=== PATIENT | female | born 1975 | race Caucasian/White ===

== ENCOUNTER 2017-07-24 21:33 | Emergency (ER) | payer MEDICAID, SELFPAY ==
[2017-07-24 21:35] VITALS: BP 161/97; PULSE 100; RESP 16; TEMP 36.7; O2SAT 100; BMI 25.1
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
[2017-07-24 21:53] VITALS: BP 154/103; PULSE 89; RESP 16; O2SAT 98
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
[2017-07-24] MEDS: HYDROcodone Bitartrate/Apap 5/325 Tablet PO (22:06)
[2017-07-24] MEDS: Ondansetron ODT 4 MG Tablet PO (22:06)
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
[2017-07-24 23:07] VITALS: BP 150/83; PULSE 78; RESP 16; O2SAT 98
== END 2017-07-24 23:09 | disposition home or self-care (01) ==
LOC: ED 22:07
PROVIDERS: Emergency Provider Emergency Medicine; Family Provider Nurse Practitioner Family; PCP Nurse Practitioner Family
DX: S00.33XA Contusion of nose, initial encounter (principal); S05.12XA Contusion of eyeball and orbital tissues, left eye, initial encounter; S05.11XA Contusion of eyeball and orbital tissues, right eye, initial encounter; H43.392 Other vitreous opacities, left eye; I10 Essential (primary) hypertension; F17.210 Nicotine dependence, cigarettes, uncomplicated; Z79.899 Other long term (current) drug therapy; Y04.2XXA Assault by strike against or bumped into by another person, initial encounter; Y93.89 Activity, other specified; Y92.89 Other specified places as the place of occurrence of the external cause; Y99.8 Other external cause status
CPT/HCPCS: 70450; 70486; 99283

== ENCOUNTER → 2017-09-28 13:45 | Outpatient (CLI) | payer MEDICAID, SELFPAY ==
--- NOTE | 2017-09-28 | CER_PTH ---
PATIENT: SIMON PALACIO LOC: [facility] U#:[id number] AGE/SX: 49/F ROOM: RE09/28/[address]: Dr. John Campos MD : 1975 BED: DIS: SPEC #: [id number] RECD: 09/28/17 13:37 STATUS: ONUR ELBERT #: [id number] GUS: 09/28/17 00:[address]: John Campos DEPT: SURGICAL PATHOLOGY RECD BY: David Moreno Tissues: A - Uterine cervix, NOS B - Endocervical Procedures: Surgery Specimen Level IV HEADER OPERATION: Colposcopy PRE-OP DIAGNOSIS: HGSIL pap 02/2017 TISSUE SUBMITTED: A ? Cervical biopsy 10 o?clock, B - ECC MICROSCOPIC DIAGNOSIS A. Cervix at 10 o?clock, biopsy: Mild squamous dysplasia, WILTON I (LGSIL). Changes consistent with HPV cytopathic effect. B. Endocervix, curettings: Strips of benign endocervix with squamous metaplasia. Strips of squamous epithelium with mild to moderate squamous dysplasia, WILTON I-II (HGSIL). AM:selin 10/02/17 COMMENT A. Results from immunohistochemistry ([id number]) for surrogate HPV marker (p16) will be reported separately. Case has been reviewed in consultation with Dr. Wang who concurs with the above diagnosis. IDC:IVANIA MICROSCOPIC DESCRIPTION Slides are reviewed. GROSS DESCRIPTION A - Received in fixative is one container labeled with the patient's name and designated cervical biopsy 10 o'clock. The specimen consists of multiple fragments of mucoid tissue that in aggregate measure 2 x 0.2 x 0.1 cm. The specimen is totally submitted in one cassette. B - Received in fixative is one container labeled with the patient's name and designated ECC. The specimen consists of multiple fragments of hemorrhagic mucoid tissue that in aggregate measure 3 x 2.5 x 0.2 cm. The specimen is totally submitted in one cassette. / IVANIA:selin 09/29/17 TC:0 CPT: 09949 x2
--- NOTE | 2017-09-28 | IMM_PTH ---
PATIENT: SIMON PALACIO LOC: [facility] U#:[id number] AGE/SX: 49/F ROOM: RE09/28/[address]: Dr. John Campos MD : 1975 BED: DIS: SPEC #: [id number] RECD: 10/02/17 14:23 STATUS: ONUR RENidia #: [id number] GUS: 09/28/17 00:[address]: John Campos DEPT: IMMUNOHISTOCHEMISTRY RECD BY: Bhumi Ramirez Tissues: A - Uterine cervix, NOS B - Endocervical Procedures: p16 (initial) KI-67 (add) PHYSICIAN & [place] [id number] SPECIMEN INFORMATION: Tissue Source: A ? Cervical biopsy 10 o?clock, B - [facility] Clinical Info: HGSIL Specimen Number: [id number] A & B CPT code: 19958 x2, 26296 x2 METHODOLOGY: Deparaffinized sections of prefer/formalin-fixed tissue or PAP/DQ stained slides are incubated with monoclonal/polyclonal antibodies/oligonucleotide probes. Localization is made via biotin free immunoperoxidase method. Appropriate controls are performed and reacted as expected. Results on target cell population are indicated in the following table: RESULTS: ANTIBODY / CLONE RESULT Block A P16 (E6H4) positive, rare cells Ki-67 (30-9) positive, focal Block B P16 (E6H4) positive, block-like Ki-67 (30-9) positive, moderate These tests were developed and their performance characteristics determined by [facility]. They may not have been cleared or approved by the U.S. Food and Drug Administration. The FDA has determined that such clearance or approval is not necessary. INTERPRETATION: A. Cervix at 10 o?clock, biopsy: Consistent with mild squamous dysplasia. B. Endocervix, curettings: Mild to moderate squamous dysplasia, WILTON I-II (HGSIL). AM:selin 10/06/17
== END ==
PROVIDERS: Visit Provider Obstetrics & Gynecology
DX: R87.612 Low grade squamous intraepithelial lesion on cytologic smear of cervix (LGSIL) (principal)
CPT/HCPCS: 88305; 88341; 88342

== ENCOUNTER 2017-11-08 08:03 | Day surgery (SDC) | payer MEDICAID, SELFPAY ==
[2017-11-07 15:31] LABS: Hematocrit 45.1 % (37-47); Hemoglobin 14.8 g/dl (12.0-15.0); Mean Corp Hgb Conc 32.8 g/gl (32-36); Mean Corpuscular Hgb 31.5 pg (27.0-32.0); Mean Platelet Vol. 9.5 fl (6.2-12.0); Platelet Count 231 K/mm3 (150-450); RBC Distribution Width CV 14.6 % (11.6-14.6); RBC Distribution Width SD 51.4 fl (35.1-43.9); White Blood Count 4.5 K/mm3 (4.4-11.0)
[2017-11-07 15:37] LABS: Scan Indicated on CBC? Y/N NO
[2017-11-07 15:40] LABS: Prothrombin Time (Protime)PT. 13.1 SECONDS (11.7-14.9)
[2017-11-07 15:41] LABS: Partial Thromboplast Time 30.3 Seconds (24.1-36.2)
[2017-11-07 15:54] LABS: Pregnancy, Serum, hCG Quali. NEGATIVE Negative (0-9 Nonpreg)
--- NOTE | 2017-11-08 | IMM_PTH ---
PATIENT: SIMON PALACIO [place]: [facility] [place] U#:[id number] AGE/SX: 42/F ROOM: RE11/08/[address]: Dr. John Campos MD : 1975 BED: DIS: 11/08/2017 SPEC #: [id number] RECD: 11/09/17 12:40 STATUS: ONUR REQ #: [id number] GUS: 11/08/17 00:[address]: John Campos DEPT: IMMUNOHISTOCHEMISTRY RECD BY: Bhumi Ramirez ENTERED: 11/09/17 12:41 SP TYPE: IMMUNO OTHR DR: Berta Narayanan, SVITLANA-C Tissues: Uterine cervix, NOS Procedures: p16 (initial) KI-67 (add) P16 (add) PHYSICIAN & INSTITUTION [place] [address] SPECIMEN INFORMATION: Tissue Source: LEEFroylan hernandez Clinical Info: Cervical dysplasia Specimen Number: [id number] #2 & 4 CPT code: 06292, 72342 x3 METHODOLOGY: Deparaffinized sections of prefer/formalin-fixed tissue or PAP/DQ stained slides are incubated with monoclonal/polyclonal antibodies/oligonucleotide probes. Localization is made via biotin free immunoperoxidase method. Appropriate controls are performed and reacted as expected. Results on target cell population are indicated in the following table: RESULTS: ANTIBODY / CLONE RESULT Block 2 P16 (E6H4) positive, focal and patchy Ki-67 (30-9) positive, low to moderate Block 4 P16 (E6H4) positive, focal and patchy Ki-67 (30-9) positive, low These tests were developed and their performance characteristics determined by [facility]. They may not have been cleared or approved by the U.S. Food and Drug Administration. The FDA has determined that such clearance or approval is not necessary. INTERPRETATION: LEEP cone: Focal mild squamous dysplasia. IVANIA:selin 11/10/17
[2017-11-08 08:34] LABS: Internal QC Validated? YES +Cl - CLEAR BKGD
[2017-11-08 08:36] LABS: Pregnancy, Urine Negative Negative
[2017-11-08 08:42] VITALS: BP 122/83; PULSE 78; RESP 18; TEMP 36.6; O2SAT 98; BMI 25.7
--- NOTE | 2017-11-08 09:30 | CONE_PTH ---
PATIENT: SIMON PALACIO LOC: [facility] [place] U#:[id number] AGE/SX: 42/F ROOM: RE11/08/[address]: Dr. John Campos MD : 1975 BED: DIS: 11/08/2017 SPEC #: [id number] RECD: 11/08/17 12:14 STATUS: ONUR ELBERT #: [id number] GUS: 11/08/17 09:[address]: John Campos DEPT: SURGICAL PATHOLOGY RECD BY: Yusuf Muhammad ENTERED: 11/08/17 12:28 SP TYPE: Leep Cone MECHELLE DR: Berta Narayanan, SVITLANA-C Tissues: UTERINE CERVIX LEEP Procedures: Surgery Specimen Level V HEADER OPERATION: LEEP cone PRE-OP DIAGNOSIS: Cervical dysplasia TISSUE SUBMITTED: LEEP cone MICROSCOPIC DIAGNOSIS Cervix, LEEP conization: Mild squamous dysplasia (LGSIL, WILTON I). The resection margins are free of dysplastic changes. Focal mild acute and chronic inflammation and squamous metaplasia. :selin 11/09/17 COMMENT Please make reference to previous specimen ([id number]) cervix at 10 o?clock, biopsy with diagnosis of mild squamous dysplasia and endocervix, curettings with diagnosis of strips of squamous epithelium with mild to moderate squamous dysplasia. Results from immunohistochemistry ([id number]) for surrogate HPV marker (p16) will be reported separately. MICROSCOPIC DESCRIPTION Slides are reviewed. GROSS DESCRIPTION Received in fixative is one container labeled with the patient's name and designated LEE cone. The specimen consists of an irregular fragment of smooth, glistening barba mucosa with attached submucosal tissue measuring 2.1 x 1.2 cm and a depth of excision measuring 1 cm. No mucosal mass lesions are identified. The specimen is inked, radially sectioned and totally submitted in four cassettes: 1 ? presumed 12-3 o?clock, 2 ? presumed 3-6 o?clock, 3 ? presumed 6-9 o?clock, 4 ? presumed 9-12 o?clock. / AM:selin 11/08/17 TC:5 CPT: 05690
--- NOTE | 2017-11-08 10:04 | PCM.DC ---
- Discharge Diagnoses Reason(s) for Visit for Discharge Instructions: LEEP You will use the following diet at home:: No restrictions Discharge Activity: Return to Normal Activity, May Drive, May not drive while taking narcotic pain medications., May Shower Return to work on:: 11/13/17 May resume sexual activity in: 4 weeks Call your doctor if your incision/area has: Sudden Increased Bleeding, Increased Pain/ Swelling, Foul Smelling Discharge Call your doctor if you observe: Fever of 101 or Higher, Inability to urinate, Inability to have a bowel movement, Using more than one pad per hour, Shortness of breath, Chest pain, Calf discomfort, Uncontrolled pain Cleanse incision/area with: Soap & Water Allergies/Adverse Reactions: Allergies Penicillins Allergy (Verified 10/31/17 13:23) Hives Medications to take at Discharge Lisinopril 20 mg PO DAILY 07/24/17 Ergocalciferol [Vitamin D] 50,000 unit PO Q7D 11/08/17 Ibuprofen [Ibu] 600 mg PO Q6H PRN PRN #30 tab 11/08/17 [place]-3 Fatty Acids/Fish Oil [Fish Oil 1,000 mg Capsule] 2 each PO DAILY 11/08/17 Oxycodone [Oxyir] 5 mg PO Q4H PRN PRN 7 Days #14 tab 11/08/17 The following prescriptions were given: Oxycodone [Oxyir] 5 mg PO Q4H PRN PRN 7 Days #14 tab PRN Reason: Severe Pain (6-10/10) Ibuprofen [Ibu] 600 mg PO Q6H PRN PRN #30 tab PRN Reason: pain or cramping Primary Care Physician: Berta Narayanan NP-C [Primary Care Provider] - Please Follow Up With: John Campos MD When: one week Proposed Discharge Date: 11/08/17
--- NOTE | 2017-11-08 10:06 | PCM.OPRPT ---
Problem List (1) Moderate cervical dysplasia, histologically confirmed Status: Chronic Report of Operation Date of Procedure: 11/08/17 Pre-Operative Diagnosis: Moderate Cervical Dysplasia Post-Operative Diagnosis: same Surgery/Procedure Performed:: Loop Electrosurgical Excisional Procedure Description of Surgical Findings:: Normal appearing cervix. Transition zone well defined with nonstaining area extending to 2 to 3 o'clock laboratory coordinator: None Type of Anesthesia:: MAC Anesthesiologist: Antoni Pinto Special Medications: none Specimen's removed: portion of cervix Drains: none Estimated Blood Loss (mL): minimal Fluids Replaced: 400cc Description of Procedure: Oxana was taken to the OR with IV running. She was given clindamycin and gentamicin intravenously prior to the procedure. MAC anesthesia was then introduced without complication. She was then prepped and draped in the dorsal lithotomy position. The bladder was drained with a red rubber catheter. A shielded speculum was then placed. The cervix was identified and painted with lugol's solution to define the transition zone. Using a hand held loop the exocervix was removed. Ball cautery was then used to cauterize the base of the cervical defect and margins including the endocervix. Hemostasis was assured. All instruments were then removed. Sponge and instrument counts were correct. She was reversed from anesthesia and taken to the recovery room in stable condition. Grafts/Implants Used: none - Complications none - Admit VTE Documentation VTE Present on Admission: No VTE Mechan Device Prophylaxis: SCD's VTE Pharm Prophylaxis ordered?: No
[2017-11-08] MEDS: Clindamycin 900 MG/50 ML BAG 75 MG IV (10:25)
[2017-11-08 11:00] VITALS: BP 122/83; BP 133/78; PULSE 85; RESP 16; TEMP 37; O2SAT 97
[2017-11-08 11:15] VITALS: BP 122/83; BP 123/76; PULSE 80; RESP 16; O2SAT 96
[2017-11-08 11:30] VITALS: BP 111/72; BP 122/83; PULSE 72; RESP 16; O2SAT 96
[2017-11-08 11:35] VITALS: BP 111/72; BP 122/83; PULSE 67; RESP 16; TEMP 37.1; O2SAT 94
[2017-11-08 12:25] VITALS: BP 122/83
== END 2017-11-08 12:29 | disposition home or self-care (01) ==
LOC: SDC 08:04 → AC 08:05
PROVIDERS: Family Provider Nurse Practitioner Family; PCP Nurse Practitioner Family; Visit Provider Obstetrics & Gynecology
PROC: 0UBC7ZZ Excision of Cervix, Via Natural or Artificial Opening (ICD-10-PCS; CPT 57522; principal; 2017-11-08 09:15)
DX: R87.612 Low grade squamous intraepithelial lesion on cytologic smear of cervix (LGSIL) (principal); N72 Inflammatory disease of cervix uteri; I10 Essential (primary) hypertension; F17.200 Nicotine dependence, unspecified, uncomplicated; Z86.2 Personal history of diseases of the blood and blood-forming organs and certain disorders involving the immune mechanism; Z79.899 Other long term (current) drug therapy
CPT/HCPCS: 00940; 57460; 36415; 81025; 84703; 85027; 85610; 85730; 86850; 86900; 88307; 88341; 88342; J7120

== ENCOUNTER 2017-11-28 16:53 | Emergency (ER) | payer MEDICAID, SELFPAY ==
[2017-11-28 16:54] VITALS: BP 124/74; PULSE 98; RESP 16; TEMP 37; O2SAT 100; BMI 25.7
--- NOTE | 2017-11-28 17:10 | CT_ITS ---
STUDY: CT ABDOMEN AND PELVIS WITHOUT CONTRAST REASON FOR EXAM: Female, 42 years old. Right flank pain. Nausea. RADIATION DOSAGE (If Supplied By Facility): CTDIvol = ( 9.62 ) mGy, DLP = ( 464.55 ) mGycm TECHNIQUE: Transaxial images were obtained from the dome of the diaphragm to the symphysis pubis without oral contrast, and without intravenous contrast. Sagittal and coronal images were reconstructed. Individualized dose optimization techniques were used for this CT. COMPARISON: August 26, 2013. FINDINGS: The visualized lung bases are unremarkable. The visualized portions of the heart are within normal limits. Normal liver. The gallbladder is contracted. Normal spleen. Normal pancreas. Normal bilateral adrenal glands. Normal right kidney. Normal left kidney. No stones or hydronephrosis. Normal visualized stomach. Normal small intestine. Normal colon. The appendix is visualized and appears normal. There is mild atherosclerotic calcification of the abdominal aorta, without a demonstrated aneurysm. Normal inferior vena cava. Normal retroperitoneum. Normal urinary bladder. Normal visualized uterus. There is no free fluid in the abdomen or pelvis. Normal abdominal wall. Normal osseous structures. CT/Abdomen/Pelvis without Cont IMPRESSION: No urinary stones or hydronephrosis. Contracted gallbladder No obstruction. Electronically Signed: Willi Raya MD at 18:40 EDT , Service support ,
[2017-11-28 17:25] LABS: Bacteria 0 SEEN /hpf (None Seen); Mucous, Urine 0 SEEN /hpf (<or=2+); Red Blood Cells-Urine 0 SEEN /hpf (0-5)
[2017-11-28 17:29] LABS: Color, Urine Yellow (Yellow); Glucose, Dipstick Normal (Normal); Ketone-Dipstick Negative (Negative); Leukocyte Esterase-Dipstick 500 /ul (Negative); Nitrite-Dipstick Negative (Negative); Occult Blood-Urine Negative /ul (Negative); Protein-Dipstick Negative (Negative); Urine Bilirubin Dipstick Negative (Negative); Urine Clarity Clear (Clear); Urine Urobilinogen Normal (Normal); Urine pH 6.5 (5.0 - 8.0)
[2017-11-28] MEDS: Ondansetron 4 MG/2 ML Vial IV (17:37)
[2017-11-28] MEDS: Ketorolac 30 MG/ML Syringe IV (17:39)
[2017-11-28 17:42] LABS: Squamous Epithelial Cells - UA 0-5 SEEN /hpf (5-10); White Blood Cells 0-5 SEEN /hpf (0-5)
--- NOTE | 2017-11-28 17:48 | ED.VISSUMM ---
- ER Visit Summary Date of Service: 11/28/17 Chief Complaint: Right flank pain History of Present Illness: The patient is a 42 F presenting with right flank pain. She states this started on Monday. She states it has progressively worsened. She has nausea with no vomiting. She has mild constipation. She complains of dysuria. Denies other complaints. Physical Examination: Vitals are stable. Patient is afebrile. Alert no acute distress. HEENT exam is unremarkable. Neck is supple. Lungs are clear and equal bilaterally. Heart is regular rate and rhythm. Abdomen is soft right lower quadrant tenderness with no rebound or guarding Back: right CVA tenderness Extremities are unremarkable. Skin is warm and dry. No focal neurologic deficit. Remainder of exam is unremarkable. Emergency Department Course and Treatment: Patient is given Toradol, Zofran. CBC, chemistries unremarkable. Urinalysis is unremarkable. HCG negative. CT abdomen pelvis shows no urinary stones or hydronephrosis. Contracted gallbladder. No obstruction. She continues to have pain and was given morphine, Phenergan. Pelvic ultrasound shows left adnexal cyst. On reevaluation, she is resting comfortably. She is advised to follow-up with her COMPRESSOR OPERATOR and primary care physician. She is advised return to ED if she has any worsening complaints. Disposition: Discharge home Impression: Abdominal pain, left adnexal cyst This note was generated with [employer] dictation software. It may contain incorrect words, spelling, and punctuation that were not noted in review of the chart prior to signing ED Disposition - Plan for ED Patient: Chief Complaint: Flank Pain Instructions: ED Abdominal Pain Unkn Cause, ED Cyst Ovarian Prescriptions: Hydrocodone Bitart/Apap 5-325 [[place] 5MG-325MG] 1 tablet PO Q4H PRN PRN 2 Days #8 tablet PRN Reason: Pain Ondansetron [Zofran Odt] 4 mg PO Q8H PRN PRN #10 tablet PRN Reason: Nausea Referrals: Berta Narayanan NP-C [Primary Care Provider] -
[2017-11-28 17:50] LABS: Absolute Lymphocyte Count 1.89 X10^3/ul (0.83-4.51); Absolute Neutrophil Count 5.3 X10^3/uL (2.0-7.7); Basophil# 0.02 X10^3/uL; Basophil% 0.3 % (0-1); Eosinophil# 0.05 X10^3/uL; Eosinophils% 0.6 % (0-5); Hematocrit 46.1 % (37-47); Hemoglobin 15.2 g/dl (12.0-15.0); Lymphocyte # 1.89 X10^3/ul (4.0); Lymphocyte % 24.2 % (19-41); Mean Corpuscular Hgb 31.1 pg (27.0-32.0); Mean Corpuscular Volume 94.5 fL (81-99); Mean Platelet Vol. 9.2 fl (6.2-12.0); Monocyte# 0.52 X10^3/uL; Monocyte% 6.6 % (0-10); Neutrophil # 5.33 X10^3/uL (2.7-7.7); Neutrophil % 68.2 % (47-70); Platelet Count 233 K/mm3 (150-450); RBC Distribution Width CV 14.5 % (11.6-14.6); RBC Distribution Width SD 49.9 fl (35.1-43.9); Red Blood Count 4.88 M/mm3 (4.2-5.4); White Blood Count 7.8 K/mm3 (4.4-11.0)
[2017-11-28 17:53] LABS: POSITIVE COUNT NO; POSITIVE DIFFERENTIAL NO; POSITIVE MORPHOLOGY NO
[2017-11-28 18:04] LABS: Anion Gap 10 (5-15); BUN 7 mg/dL (7-18); BUN/Creat Ratio 7.8 RATIO (10-20); Calcium,Total 8.8 mg/dL (8.5-10.1); Chloride 105 mmol/L (98-107); EST Glomerular Filtration Rate 74 mL/min (>60); Est Glom Filt Rate - Afr Amer 89 mL/min (>60); Glucose 90 mg/dL (74-106); Potassium 3.9 mmol/L (3.5-5.1); Sodium Level 139 mmol/L (136-145)
[2017-11-28 18:30] LABS: Pregnancy, Serum, hCG Quali. NEGATIVE Negative (0-9 Nonpreg)
--- NOTE | 2017-11-28 18:48 | US_ITS ---
STUDY: ULTRASOUND OF THE FEMALE PELVIS - COMPLETE REASON FOR EXAM: Female, 42 years old. Right lower quadrant pain. LMP: November 10, 2017. TECHNIQUE: Transabdominal. TECHNICAL QUALITY: Adequate. COMPARISON: None. FINDINGS: The uterus is anteverted and is in a midline position. The uterus measures 8.5 x 4.7 x 3.7 cm. Normal uterine cervix. The endometrium measures 11 mm in thickness, and is heterogeneous (striated). There is no demonstrated endometrial mass. There is no demonstrated myometrial mass. I.U.D. - The patient does not have an I.U.D. The right ovary is visualized. The right ovary measures 3.2 x 2.4 x 1.5 cm. There is no right ovarian cyst or ovarian mass. There is no visualized right adnexal mass or complex lesion. There is normal arterial and normal venous vascularity. The left ovary is visualized. The left ovary measures 4.2 x 2.7 x 1.6 cm. There is 2.7 cm cyst. There is no visualized left adnexal mass or complex lesion. There is normal arterial and normal venous vascularity. There is no fluid in the cul-de-sac. The pre void volume of the bladder was 179 ml. US/Pelvic (Non ) IMPRESSION: Left adnexal cyst. Electronically Signed: Willi Raya MD at 20:14 EDT , Service support ,
[2017-11-28] MEDS: proMETHazine 25 MG/ML Syringe 6.25 MG IV (19:00)
[2017-11-28] MEDS: Morphine 4 MG/ML Syringe IV (19:00)
[2017-11-28 19:02] VITALS: BP 134/77; PULSE 69; RESP 15; O2SAT 98
--- NOTE | 2017-11-28 20:17 | NURSING ---
REQUESTED PAIN MEDICATION AND LET THE DOCTOR KNOW THAT WE WILL GIVE HER MEDICATION BEFORE WE DO THE PELVIC EXAM TO ALLEVIATE SOME OF THE PAIN.
--- NOTE | 2017-11-28 21:44 | ED.DEP ---
ED Disposition - Plan for ED Patient: Chief Complaint: Flank Pain Instructions: ED Cyst Ovarian, ED Abdominal Pain Unkn Cause Prescriptions: Hydrocodone Bitart/Apap 5-325 [[place] 5MG-325MG] 1 tablet PO Q4H PRN PRN 2 Days #8 tablet PRN Reason: Pain Ondansetron [Zofran Odt] 4 mg PO Q8H PRN PRN #10 tablet PRN Reason: Nausea Referrals: Berta Narayanan, REELER OPERATOR-C [Primary Care Provider] -
--- NOTE | 2017-11-28 21:46 | DCINST.ED_ITS ---
ED Disposition - Plan for ED Patient: Chief Complaint: Flank Pain Instructions: ED Cyst Ovarian, ED Abdominal Pain Unkn Cause Prescriptions: Hydrocodone Bitart/Apap 5-325 [[place] 5MG-325MG] 1 tablet PO Q4H PRN PRN 2 Days # 8 tablet PRN Reason: Pain Ondansetron [Zofran Odt] 4 mg PO Q8H PRN PRN #10 tablet PRN Reason: Nausea Referrals: Berta Narayanan, INSTRUCTOR APPAREL MANUFACTURE-C [Primary Care Provider] -
[2017-11-28 21:58] VITALS: BP 111/69; PULSE 73; RESP 18; O2SAT 97
--- NOTE | 2017-11-28 22:00 | NURSING ---
DOCTOR DECIDED TO NOT DO THE PELVIC EXAM AND DID NOT WANT TO GIVE HER THE MEDICATION FOR PAIN. PT WAS D/C WITH RX FOR NORCO AND ZOFRAN.
== END 2017-11-28 22:01 | disposition home or self-care (01) ==
LOC: ED 17:30
PROVIDERS: Emergency Provider Emergency Medicine; Family Provider Nurse Practitioner Family; PCP Nurse Practitioner Family
DX: N83.202 Unspecified ovarian cyst, left side (principal); R10.9 Unspecified abdominal pain; I10 Essential (primary) hypertension; E78.00 Pure hypercholesterolemia, unspecified; Z72.0 Tobacco use; Z79.899 Other long term (current) drug therapy
CPT/HCPCS: 74176; 76856; 80048; 81001; 84703; 85025; 93976; 96374; 96375; 99283; A4216; J2405

== ENCOUNTER 2018-03-04 16:01 | Emergency (ER) | payer MEDICAID, SELFPAY ==
[2018-03-04 16:02] VITALS: BP 174/85; PULSE 139; RESP 16; TEMP 36.6; O2SAT 100; BMI 26.4
[2018-03-04 16:15] LABS: Bedside Glucose 92 mg/dL (70-110)
--- NOTE | 2018-03-04 16:29 | EKG12_ITS ---
Test Reason : Blood Pressure : / mmHG Vent. Rate : 135 BPM Atrial Rate : 135 BPM P-R Int : 134 ms QRS Dur : 080 ms QT Int : 366 ms P-R-T Axes : 075 064 087 degrees QTc Int : 549 ms Sinus tachycardia Poor R wave progression Nonspecific ST and T wave abnormality Abnormal ECG Confirmed by FABRICIO WALTON, MEMO ([id number]), editor & co founder IGOR CORTES ([id number] on 03/07/2018 2:33:58 PM Referred By: JADE Confirmed By:MEMO REGALADO MD
--- NOTE | 2018-03-04 16:29 | CT_ITS ---
STUDY: CT BRAIN WITHOUT CONTRAST REASON FOR EXAM: Female, 42 years old. Dizziness, headache. Numbness and tingling in feet. RADIATION DOSAGE (If Supplied By Facility): CTDIvol = ( 44.99 ) mGy, DLP = ( 745.49 ) mGycm TECHNIQUE: Transaxial CT imaging of the brain was performed without administration of intravenous contrast material. Individualized dose optimization techniques were used for this CT. COMPARISON: Noncontrast CT brain July 24, 2017. FINDINGS: Normal soft tissue structures. Normal calvarium. Normal size ventricles and extra-axial spaces for the patient's age. Normal white matter tracts of the cerebral hemispheres. Normal basal ganglia and thalami. Normal brainstem. Normal cerebellum. There is no intracranial hemorrhage. There are no findings of an acute ischemic infarction. Normal visualized paranasal sinuses. CT/Brain/Head without Contrast IMPRESSION: Normal unenhanced CT scan of the brain. Electronically Signed: Nate Gilman MD at 17:15 EDT , Service support ,
[2018-03-04] MEDS: 0.9% Normal Saline 1,000 ML 1000 ML IV (16:41)
[2018-03-04] MEDS: LORazepam 2 MG/ML Syringe 1 MG IV ×2 (16:42→18:45)
[2018-03-04] MEDS: proMETHazine 25 MG/ML Syringe 6.25 MG IV (16:42)
[2018-03-04 16:57] LABS: Absolute Lymphocyte Count 1.26 X10^3/ul (0.83-4.51); Absolute Neutrophil Count 9.3 X10^3/uL (2.0-7.7); Basophil# 0.03 X10^3/uL; Basophil% 0.3 % (0-1); Hematocrit 44.9 % (37-47); Hemoglobin 14.7 g/dl (12.0-15.0); Lymphocyte # 1.26 X10^3/ul (4.0); Lymphocyte % 11.4 % (19-41); Mean Corp Hgb Conc 32.7 g/gl (32-36); Mean Corpuscular Hgb 29.5 pg (27.0-32.0); Mean Corpuscular Volume 90.2 fL (81-99); Mean Platelet Vol. 9.5 fl (6.2-12.0); Monocyte# 0.47 X10^3/uL; Monocyte% 4.3 % (0-10); Neutrophil # 9.26 X10^3/uL (2.7-7.7); Neutrophil % 83.9 % (47-70); Platelet Count 215 K/mm3 (150-450); RBC Distribution Width CV 16.6 % (11.6-14.6); RBC Distribution Width SD 54.4 fl (35.1-43.9); Red Blood Count 4.98 M/mm3 (4.2-5.4)
[2018-03-04 17:03] LABS: POSITIVE COUNT NO; POSITIVE DIFFERENTIAL NO; POSITIVE MORPHOLOGY NO
[2018-03-04 17:11] LABS: D-Dimer Quantitative (DVT/PE) 1.17 FEU/ug/m (0.27-0.49)
--- NOTE | 2018-03-04 17:11 | ED.RN ---
DDIMER 1.[address] CALL[address] LAB. DR HINES AWARE
[2018-03-04 17:12] LABS: ALB/GLOB Ratio 0.9 RATIO (0.9-2.4); AST(SGOT) 26 U/L (15-37); Alanine Aminotransfer ALT/SGPT 25 U/L (13-56); Albumin, Serum 3.7 g/dL (3.2-5.0); Alkaline Phosphatase 86 U/L (45-117); Anion Gap 19 (5-15); BUN 8 mg/dL (7-18); BUN/Creat Ratio 9.9 RATIO (10-20); Calcium,Total 8.5 mg/dL (8.5-10.1); Chloride 99 mmol/L (98-107); Creatinine, Serum 0.81 mg/dL (0.55-1.02); EST Glomerular Filtration Rate 83 mL/min (>60); Est Glom Filt Rate - Afr Amer 100 mL/min (>60); Estimated Creatinine Clearance 79.72 ml/min; Globulin 3.9 g/dL (2.2-4.2); Glucose 115 mg/dL (74-106); Lipase 108 U/L (73-393); Potassium 3.7 mmol/L (3.5-5.1); Protein, Total 7.6 g/dL (6.4-8.2); Sodium Level 134 mmol/L (136-145)
[2018-03-04 17:17] LABS: Pregnancy, Serum, hCG Quali. NEGATIVE Negative (0-9 Nonpreg)
--- NOTE | 2018-03-04 17:28 | CT_ITS ---
STUDY: CTA CHEST REASON FOR EXAM: Female, 42 years old. Tachycardia RADIATION DOSAGE (If Supplied By Facility): CTDIvol = ( 5.66 ) mGy, DLP = ( 244.47 ) mGycm TECHNIQUE: The examination was performed with the intravenous administration of 100 ml of Isovue 370 contrast material. Post-processing of the angiographic images was performed, with multiplanar reformation and 3D reconstruction. Individualized dose optimization techniques were used for this CT. COMPARISON: None. FINDINGS: Normal enhancement of the main pulmonary artery and right and left pulmonary arteries. Normal enhancement of the bilateral peripheral pulmonary arteries. There is no demonstrated pulmonary embolism. Normal thoracic aorta and visualized great vessels. There is no demonstrated aortic dissection. Normal heart and pericardium. Normal mediastinum. Normal hilar regions. Normal visualized trachea and bronchi. The lungs are well expanded. There is a 3.6 mm left lower lobe nodule image 114 of series 2. There is a 3 mm pleural-based nodule of the left lower lobe, image 107 of series 2. There is a pleural-based 3 mm nodule of the right upper lobe image 167 of series 2. Normal pleura. Normal chest wall structures. Normal osseous structures. Normal visualized upper abdomen. CT/CTA Chest W/WO Contrast IMPRESSION: Normal CTA chest examination, without a demonstrated pulmonary embolism or arterial dissection. Bilateral pulmonary nodules. Appropriate follow-up using Fleischner Society criteria is recommended. Electronically Signed: Alexander Maurice MD at 19:24 EDT , Service support ,
[2018-03-04 18:28] VITALS: BP 138/72; PULSE 121; RESP 17; O2SAT 97
[2018-03-04 19:05] LABS: Amphetamine Urine VISTA POSITIVE (<1000 ng/mL); Barbiturate Urine VISTA NEGATIVE (< 200 ng/mL); Benzodiazepine Urine VISTA NEGATIVE (< 200 ng/mL); Cocaine Urine VISTA NEGATIVE (< 300 ng/mL); Ecstacy Urine VISTA NEGATIVE (< 500 ng/mL); Methadone Urine VISTA NEGATIVE (< 300 ng/mL); PCP Urine VISTA NEGATIVE (< 25 ng/mL); THC Urine VISTA NEGATIVE (< 50 ng/mL); Vista UDS pH Range 7
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
--- NOTE | 2018-03-04 19:46 | DCINST.ED_ITS ---
ED Disposition - Plan for ED Patient: Chief Complaint: Dizziness Instructions: ED Hyperventilation Syndrome, Hypoglycemia (Low Blood Sugar), ED Drug Abuse General, Understanding Methamphetamine Abuse and Addiction Prescriptions: Lorazepam [Ativan] 1 mg PO TID PRN #10 tab PRN Reason: Anxiety Referrals: Berta Narayanan, CODING FILE CLERK-C [Primary Care Provider] - 3-5 Days
[2018-03-04 20:03] VITALS: BP 126/72; PULSE 112; RESP 18; O2SAT 96
== END 2018-03-04 20:04 | disposition home or self-care (01) ==
PROVIDERS: Emergency Provider Emergency Medicine; Family Provider Nurse Practitioner Family; PCP Nurse Practitioner Family
DX: R51 Headache (principal); T43.625A Adverse effect of amphetamines, initial encounter; F45.8 Other somatoform disorders; F10.239 Alcohol dependence with withdrawal, unspecified; E16.2 Hypoglycemia, unspecified; I10 Essential (primary) hypertension; E78.00 Pure hypercholesterolemia, unspecified; Z72.0 Tobacco use; Z79.899 Other long term (current) drug therapy; Y92.009 Unspecified place in unspecified non-institutional (private) residence as the place of occurrence of the external cause
CPT/HCPCS: 36415; 70450; 71275; 80053; 80307; 82962; 83690; 84484; 84703; 85025; 85379; 93005; 96361; 96374; 96375; 96376; 99285; J7030; Q9967; A4216

== ENCOUNTER 2018-04-23 14:45 | Emergency (ER) | payer MEDICAID, SELFPAY ==
[2018-04-23 14:46] VITALS: BP 143/100; PULSE 82; RESP 18; TEMP 36.6; O2SAT 99; BMI 24.3
== END 2018-04-23 15:26 | disposition left against medical advice (07) ==
LOC: ED 15:15
PROVIDERS: Emergency Provider Emergency Medicine; Family Provider Nurse Practitioner Family; PCP Nurse Practitioner Family
DX: R10.9 Unspecified abdominal pain (principal)

== ENCOUNTER → 2018-06-06 05:46 | Outpatient (CLI) | payer MEDICAID, SELFPAY ==
[2018-05-07 11:44] LABS: Hematocrit 39.5 % (37-47); Hemoglobin 13.4 g/dl (12.0-15.0); Mean Corp Hgb Conc 33.9 g/gl (32-36); Mean Corpuscular Hgb 30.9 pg (27.0-32.0); Mean Platelet Vol. 10.1 fl (6.2-12.0); Platelet Count 224 K/mm3 (150-450); RBC Distribution Width CV 13.8 % (11.6-14.6); RBC Distribution Width SD 45.5 fl (35.1-43.9); Red Blood Count 4.34 M/mm3 (4.2-5.4); Scan Indicated on CBC? Y/N NO; White Blood Count 4.3 K/mm3 (4.4-11.0)
[2018-05-07 11:53] LABS: Prothrombin Time (Protime)PT. 13.4 SECONDS (11.7-14.9)
[2018-05-07 12:18] LABS: hCG Titer Quant., Serum < 1 mIU/mL (<9 non-preg)
--- OUTSIDE RECORDS SUMMARY | 2018-09-07 07:25 | XMS RPT_ITS ---
:1975 Author Organization OHIP Support Name Relationship Address Phone AUSTIN, WILL Unavailable Unavailable + AUSTIN, WILL Unavailable Unavailable + COUCH, PIO Unavailable [address] + [place] [address] [facility] Unavailable [address] + [place] [address] COUCH, JEMIMA Unavailable Unavailable + NOT GIVEN Unavailable Unavailable Unavailable UVALDO, [place] COUCH, JEMIMA Unavailable Unavailable + NOT GIVEN Unavailable Unavailable Unavailable [place], [place] STANFORD AUSTIN Unavailable Unavailable + AUSTIN, WILL Unavailable Unavailable + AUSTIN, WILL Unavailable Unavailable + COUCH, PIO Unavailable [address] + [place] [address] [facility] Unavailable [address] + [place] [address] COUCH, JEMIMA Unavailable Unavailable + NOT GIVEN Unavailable Unavailable Unavailable UVAL[place], [place] AUSTIN, WILL Unavailable Unavailable + AUSTIN, WILL Unavailable Unavailable + COUCH, PIO Unavailable [address] + [place] [address] [facility] Unavailable [address] + [place] [address] NORMAN STANFORD Unavailable Unavailable + COUCH, PIO Unavailable [address] + [place] [address] [facility] Unavailable [address] + [place] [address] COUCH, PIO Unavailable [address] + [place] [address] [facility] Unavailable [address] + [place] [address] AUSTIN, WILL Unavailable Unavailable + AUSTIN, WILL Unavailable Unavailable + COUCH, PIO Unavailable [address] + [place] [address] UE Unavailable Unavailable Unavailable COUCH, PIO Unavailable [address] + [place] [address] UE Unavailable Unavailable Unavailable Care Team Providers Name Role Phone Oracio, Pio DIGITAL PERFORMANCE ANALYST-C Primary Care Unavailable Tez Zavala Attending Unavailable John Capmos Attending Unavailable John Campos Referring Unavailable John Campos Attending Unavailable Oracio, Pio DIGITAL PERFORMANCE ANALYST-C Primary Care Unavailable John Campos Referring Unavailable Oracio, Pio DIGITAL PERFORMANCE ANALYST-C Primary Care Unavailable Anusha Loco Attending Unavailable Oracio, Pio DIGITAL PERFORMANCE ANALYST-C Primary Care Unavailable Lyubov Elizalde Attending Unavailable Oracio, Pio DIGITAL PERFORMANCE ANALYST-C Primary Care Unavailable Anselmo Doherty Attending Unavailable John Campos Attending Unavailable Oracio, Pio DIGITAL PERFORMANCE ANALYST-C Primary Care Unavailable John Campos Referring Unavailable NITA VAZQUEZ Admitting Unavailable NITA VAZQUEZ Attending Unavailable ORACIO, PIO K Primary Care Unavailable ORACIO, PIO K Consulting Unavailable Oracio, Pio K Admitting Unavailable Oracio, Pio K Attending Unavailable Oracio, Pio K Primary Care Unavailable Oracio, Pio K Primary Care Unavailable Caleb Lane Admitting Unavailable Caleb Lane Attending Unavailable Oracio, Pio K Primary Care Unavailable DO Catherine Mcneill DO Admitting Unavailable DO Catherine Mcneill DO Attending Unavailable MALIHA GOMEZ MD Attending Unavailable ORACIO FRAMING MANAGER, PIO K Primary Care Unavailable MARILEE NAVARRO Attending Unavailable ORACIO FRAMING MANAGER, PIO K Primary Care Unavailable IMELDA OLIVIA MD Attending Unavailable ORACIO FRAMING MANAGER, PIO K Primary Care Unavailable FE CORTES DO Attending Unavailable ORACIO FRAMING MANAGER, PIO K Primary Care Unavailable PRIYANK QUARLES (FRAMING MANAGER) Attending Unavailable PRIYANK QUARLES (FRAMING MANAGER) Referring Unavailable ORACIO, PIO Admitting Unavailable ORACIO, PIO Attending Unavailable ORACIO, PIO Primary Care Unavailable EMILIE, DR DAVID Diez Admitting Unavailable EMILIE, DR DAVID Diez Attending Unavailable ORACIO, PIO Referring Unavailable EMILIE, DR DAVID Diez Primary Care Unavailable ORACIO, PIO Consulting Unavailable PROVIDER, UNKNOWN Consulting Unavailable MARGUERITE COPELANDMY M Admitting Unavailable MIN REANNA M Attending Unavailable ORACIO, PIO Referring Unavailable HABERANTON REANNA M Primary Care Unavailable ORACIO, PIO Consulting Unavailable PROVIDER, UNKNOWN Consulting Unavailable PROBLEMS PROBLEMS DATE TYPE CONDITION / CODE ATTENDING STATUS SOURCE 03/26/2018 Principle Hyperlipidemia, PIO NARAYANAN Active [facility] Diagnosis unspecified / [facility] E785(ICD-10) Hospital Repository 03/26/2018 Secondary Essential (primary) PIO NARAYANAN Active [facility] Diagnosis hypertension / [facility] I10(ICD-10) Hospital Repository 03/26/2018 Secondary Encounter for PIO NARAYANAN Active [facility] Diagnosis screening for other [facility] suspected endocrine Hospital disorder / Repository Z1329(ICD-10) 03/26/2018 Secondary Vitamin D PIO NARAYANAN Active [facility] Diagnosis deficiency, [facility] unspecified / Hospital E559(ICD-10) Repository 03/20/2018 Active Hypoglycemia, NA Active [facility] unspecified / [facility] E16.2(ICD-10) [place] Repository 03/20/2018 Active Hypotension, NA Active [facility] unspecified / [facility] I95.9(ICD-10) [facility] Repository 03/20/2018 Active Tachycardia, NA Active [facility] unspecified / [facility] R00.0(ICD-10) [facility] Repository 03/20/2018 Active Mixed hyperlipidemia NA Active [facility] / E78.2(ICD-10) [facility] [place] Repository 11/28/2017 Unknown N83.209 - [facility], Active [facility] Unspecified ovarian [facility] cyst, unspecified Hospital side / Repository N83.209(ICD-10) 11/09/2017 Unknown G89.18 - Other acute Seals, John Active [facility] postprocedural pain Community / G89.18(ICD-10) Hospital Repository 11/08/2017 Admitting PAIN IN RIGHT FOOT / NITA VAZQUEZ Active [facility] diagnosis M79.671(ICD-10) [facility] Hospital Repository 11/08/2017 Unknown GOUT UNSPECIFIED / NITA VAZQUEZ Active [facility] M10.9(ICD-10) B Hospital Repository PROCEDURES PROCEDURES No Procedure Records FoundRESULTS RESULTS UA Collected: 07/08/2018 Status: F Source: [facility] 11:53 AM [facility] EMERGENCY DEPARTMENT REPOSITORY TYPE CODE TESTS RESULT OUT OF RANGE REFERENCE UNITS LAB SPCUA([place] NC) UA Specimen Type Clean Catch LAB CLRUA([place] NC) UA Color Yellow LAB APPUA([place] Clear NC) UA Appear Unknown Slightly Cloudy LAB SGUA(LOIN 1.015-1.025 C) UA Spec Unknown Grav >=1.030 LAB GLUA(LOIN Negative mg/dL C) UA Glucose Negative LAB BILUA([place] Negative NC) UA Bili Negative LAB KETUA([place] Negative mg/dL NC) UA Ketones Negative LAB BLDUA(MAR[place] Negative NC) UA Blood Unknown Moderate LAB PHUA(LOIN 5.0 - 8.0 C) UA pH 6.0 LAB PROUA(MAR[place] Negative mg/dL NC) UA Protein Negative LAB UROUA(MAR[place] 0.2-1.0 E.U./dL NC) UA Urobilinogen 0.2 LAB NITUA(MAR[place] Negative NC) UA Nitrite Negative LAB LEUUA(MAR[place] Negative NC) UA Leuk Est Unknown Moderate Performed By: #### UA, UAMICAO #### [place] [address] .URINALYSIS MICROSCOPIC Collected: 07/08/2018 Status: F Source: [place] ([place]) 11:53 AM [facility] REPOSITORY TYPE CODE TESTS RESULT OUT OF RANGE REFERENCE UNITS LAB WBCUA(LOIN None Seen /hpf C) Unknown UA WBC 10-15 LAB RBCUA(LOIN None Seen /hpf C) Unknown UA RBC 10-15 LAB EPIUA(LOIN None Seen /hpf C) Unknown UA Squam Epithelial 10-15 LAB MUCUA(LOIN /hpf C) UA Mucous 1+ LAB AMOUA(LOIN /hpf C) UA Amorphus Trace LAB BACUA(LOIN /hpf C) Unknown UA Bacteria Trace Performed By: #### UA, UAMICAO #### [place] [address] US PELVIC Observed: 05/26/2018 Status: F Source: [facility] 4:14 PM [facility] [place]IT[place] [address] Patient: OXANA TANG Phone#: : [phone] Age: 42 Gender: F Pt. Type: ER Account: [id number] Location: [facility] Ordering: DR. REANNA SHIPMAN Exam Date: 05/26/2018/15:04 Family Phys: PIO NARAYANAN Charge Code: 428278 Physician: Esmeralda Order #: [id number] DLP Dose#: PROCEDURE: PELVIC ULTRASOUND, TRANSABDOMINAL COMPARISON: None. INDICATIONS: Left pelvic pain TECHNIQUE: Pelvic ultrasound was performed in the usual manner. FINDINGS: UTERUS: Size is 8.8 x 3.9 x 5.2 cm with unremarkable appearance. Endometrial thickness is 8.2 mm. ADNEXAE: Normal bilateral appearance with no significant masses. Each ovary is normal in size for a patient of this age. Bilateral follicular cysts are present. CUL-DE-SAC: Trace free fluid is present in the cul-de-sac. OTHER: Negative. CONCLUSION: 1. Bilateral follicular cysts are present. There is trace free fluid in the cul-de-sac. Dictated by: Fabiola Walls MD on 05/26/2018 at 16:50 Approved by: Fabiola Walls MD on 05/26/2018 at 16:50 URINE Collected: 05/26/2018 Status: F Source: [facility] 1:29 PM [facility] REPOSITORY TYPE CODE TESTS RESULT OUT OF REFERENCE UNITS RANGE LAB NEGATIVE UR(LOINC) UR NEGATIVE LAB INTERNAL QC(LOINC) INTERNAL QC PASS LAB EXTERNAL QC DONE?(LOINC) EXTERNAL QC YES DONE? Performed By: #### [id number] #### [facility],[address] [place], [place] [id number] URINALYSIS Collected: 05/26/2018 Status: F Source: [facility] 1:28 PM [facility] REPOSITORY TYPE CODE TESTS RESULT OUT OF REFERENCE UNITS RANGE LAB URINALYSIS (LOINC) URINALYSIS Result Comment: URINALYSIS LAB Specimen Type(LOINC) Specimen Void Type LAB Color(LOINC) NORMAL: YELLOW Color p.yel LAB Clarity(LOINC) NORMAL: CLEAR Clarity clear LAB ph(LOINC) NORMAL: 5.0-8.0 ph 7 LAB Protein(LOINC) NORMAL: NEGATIVE Protein NEG LAB Glucose(LOINC) NORMAL: NORMAL Glucose NORM LAB Ketone(LOINC) NORMAL: NEGATIVE Ketone NEG LAB Bilirubin(LOINC) NORMAL: NEGATIVE Bilirubin NEG LAB Blood(LOINC) NORMAL: NEGATIVE Blood NEG LAB Urobilinog(LOINC) NORMAL: NORMAL Urobilinog NORM LAB Sp [place](LOINC) NORMAL: 1.010-1.030 Sp [place] 1.005 Low LAB Nitrite(LOINC) NORMAL: NEGATIVE Nitrite NEG LAB Leukocytes(LOINC) NORMAL: NEGATIVE Leukocytes NEG LAB Microscopic(LOINC ) Microscopic NOT INDICATED Performed By: #### [id number] #### [place] [address] CT KUB (KIDNEY STONE Observed: 05/20/2018 Status: F Source: [facility] PROTOCOL) 5:39 PM [place] [address] Patient: OXANA TANG Phone#: : [phone] Age: 42 Gender: F Pt. Type: ER Account: [id number] Location: [facility] Ordering: DAVID PHAN Exam Date: 05/20/2018/17:31 Family Phys: PIO NARAYANAN Charge Code: 800363 Physician: Esmeralda Order #: [id number] DLP Dose#: PROCEDURE: CT ABDOMEN AND PELVIS WITHOUT CONTRAST COMPARISON: None. INDICATIONS: Left Sided Pain TECHNIQUE: After obtaining the patient's consent, CT images of the abdomen and pelvis were created without non-ionic intravenous contrast material. All CT scans at this facility use dose modulation, iterative reconstruction, and/or weight based dosing when appropriate to reduce radiation dose to as low as reasonably achievable. IV CONTRAST: No IV contrast used,0ml TOTAL DOSE: 6.7 CTDIvol(mGy) FINDINGS: Evaluation of solid organs and soft tissues is limited without intravenous contrast. KIDNEYS: No nephrolithiasis or hydronephrosis. Kidneys are unremarkable in contour. ADRENALS: Normal. No mass or enlargement. URINARY BLADDER: Mild bladder wall thickening, greater than expected for degree of distention. LIVER: Unremarkable in contour. BILIARY: The gallbladder is decompressed. PANCREAS: Unremarkable in contour. SPLEEN: Unremarkable in contour. AORTA/VASCULAR: No aortic aneurysm. There are atherosclerotic calcifications of the aorta. RETROPERITONEUM: Normal. No mass or adenopathy. BOWEL/MESENTERY: No bowel obstruction or dilatation. Moderate diffuse stool throughout the colon. Fatty infiltration in the ascending colonic wall. The appendix is unremarkable. ABDOMINAL WALL: Normal. No mass or hernia. PELVIC NODES: Normal. No adenopathy. PELVIC ORGANS: Uterus is present. The ovaries are lobulated in contour, incompletely characterized on this exam. BONES: Normal. No bony lesion or fracture. Continued Report - Page 2 of 2 Patient: OXANA TANG Phone#: : [phone] Age: 42 Gender: F Pt. Type: ER Account: [id number] Location: [facility] Ordering: DAVID PHAN Exam Date: 05/20/2018/17:31 Family Phys: PIO NARAYANAN Charge Code: [id number] Physician: Esmeralda Order #: [id number] DLP Dose#: LUNG BASES: Normal. No visible pulmonary or pleural disease. OTHER: Genital piercing with streak artifact noted. CONCLUSION: 1. Urinary bladder wall thickening, suspect cystitis. Recommend clinical correlation. 2. No nephrolithiasis or hydronephrosis. 3. Fatty infiltration of the ascending colonic wall. This may represent sequela of inflammatory bowel disease versus incidental finding. 4. Lobulated contour of the ovaries, incompletely characterized on this exam. Consider elective pelvic ultrasound when the patient's acute symptoms have resolved. Dictated by: Xiomara Herzog MD on 05/20/2018 at 18:03 Approved by: Xiomara Herzog MD on 05/20/2018 at 18:03 URINALYSIS Collected: 05/20/2018 Status: F Source: [facility] 5:30 PM [facility] REPOSITORY TYPE CODE TESTS RESULT OUT OF REFERENCE UNITS RANGE LAB URINALYSIS (LOINC) URINALYSIS Result Comment: URINALYSIS LAB Specimen Type(LOINC) Specimen Type UNSPECIFIED LAB Color(LOINC) NORMAL: YELLOW Color p.yel LAB Clarity(LOINC) NORMAL: CLEAR Clarity sl.cloudy LAB ph(LOINC) NORMAL: 5.0-8.0 ph 7 LAB Protein(LOINC) NORMAL: NEGATIVE Protein NEG LAB Glucose(LOINC) NORMAL: NORMAL Glucose NORM LAB Ketone(LOINC) NORMAL: NEGATIVE Ketone NEG LAB Bilirubin(LOINC) NORMAL: NEGATIVE NEG Bilirubin LAB Blood(LOINC) NORMAL: NEGATIVE Blood 10 Abnormal LAB Urobilinog(LOINC NORMAL: ) NORMAL NORM Urobilinog LAB Sp NORMAL: [place](LOINC) 1.010-1.030 Sp 1.010 [place] LAB Nitrite(LOINC) NORMAL: NEGATIVE Nitrite POS LAB Leukocytes(LOINC NORMAL: ) NEGATIVE 500 Abnormal Leukocytes LAB Microscopic(LOIN C) SEE Microscopic BELOW Result Comment: MICROSCOPIC LAB Wbc(LOINC) 0-5/hpf Wbc >50 LAB Rbc(LOINC) 0-3/hpf Rbc NONE LAB Casts(LOINC) Casts NONE LAB Crystals(LOINC) Crystals NONE LAB Amorphous(LOINC) Amorphous NONE LAB Bacteria(LOINC) Bacteria 3+ LAB Epi Cells(LOINC) Epi Cells OCC LAB Mucous(LOINC) Mucous NONE LAB Yeast(LOINC) Yeast NONE Performed By: #### [id number] #### [facility],[address] [place] [address] Observed: 05/20/2018 Status: F Source: [facility] CULTURE URINE 5:30 PM [facility] REPOSITORY CULTURE URINE _URINE CULTURE_ M I C R O B I O L O G Y R E P O R T FINAL Antimicrobial Susceptibility and Organism Identification Report Specimen Number : [id number] Requested : 05/20/18 Specimen Source : URINE Collected : 05/20/18 17:30 [place] [facility] Isolation : Emergency Room Received : 05/20/18 17:30 Requesting Physician : KRUPA VANCE Patient/Specimen Tests and Comments Specimen Comments FINAL REPORT: URINE COLONY COUNT: > THAN 100,000 CFU/CC GRAM NEGATIVE RODS Organisms Identified -------- * 01 Escherichia coli 05/22/18 Comments >100,000 cfu Tech : Source : URINE ID # : [id number] FINAL Report Date : / / : Collected : 05/20/18 17:30 Continued on Next Page M I C R O B I O L O G Y R E P O R T FINAL Antimicrobial Susceptibility and Organism Identification Report Isolate 01 Escherichia coli Escherichia coli DRUG JONATHAN Sys. Urine UNITS --- ----- ----- Amp/Sulbactam 16/8 I I Ampicillin >16 R R Aztreonam <=8 S S Ceftriaxone <=8 S S Ceftazidime <=1 S S Cephalothin 16 I Ciprofloxacin <=1 S S Cefuroxime <=4 S S Ertapenem <=1 S S Nitrofurantoin <=32 S Gentamicin <=4 S S Imipenem <=1 S S Levofloxacin <=2 S S Meropenem <=1 S S Pip/Tazo <=16 S S Piperacillin >64 R R Trimeth/Sulfa <=2/38 S S Tetracycline <=4 S S Tobramycin <=4 S S +, ++, +++, or S = Susceptible N/R = Not Reported Yusuf = Beta Lactamase Positive I = Intermediate CC = Cost Code TFG = Thymidine-dependent Strain R = Resistant JONATHAN = mcg/ml (mg/L) Blank = Data not available, or drug not advisable or tested For Blood and CSF Isolates, a Beta-Lactamase test is recommended for Enterococus species. IB appears in place of S, I (S), +, ++, or +++ with species known to possess inducible B-lactamases; potentially they may become resistant to all B-lactam drugs. Monitoring of patients during/after therapy is recommended. Avoid other/combined B-lactam drugs. (a) Use maximum doses of drug with an aminoglycoside for P. aeruginosa in patients with granulocytopenia or serious infections. (b) Breakpoints based on parenteral dose. For cefuroxime Axetil (PO) use <8=S, 8-16=I, >16=R. (c) For non-enterococcal streptococci, Micrococcus species, and Listeria species, refer to the Ampicillin interpretation. * Interpretations based on approx. adult attainable systemic/urine levels, except drugs with <3 dilutions, which print NCCLS. Doses are guidelines; consider weight and renal/hepatic function. Urine interpretation for lower UTI only. Interpretations based on NCCLS M7-A2. Ticar/K Clav'ate for gram positives based on claims clerk's breakpoints. Tech : Source : URINE ID # : [id number] FINAL Report Date : / / : Collected : 05/20/18 17:30 05/22/18.0707.YASSINEO. 05/21/18.1114.BKO. 05/22/18.0707.BKO.COMPLETE Performed By: #### [id number] #### [place] [address] LACTATE Collected: 05/20/2018 Status: F Source: [facility] 5:14 PM [facility] REPOSITORY TYPE CODE TESTS RESULT OUT OF REFERENCE UNITS RANGE LAB LACTATE(MARÍA ELENA 4.5 - 18.0 mg/dL AK) LACTATE 12.4 Performed By: #### [id number] #### [place] [address] CMP WITH EGFR Collected: 05/20/2018 Status: F Source: [facility] 5:14 PM [facility] REPOSITORY TYPE CODE TESTS RESULT OUT OF RANGE REFERENCE UNITS LAB CMP with eGFR(LOINC) CMP with eGFR Result Comment: COMPREHENSIVE METABOLIC PANEL LAB SODIUM(LOINC) 136 - 145 mmol/l SODIUM 137 LAB POTASSIUM(LOINC) 3.5 - 5.1 mmol/L POTASSIUM 3.7 LAB CHLORIDE(LOINC) 98 - 107 mmol/L CHLORIDE 106 LAB CO2(LOINC) 21.0 - mmol/L 31.0 CO2 24.5 LAB GLUCOSE(LOINC) 74 - 106 mg/dl GLUCOSE High 122 LAB BUN(LOINC) 6 - 20 mg/dl BUN 8 LAB CREATININE(LOINC) 0.6 - 1.2 mg/dl CREATININE 0.8 LAB AST/SGOT(LOINC) 13 - 39 U/L AST/SGOT 18 LAB ALK PHOS(LOINC) 38 - 126 U/L ALK PHOS 50 LAB CALCIUM(LOINC) 8.6 - mg/dl 10.2 CALCIUM 9.4 LAB TOTAL 6.4 - 8.3 g/dl PROTEIN(LOINC) TOTAL PROTEIN 6.9 LAB ALBUMIN(LOINC) 3.4 - 4.8 g/dL ALBUMIN 3.9 LAB GLOBULIN(LOINC) 1.5 - 3.8 G/DL GLOBULIN 3.0 LAB A/G RATIO(LOINC) 0.9 - 1.6 A/G RATIO 1.3 LAB TOTAL BILI(LOINC) 0.0 - 1.5 mg/dl TOTAL BILI 0.2 LAB B/C RATIO(LOINC) 0 - 30 ratio B/C RATIO 10 LAB ALT/SGPT(LOINC) 8 - 35 U/L ALT/SGPT 13 LAB ANION GAP(LOINC) 10 - 20 mmol/L ANION GAP 10 LAB AGE(LOINC) years AGE 42 LAB eGFR(LOINC) 60 - 999 ML/MINUTE eGFR >60 LAB eGFR(AA)(LOINC) 60 - 999 ML/MINUTE eGFR(AA) >60 Result Comment: ACCORDING TO THE NATIONAL KIDNEY DISEASE EDUCATION PROGRAM(NKDE), A NORMAL eGFR IS A VALUE GREATER THAN OR EQUAL TO 60 ML/MIN/1.73 SQ METERS. CHRONIC KIDNEY DISEASE: <60mL/MIN/1.73 SQ METERS KIDNEY FAILURE: <15mL/MIN/1.73 SQ METERS THIS TEST SHOULD ONLY BE USED FOR PATIENTS 18 YEARS OF AGE AND OLDER. Performed By: #### [id number] #### [facility],[address] [place], [place] [address] CBC Collected: 05/20/2018 Status: F [facility] REPOSITORY TYPE CODE TESTS RESULT OUT OF RANGE REFERENCE UNITS LAB CBC(LOINC) CBC Result Comment: CBC-COMPLETE BLOOD COUNT LAB WBC(LOINC) 4.5 - 10.8 x 10EE3/UL WBC 6.7 LAB RBC(LOINC) 4.10 - x 10EE6/UL 5.30 RBC 4.47 LAB HEMOGLOBIN(LOINC) 12.0 - g/dl 16.0 HEMOGLOBIN 13.7 LAB HEMATOCRIT(LOINC) 34.0 - % 46.0 HEMATOCRIT 40.5 LAB MCV(LOINC) 80 - 99 fl MCV 91 LAB MCH(LOINC) 27 - 33 pg MCH 31 LAB MCHC(LOINC) 32 - 36 X10 3 MCHC 34 LAB RDW/CV(LOINC) 12.0 - % 15.6 RDW/CV 14.1 LAB PLATELET(LOINC) 150 - 450 x10EE3/UL PLATELET 215 LAB MPV(LOINC) 6.6 - 10.5 fl MPV 8.1 Result Comment: AUTOMATED DIFFERENTIAL LAB NEUT %(LOINC) 46.0 - 76.0 % NEUT % 65.8 LAB LYMPH %(LOINC) 20.0 - 45.0 % LYMPH % 27.9 LAB MONOS %(LOINC) 0.0 - 10.0 % MONOS % 5.0 LAB EO %(LOINC) 0.0 - 7.0 % EO % 0.6 LAB BASO %(LOINC) 0.0 - 2.0 % BASO % 0.7 LAB Lymph #(LOINC) 0.80 - 2.80 x10EE3/U L Lymph # 1.90 LAB Neut #(LOINC) 1.50 - 7.10 x10EE3/U L Neut # 4.40 LAB [place] #(LOINC) 0.20 - 1.00 x10EE3/U L [place] # 0.30 LAB EO #(LOINC) 0.00 - 0.50 x10EE3/U L EO # 0.00 LAB Baso #(LOINC) 0.00 - 0.10 x10EE3/U L Baso # 0.00 LAB MANUAL DIFF(LOINC) MANUAL DIFF SEE BELOW LAB SEGS(LOINC) 50 - 70 % SEGS 64 LAB LYMPH(LOINC) 20 - 40 % LYMPH 32 LAB MONOS(LOINC) 0 - 8 % MONOS 3 LAB BASO(LOINC) 0.0 - 2.0 % BASO 1.0 LAB CELL COUNT(LOINC) CELL COUNT 100 LAB MORPHOLOGY(LOINC ) MORPHOLOGY NORMAL Result Comment: {CD] Performed By: #### [id number] #### [facility],[address] [place] [address] Observed: 05/20/2018 Status: F Source: [facility] CULTURE BLOOD 5:14 PM [facility] REPOSITORY CULTURE BLOOD CULTURE BLOOD SET: 1 of 24HOUR REPORT NEGATIVE 48HOUR REPORT NEGATIVE 72HOUR REPORT NEGATIVE M I C R O B I O L O G Y R E P O R T FINAL Antimicrobial Susceptibility and Organism Identification Report Specimen Number : [id number] Requested : 05/20/18 Specimen Source : BLOOD Collected : 05/20/18 17:14 [place] of Isolation : Emergency Room Received : 05/20/18 17:14 Requesting Physician : KRUPA VANCE Patient/Specimen Tests and Comments Specimen Comments FINAL REPORT: No Growth at 5 Days Tech : Source : BLOOD ID # : [id number] FINAL Report Date : / / : Collected : 05/20/18 17:14 05/26/18.26.JLN. 05/26/18.625.FRANCOIS.COMPLETE Performed By: #### [id number] #### [facility],[address] [place] [address] EMERGENCY REPORT Observed: 05/20/2018 Status: F Source: [facility] 4:46 PM [facility] EMERGENCY ROOM REPORT NAME ACCOUNT SEX AGE ADMIT DISCHARGE PT MED. RECORD# NUMBER DATE DATE TYPE PIA [id number] F 42 05/20/18 05/20/18 3 OXANA Phillips [id number] ROOM: ER DATE OF : 1975 DICTATING PHYSICIAN: David Phan CHIEF COMPLAINT: Abdominal pain. HISTORY OF PRESENT ILLNESS: The patient states since last night she has had left-sided abdominal pain that seems to be focused to the low abdomen, but radiates a bit to the left flank. Additionally, she has had urinary pressure, somewhat urgency sensation. She feels like she has to go, and when she does go has pain, but is not having significant frequency. She has not had fever or chills, minimal nausea. She has not had fever. She has had some slight chills, mild nausea, but no vomiting. She states that she has noticed that her urine has had a strong odor today. PAST MEDICAL HISTORY: Significant for previous kidney stones, previous kidney infections; otherwise, no significant medical problems. PAST SURGICAL HISTORY: She has had previous tonsillectomy. MEDICATIONS: Per med rec list. ALLERGIES: She is allergic to penicillin and Benadryl. SOCIAL HISTORY: She lives at home. She does smoke. She drinks alcohol occasionally. REVIEW OF SYSTEMS: No recent injury or trauma. No diarrhea. No cough, congestion, or shortness of breath. PHYSICAL EXAMINATION: This is a 42-year-old female alert, appropriate, does not appear toxic or in acute distress. Her skin is pink, warm, and dry. No rashes. HEENT: All normal. Neck is supple without JVD. Lungs are clear without crackles or wheezes. Cardiac exam is regular rhythm without any ectopy, murmurs, gallops, or rubs. Abdomen is soft. She does have some diffuse left-sided abdominal tenderness that seems to be most tender at the left low quadrant. No masses. No guarding or rebound. Bowel sounds are present. She does have some slight left flank pain and tenderness. She moves all extremities appropriately without any focal weaknesses. Good peripheral pulses. Good capillary refill. Vital signs: Temperature 98.4, pulse 86, respirations 16, blood pressure 132/83. Page 1 of 2 OXANA TANG Emergency Room Report DIAGNOSTIC DATA: A number of laboratory studies were obtained, as well as a CT KUB. CT KUB did not show any evidence of any renal system calculi. Laboratory studies showed a CBC that was completely normal with a normal white count and differential. Her lactate was normal. CMP was normal. Urinalysis was positive for nitrites. It showed greater than 50 WBCs and 3+ bacteria. Urine culture was obtained. EMERGENCY DEPARTMENT COURSE AND TREATMENT: Her O2 saturation is 98%. She had an IV of normal saline placed. She was given a liter of IV fluids. She was given some Dilaudid, Toradol, and Zofran, which did help with her pain and nausea. She was given some Rocephin IV. DIAGNOSIS: Urinary tract infection with abdominal pain. PLAN/DISPOSITION: She will be discharged with a prescription for Bactrim. I did give her some Percocet for pain for a day or 2, a slip for work for tomorrow. She is to return if her symptoms worsen, follow up with her family doctor in 2 to 3 days if not better. Dictated By: David Phan MD 05/20/18 18:57 JOB #: [id number] Transcribed By: am 05/20/18 19:25 Electronically signed by: VANESSA Phan M.D. 05/29/18 07:13 Page 2 of 2 [facility] Emergency Room Report CBC-COMPLETE BLOOD CNT Collected: 05/07/2018 Status: F Source: [place] NO DIFF 11:07 AM [facility] REPOSITORY TYPE CODE TESTS RESULT OUT OF RANGE REFERENCE UNITS LAB L100.1000 4.4-11.0 K/mm3 Low WBC 4.3 LAB L100.1200 4.2-5.4 M/mm3 Normal RBC 4.34 LAB L100.1300 12.0-15.0 g/dl Normal HGB 13.4 LAB L100.1400 37-47 % Normal HCT 39.5 LAB L100.1500 81-99 fL Normal MCV 91.0 LAB L100.1600 27.0-32.0 pg Normal MCH 30.9 LAB L100.1700 32-36 g/gl Normal MCHC 33.9 LAB L100.1810 11.6-14.6 % Normal RDW CV 13.8 LAB L100.1820 35.1-43.9 fl High RDW SD 45.5 LAB L100.1900 150-450 K/mm3 Normal PLT 224 LAB L100.2000 6.2-12.0 fl Normal MPV 10.1 Performed By: #### L100.0500 #### [facility] [address] [place], [place], [id number] PROTHROMBIN TIME W/INR Collected: 05/07/2018 Status: F Source: [place] 11:07 AM [facility] REPOSITORY TYPE CODE TESTS RESULT OUT OF RANGE REFERENCE UNITS LAB L300.4150 11.7-14.9 SECONDS Normal PROTIME 13.4 LAB L300.4200 Normal INR 1.0 Performed By: #### L300.3900, L300.4310 #### [facility] [address] [place], [place], [address] PARTIAL THROMBOPLAST Collected: 05/07/2018 Status: F Source: [place] TIME 11:07 AM [facility] REPOSITORY TYPE CODE TESTS RESULT OUT OF RANGE REFERENCE UNITS LAB L300.4310 24.1-36.2 Seconds Normal PTT 32.0 Performed By: #### L300.3900, L300.4310 #### [facility] [address] [place], [address] HCG TITER QUANT., Collected: 05/07/2018 Status: F Source: [place] SERUM 11:07 AM [facility] REPOSITORY TYPE CODE TESTS RESULT OUT OF RANGE REFERENCE UNITS LAB L700.8000 <9 non-preg mIU/mL Normal HCG < 1 QUANT. Performed By: #### L700.8000 #### [facility] [address] [place], [address] TYPE AND SCREEN Collected: 05/07/2018 Status: F Source: [place] 11:07 AM [facility] REPOSITORY Order Comment: Surgery Date: 05/08/18 Hx of Preganancy in last 3 Months No Ever experience any problems with transfusion(s)? N Hx of Transfusion in last 3 Months N Reason for Type AND Screen/Red Cells: SURGERY SURGICAL PROCEDURE: 97500 TYPE CODE TESTS RESULT OUT OF RANGE REFERENCE UNITS LAB B10.0800 A Normal BLOOD TYPE GEL POSITIVE LAB B100.4000 Normal Antibody NEGATIVE Screen Performed By: #### B101.7475 #### [facility] [address] [place], [address] US TRANSVAGINAL NON-OB Observed: 05/05/2018 Status: F Source: [facility] 2:19 PM [facility] REPOSITORY Exam Date/Time: 05/05/2018 14:47 EST Reason for Exam: Pelvic pain Report STUDY: US Transvaginal Non-OB; 05/05/2018 2:47 pm INDICATION: Pelvic pain. Left-sided abdominal pain. COMPARISON: CT abdomen/pelvis 05/05/2018 ACCESSION NUMBER(S): [id number] ORDERING CLINICIAN: Jing Camarena TECHNIQUE: Transvaginal sonographic images of the pelvis. Spectral Doppler imaging. FINDINGS: UTERUS: The uterus has a homogeneous echotexture, is anteverted, and measures 8.4 x 4.7 x 4.9 cm. ENDOMETRIUM: The endometrium measures 1.1 cm in thickness. CERVIX: Closed. OVARIES: The right ovary was not seen due to gas obscuration, although appeared normal on CT of same day, containing several follicles, some which could represent a corpus luteum. The left ovary measures 3.7 x 2.6 x 3.3 cm and contains a dominant follicle, appearing within normal sonographic limits. The left ovary demonstrated normal arterial and venous color and spectral Doppler flow. No adnexal mass is seen. CUL-DE-SAC: No free fluid. IMPRESSION: Endometrial thickness of 1.1 cm, which is within normal limits for premenopausal status and abnormal for postmenopausal status. Clinical correlation and appropriate follow-up recommended. Exam Date/Time: 05/05/2018 14:47 EST Report Nonvisualized right ovary due to bowel gas, though had a normal appearance on same day CT. Normal left ovary. FINAL REPORT Dictated: 05/05/2018 4:22 pm Salbador Granados MD Signed (Electronic Signature): 05/05/2018 4:22 pm Signed by: Salbador Granados MD Technologist: BLANQUITA CT ABDOMEN/PELVIS W/ Observed: 05/05/2018 Status: F Source: [facility] CONTRAST 12:10 PM [facility] REPOSITORY Exam Date/Time: 05/05/2018 12:36 EST Reason for Exam: Abdominal Pain;Other (please specify) Report STUDY: CT Abdomen/Pelvis w/ Contrast; 05/05/2018 12:36 pm INDICATION: Left abdominal pain, nausea, and vomiting. COMPARISON: None. ACCESSION NUMBER(S): [id number] ORDERING CLINICIAN: Jing Camarena TECHNIQUE: CT of the abdomen was performed. 100 ml of contrast material Omnipaque 350 were administered intravenously without immediate complication. FINDINGS: LOWER CHEST: The visualized lung bases are unremarkable. ABDOMEN: LIVER: Normal morphology. Subcentimeter low attenuated lesion in the right hepatic lobe, too small to characterize. BILE DUCTS: No intra or extrahepatic biliary ductal dilation. GALLBLADDER: No cholelithiasis, gallbladder wall thickening, or pericholecystic inflammatory changes. PANCREAS: No mass or ductal dilation. SPLEEN: No splenomegaly or mass. ADRENAL GLANDS: No mass or nodule. KIDNEYS AND URETERS: No calculus or hydronephrosis. Exam Date/Time: 05/05/2018 12:36 EST Report BOWEL: No bowel wall thickening or dilation. The appendix is normal. VESSELS: Arterial calcifications with no aneurysmal dilation of the abdominal aorta or iliac arteries. The hepatic veins, portal veins, splenic vein, and SMV are patent. The celiac trunk and proximal SMA are patent. PERITONEUM/RETROPERITONEUM/LYMPH NODES: No ascites or organized fluid collection. No lymphadenopathy by CT size criteria. The uterus appears heterogeneous in appearance with hypodense material within the endometrium, likely fluid/blood. Hypodense lesions within the bilateral ovaries, the largest measures 2.0 cm in the left ovary. ABDOMINAL WALL: Unremarkable. BONES: Indeterminate age fracture to the left L3 and right L4 transverse processes. Otherwise, no suspicious osseous lesion. IMPRESSION: 1. Heterogeneous uterus with hypodense material within the endometrium which could be fluid/ blood. Correlate with menstrual cycle. If clinically indicated further evaluation with pelvic ultrasound may be beneficial. 2. Hypodense lesions within the bilateral ovaries, likely cysts/follicles. This can be evaluated on recommended pelvic ultrasound. 3. Indeterminate age fracture to the left L3 and right L4 transverse processes. Correlate clinically. 4. No CT evidence of acute cholecystitis, pancreatitis, or appendicitis. 5. No bowel obstruction. FINAL REPORT Dictated: 05/05/2018 1:24 pm Andrea Christian MD Signed (Electronic Signature): 05/05/2018 1:24 pm Signed by: Andrea Christian MD Technologist: PARMINDER CBC W/ AUTO DIFF Collected: 05/05/2018 Status: F Source: [facility] 11:40 AM [facility] REPOSITORY TYPE CODE TESTS RESULT OUT OF RANGE REFERENCE UNITS LAB 23160222(L 3.6-11.0 E3/mcL OINC) Normal WBC 4.7 LAB 15186097(L 3.90-5.40 E6/mcL OINC) Normal RBC 4.78 LAB 73753042(L 12.0-16.0 G/DL OINC) Normal Hgb 14.7 LAB 11318648(L 36.0-48.0 % OINC) Normal Hct 44.1 LAB 87429034(L 11.5-14.5 % OINC) Normal RDW 14.0 LAB 87798382(L 27.0-31.0 pg OINC) Normal MCH 30.7 LAB 46204296(L 33.0-37.0 G/DL OINC) Normal MCHC 33.2 LAB 79178215(L 78.0-100.0 fL OINC) Normal MCV 92.3 LAB 37238314(L 7.4-11.0 fL OINC) Normal MPV 8.2 LAB 49216439(L 130-400 E3/mcL OINC) Normal Platelet 219 Performed By: #### [id number] #### [facility] [address] [id number] AUTO DIFF Collected: 05/05/2018 Status: F Source: [facility] 11:40 AM [facility] REPOSITORY Order Comment: Order Added by Discern Expert. TYPE CODE TESTS RESULT OUT OF RANGE REFERENCE UNITS LAB 82798458(L 37.0-75.0 % OINC) Normal Neutro Auto 65.2 LAB 37205730(L 20.0-55.0 % OINC) Normal Lymph Auto 28.1 LAB 07756602(L 0.0-10.0 % OINC) Normal [place] Auto 5.2 LAB 67944309(L 0.0-11.0 % OINC) Normal Eos Auto 0.8 LAB 90826697(L 0.0-2.0 % OINC) Normal Basophil Auto 0.7 LAB 03105537(L 1.4-6.5 E3/mcL OINC) Normal Neutro 3.1 Absolute LAB 43490340(L 1.2-3.4 E3/mcL OINC) Normal Lymph Absolute 1.3 LAB 90222981(L 0.0-0.7 E3/mcL OINC) Normal [place] Absolute 0.2 LAB 35420464(L 0.0-0.7 E3/mcL OINC) Normal Eos Absolute 0.0 LAB 72033815(L 0.0-0.2 E3/mcL OINC) Normal Basophil 0.0 Absolute Performed By: #### [id number] #### [facility] [address] [place] [address] BMP Collected: 05/05/2018 Status: F Source: [facility] 11:40 AM [facility] REPOSITORY TYPE CODE TESTS RESULT OUT OF RANGE REFERENCE UNITS LAB 02139618(L 10-20 mEq/L OINC) Low AGAP 7 LAB 48493767(L 70-99 mg/dL OINC) Glucose Normal Lvl 89 LAB 13734595(L 6-23 mg/dL OINC) BUN Normal 6 LAB 1143587(LO 0.5-1.1 mg/dL INC) Normal Creatinine 0.7 LAB 22105704(L 5.4-30.0 ratio OINC) Normal BUN/Creat Ratio 8.6 LAB 41314841(L 8.6-10.3 mg/dL OINC) Calcium Normal Lvl 9.4 LAB 46302807(L 136-145 mEq/L OINC) Sodium Normal Lvl 136 LAB 45905343(L 3.5-5.3 mEq/L OINC) Normal Potassium Lvl 3.9 LAB 13908758(L 98-107 mEq/L OINC) Chloride Normal 106 LAB 89609240(L 21.0-32.0 mEq/L OINC) CO2 Normal 27.0 Performed By: #### [id number] #### [facility] [employer] [facility] [place] [address] EGFR Collected: 05/05/2018 Status: F Source: [facility] 11:40 AM [facility] REPOSITORY Order Comment: Order added by Discern Expert. TYPE CODE TESTS RESULT OUT OF RANGE REFERENCE UNITS LAB 78280909(LO mL/min/1.73 INC) m2 Normal eGFR >60 LAB 76460418(LO mL/min/1.73 INC) m2 Normal eGFR AA >60 Performed By: #### [id number] #### [facility] [employer] [address] [place] [address] HEP FUNC PANEL Collected: 05/05/2018 Status: F Source: [facility] 11:40 AM [facility] REPOSITORY TYPE CODE TESTS RESULT OUT OF RANGE REFERENCE UNITS LAB 77478782(L 7-45 Int._Unit/L OINC) Normal ALT 11 LAB 28667625(L 9-39 Int._Unit/L OINC) Normal AST 16 LAB 75694548(L 3.4-5.0 gm/dL OINC) Normal Albumin Lvl 4.2 LAB 87882888(L 2.0-4.0 G/DL OINC) Normal Globulin 3.0 LAB 69168029(L 1.1-1.9 ratio OINC) Normal A/G Ratio 1.4 LAB 51409058(L 33-110 Int._Unit/L OINC) Normal Alk Phos 57 LAB 27508551(L 0.00-0.30 mg/dL OINC) Normal Bili Direct 0.09 LAB 28094072(L OINC) Normal Bili Indirect 0.4 Result Comment: No established ranges available for the Indirect Biliruben. LAB 58429635(LOINC) 0.0-1.2 mg/dL Normal Bili Total 0.5 LAB 39936073(LOINC) 6.4-8.2 gm/dL Normal Total Protein 7.2 Performed By: #### [id number] #### [facility] [employer] [address] [place] [address] LIPASE LEVEL Collected: 05/05/2018 Status: F Source: [facility] 11:40 AM [facility] REPOSITORY TYPE CODE TESTS RESULT OUT OF RANGE REFERENCE UNITS LAB 60187102(LO 9-82 Int._Unit/L INC) Normal Lipase Lvl 12 Performed By: #### [id number] #### [facility] [employer] [address] [place] [address] U BHCG QLT Collected: 05/05/2018 Status: F Source: [facility] 11:09 AM [facility] REPOSITORY TYPE CODE TESTS RESULT OUT OF RANGE REFERENCE UNITS LAB 6608926(MARÍA ELENA Neg NC) Normal U beta Neg hCG Ql Performed By: #### [id number] #### [facility] Urinalysis Manual Subsection [address] [place] [address] UA COMPLETE Collected: 05/05/2018 Status: F Source: [facility] 11:09 AM [facility] REPOSITORY TYPE CODE TESTS RESULT OUT OF RANGE REFERENCE UNITS LAB 21592963( Yellow LOINC) Normal UA Color Yellow LAB 81627136( Clear LOINC) UA Clarity Abnormal Cloudy LAB 65980224( Negative LOINC) Normal UA Glucose Negative LAB 89303284( Negative LOINC) Normal UA Bili Negative LAB 20126197( Negative LOINC) Normal UA Ketones Negative LAB 05578146( 1.003-1.030 LOINC) Normal UA Spec Grav 1.005 LAB 33273221( 4.6-8.0 LOINC) Normal UA pH 7.0 LAB 12916816( Negative LOINC) Normal UA Protein Negative LAB 01137592( mg/dL LOINC) Normal UA Urobilinogen Negative Result Comment: Due to a manufacturing issue, low positive urobilinogen results may be fasely positive. Correlate with urine bilirubin and additional clinical/laboratory findings to assess the risk of hemolytic anemia or liver disease. If clinically indicated, repeat testing with an alternate method is available by contacting the laboratory within 24 hours. LAB 87375314(LOINC) Negative Normal UA Nitrite Negative LAB 15390898(LOINC) Negative Normal UA Blood Negative LAB 31357055(LOINC) Negative Normal UA Leuk Est Negative LAB 74379550(LOINC) 0-3 /HPF UA Abnormal RBC 3-5 LAB 28984739(LOINC) 0-5 /HPF Normal UA WBC 0-5 LAB 45169172(LOINC) 0-5 /HPF UA Abnormal Squam 10-20 Epithelial LAB 19160526(LOINC) None /HPF UA Abnormal Bacteria 1+ LAB 67784858(LOINC) Trace /LPF UA Abnormal Mucous Trace Performed By: #### [id number] #### EVE Urinalysis Automated Subsection [facility] [place] [address] Observed: 05/05/2018 Status: F Source: [facility] C URINE 11:09 AM [facility] REPOSITORY Final Report: Light growth of Normal skin kierra isolated Performed By: #### [id number] #### [facility] Microbiology Subsection [address] [place] [address] CT ABDOMEN/PELVIS W/O Observed: 04/23/2018 Status: F Source: [place] CONTRAST 4:05 PM [facility] REPOSITORY ORIGINAL CT ABDOMEN/PELVIS W/O CONTRAST CLINICAL STATEMENT: BILATERAL flank pain, LEFT flank pain COMPARISON: None TECHNIQUE: Axial images were obtained from the lung bases through the pubic symphysis. Coronal reformatted images were generated from the axial dataset. This exam was performed according to our [facility] dose optimization program, and includes the following measures where applicable: automated exposure control, adjustment of the mAs and/or kVp according to patient size and/or exam, and an iterative reconstruction algorithm. FINDINGS: The kidneys are symmetric in size and are without calculi, hydronephrosis, or perinephric stranding. The ureters are normal. No bladder calculi are visible. The visualized liver and spleen are unremarkable for noncontrast examination. The noncontrasted gallbladder, pancreas and adrenal glands are normal. The small and large bowel are normal in course and caliber. The appendix is normal. There is no free fluid or free air. No adenopathy is identified. There are no suspicious osseous lesions. The uterus is present. There is a 3 cm cyst within the LEFT ovary. IMPRESSION: No urinary tract calculi. No hydronephrosis. 3 cm benign cyst within the LEFT ovary. No follow-up is necessary. I have personally reviewed the images of this examination and agree with the resident's findings and interpretation. Interpreted By: Marcie Church MD Preliminary Report By: Naya Taylor MD Electronically Signed By: Marcie Church MD Dictated Date: 04/23/2018 4:17:28 PM Prelim Date: 04/23/2018 4:25:42 PM Sign Date: 04/23/2018 4:33:51 PM UA Collected: 04/23/2018 Status: F Source: [facility] 3:42 PM [facility] REPOSITORY TYPE CODE TESTS RESULT OUT OF RANGE REFERENCE UNITS LAB SPCUA(MARÍA ELENA NC) UA Specimen Type Clean Catch LAB CLRUA(MARÍA ELENA NC) UA Color Yellow LAB APPUA(MARÍA ELENA Clear NC) UA Appear Unknown Slightly Cloudy LAB SGUA(LOIN C) UA Spec Unknown Grav 1.005 LAB GLUA(LOIN Negative mg/dL C) UA Glucose Negative LAB BILUA(MARÍA ELENA Negative NC) UA Bili Negative LAB KETUA(MARÍA ELENA Negative mg/dL NC) UA Ketones Negative LAB BLDUA(MARÍA ELENA Negative NC) UA Blood Negative LAB PHUA(LOIN C) UA pH 8.0 LAB PROUA(MARÍA ELENA Negative mg/dL NC) UA Protein Negative LAB UROUA(MARÍA ELENA E.U./dL NC) UA Urobilinogen 0.2 LAB NITUA(MARÍA ELENA Negative NC) UA Nitrite Negative LAB LEUUA(MARÍA ELENA Negative NC) UA Leuk Est Negative Performed By: #### UA, PREGU, UAMICAO #### [address] [place], [place] [address] PREGU Collected: 04/23/2018 Status: F Source: [facility] 3:42 PM [facility] REPOSITORY TYPE CODE TESTS RESULT OUT OF RANGE REFERENCE UNITS LAB PREGU(LOIN C) Test Negative Urine LAB PRUG1(LOIN C) Unknown test HCG not (u) int detected. Performed By: #### UA, PREGU, UAMICAO #### [address] [place], [place] [address] .URINALYSIS MICROSCOPIC Collected: 04/23/2018 Status: F Source: [place] (AO) 3:42 PM [facility] REPOSITORY TYPE CODE TESTS RESULT OUT OF RANGE REFERENCE UNITS LAB WBCUA(LOIN None Seen /hpf C) UA WBC None Seen LAB RBCUA(LOIN None Seen /hpf C) UA RBC None Seen LAB EPIUA(LOIN None Seen /hpf C) Unknown UA Squam Epithelial 5-10 LAB BACUA(LOIN /hpf C) Unknown UA Bacteria Trace Performed By: #### UA, PREGU, UAMICAO #### [place] [address] [place], [place] [address] Observed: 04/23/2018 Status: F Source: [facility] 3:42 PM [facility] REPOSITORY . MICRO - Microbiology PROCEDURE: Urine Culture [*1] SOURCE: Urine, Clean Catch BODY SITE: COLLECTED DATE/TIME: 04/23/2018 15:42 EST RECEIVED DATE/TIME: 04/23/2018 21:42 EST START DATE/TIME: 04/23/2018 21:43 EST FREE TEXT SOURCE: FINAL REPORTS Final Report [] Verified Date/Time/Personnel: 04/25/2018 06:51 EST >100,000 organisms per mL Mixed without predominant isolate(s). Sensitivity Testing not indicated. Probably contamination. Repeat culture suggested. PRELIMINARY REPORTS Preliminary Report [] Verified Date/Time/Personnel: 04/24/2018 14:30 EST Culture results pending. Performing Locations *1: This test was performed at: [facility], [address] [place] [address], [address] [place] [address] Performed By: #### CUR #### [place] [address] CNCO Observed: 04/17/2018 Status: COMPLETED Source: [place] 12:00 AM [facility] [place] REPOSITORY Letter Text Department of Family Medicine [facility] [address] 04/17/2018 Oxana Tang [address] [address] Dear Oxana, We missed you at your last appointment with Lemuel Pereira MD on 04/17/18 at 04:00 pm. Please call our office at between the hours of 8:00 a.m. and 5:00 p.m. to reschedule or to inform us if this information is in error. It is important to know if you cannot keep an appointment so that the time is available for another person. We request that you cancel 24 hours in advance. If cancellation is necessary after that, please call as soon as possible. We appreciate your confidence in choosing the [facility] Medicine Department for your medical care and we look forward to seeing you at your next appointment. CCF #: [id number] Sincerely, Department of Family Medicine [facility] CBC Collected: 03/26/2018 Status: F Source: [place] [facility] 11:29 AM [facility] REPOSITORY TYPE CODE TESTS RESULT OUT OF RANGE REFERENCE UNITS LAB CBC(LOINC) CBC Result Comment: CBC-COMPLETE BLOOD COUNT LAB WBC(LOINC) 4.5 - 10.8 x 10EE3/UL WBC 7.6 LAB RBC(LOINC) 4.10 - x 10EE6/UL 5.30 RBC 4.98 LAB HEMOGLOBIN(LOINC 12.0 - g/dl ) 16.0 HEMOGLOBIN 15.2 LAB HEMATOCRIT(LOINC 34.0 - % ) 46.0 HEMATOCRIT 44.9 LAB MCV(LOINC) 80 - 99 fl MCV 90 LAB MCH(LOINC) 27 - 33 pg MCH 31 LAB MCHC(LOINC) 32 - 36 X10 3 MCHC 34 LAB RDW/CV(LOINC) 12.0 - % 15.6 RDW/CV High 15.7 LAB PLATELET(LOINC) 150 - 450 x10EE3/UL PLATELET 268 LAB MPV(LOINC) 6.6 - 10.5 fl MPV 9.4 Result Comment: AUTOMATED DIFFERENTIAL LAB NEUT %(LOINC) 46.0 - 76.0 % NEUT % 73.3 LAB LYMPH %(LOINC) 20.0 - 45.0 % LYMPH % 20.3 LAB MONOS %(LOINC) 0.0 - 10.0 % MONOS % 3.7 LAB EO %(LOINC) 0.0 - 7.0 % EO % 1.2 LAB BASO %(LOINC) 0.0 - 2.0 % BASO % 1.5 LAB Lymph #(LOINC) 0.80 - 2.80 x10EE3/U L Lymph # 1.60 LAB Neut #(LOINC) 1.50 - 7.10 x10EE3/U L Neut # 5.60 LAB [place] #(LOINC) 0.20 - 1.00 x10EE3/U L [place] # 0.30 LAB EO #(LOINC) 0.00 - 0.50 x10EE3/U L EO # 0.10 LAB Baso #(LOINC) 0.00 - 0.10 x10EE3/U L Baso # 0.10 LAB MANUAL DIFF(LOINC) MANUAL DIFF N/A LAB MORPHOLOGY(LOINC ) MORPHOLOGY N/A Result Comment: {CD] Performed By: #### [id number] #### [address] [address] VITAMIN D, 25 Collected: 03/26/2018 Status: F Source: [facility] 11:29 AM [facility] REPOSITORY TYPE CODE TESTS RESULT OUT OF RANGE REFERENCE UNITS LAB VitD(LOINC) 30.00 - 100 ng/mL VitD 69.03 Result Comment: 25-OHD3 indicates both endogenous production and supplementation. 25-OHD2 is an indicator of exogenous sources, such as diet or supplementation. Therapy is based on measurement of Total 25-OHD, with levels <20 ng/mL indicative of Vitamin D deficiency, while levels between 20 ng/mL and 30 ng/mL suggest insufficiency. Optimal levels are >=30ng/mL. Vitamin D, 25-OH D3 Not Established Vitamin D, 25-OH D2 Not Established Performed By: #### [id number] #### [address] [address] LIPID PROFILE Collected: 03/26/2018 Status: F Source: [facility] 11:29 [facility] REPOSITORY TYPE CODE TESTS RESULT OUT OF REFERENCE UNITS RANGE LAB LIPID PROFILE(LOIN C) LIPID PROFILE Result Comment: LIPID PROFILE LAB TRIGLYCERIDE(LOINC) 0 - 150 mg/dl TRIGLYCERIDE 119 LAB CHOLESTEROL(LOINC) 0 - 200 mg/dl CHOLESTEROL High 278 LAB HDL(LOINC) 40 - 60 mg/dl HDL 41 LAB CHOL/HDL(LOINC) 0.0 - 5.0 CHOL/HDL High 6.8 LAB LDL(LOINC) 0 - 129 mg/dl LDL High 213 Performed By: #### [id number] #### [facility],[address] [place] [address] CMP WITH EGFR Collected: 03/26/2018 Status: F Source: [facility] 11:29 AM [facility] REPOSITORY TYPE CODE TESTS RESULT OUT OF RANGE REFERENCE UNITS LAB CMP with eGFR(LOINC) CMP with eGFR Result Comment: COMPREHENSIVE METABOLIC PANEL LAB SODIUM(LOINC) 136 - 145 mmol/l SODIUM Low 134 LAB POTASSIUM(LOINC) 3.5 - 5.1 mmol/L POTASSIUM 4.2 LAB CHLORIDE(LOINC) 98 - 107 mmol/L CHLORIDE 100 LAB CO2(LOINC) 21.0 - mmol/L 31.0 CO2 26.5 LAB GLUCOSE(LOINC) 74 - 106 mg/dl GLUCOSE 86 LAB BUN(LOINC) 6 - 20 mg/dl BUN Low 5 LAB CREATININE(LOINC) 0.6 - 1.2 mg/dl CREATININE 0.8 LAB AST/SGOT(LOINC) 13 - 39 U/L AST/SGOT 28 LAB ALK PHOS(LOINC) 38 - 126 U/L ALK PHOS 60 LAB CALCIUM(LOINC) 8.6 - mg/dl 10.2 CALCIUM 10.1 LAB TOTAL PROTEIN(LOINC) 6.4 - 8.3 g/dl TOTAL PROTEIN 7.9 LAB ALBUMIN(LOINC) 3.4 - 4.8 g/dL ALBUMIN 4.7 LAB GLOBULIN(LOINC) 1.5 - 3.8 G/DL GLOBULIN 3.2 LAB A/G RATIO(LOINC) 0.9 - 1.6 A/G RATIO 1.5 LAB TOTAL BILI(LOINC) 0.0 - 1.5 mg/dl TOTAL BILI 0.5 LAB B/C RATIO(LOINC) 0 - 30 ratio B/C RATIO 6 LAB ALT/SGPT(LOINC) 8 - 35 U/L ALT/SGPT 28 LAB ANION GAP(LOINC) 10 - 20 mmol/L ANION GAP 12 LAB AGE(LOINC) years AGE 42 LAB eGFR(LOINC) 60 - 999 ML/MINUTE eGFR >60 LAB eGFR(AA)(LOINC) 60 - 999 ML/MINUTE eGFR(AA) >60 Result Comment: ACCORDING TO THE NATIONAL KIDNEY DISEASE EDUCATION PROGRAM(NKDE), A NORMAL eGFR IS A VALUE GREATER THAN OR EQUAL TO 60 ML/MIN/1.73 SQ METERS. CHRONIC KIDNEY DISEASE: <60mL/MIN/1.73 SQ METERS KIDNEY FAILURE: <15mL/MIN/1.73 SQ METERS THIS TEST SHOULD ONLY BE USED FOR PATIENTS 18 YEARS OF AGE AND OLDER. Performed By: #### [id number] #### [place] [address] TSH Collected: 03/26/2018 Status: F Source: [facility] 11:29 AM [facility] REPOSITORY TYPE CODE TESTS RESULT OUT OF RANGE REFERENCE UNITS LAB TSH(LOINC) 0.34 - 5.60 uIU/ml TSH 0.83 Performed By: #### [id number] #### [place] [address] T4-FREE (FREE Collected: 03/26/2018 Status: F Source: [facility] THYROXINE) 11:29 AM [facility] REPOSITORY TYPE CODE TESTS RESULT OUT OF RANGE REFERENCE UNITS LAB T4 0.61 - 1.12 ng/dl FREE(LOINC) T4 FREE 0.77 Result Comment: *SPECIMENS FROM PATIENTS WHO ARE UNDERGOING BIOTIN THERAPY AND/OR INGESTING BIOTIN SUPPLEMENTS MAY HAVE FALSE HIGH RESULTS. Performed By: #### [id number] #### [id number] COMP METABOLIC PANEL Collected: 03/20/2018 Status: F Source: [place] 11:51 AM [facility] [place] REPOSITORY TYPE CODE TESTS RESULT OUT OF REFERENCE UNITS RANGE LAB TP 6.3-8.0 g/dL Protein, Total 7.4 LAB ALB 3.9-4.9 g/dL Albumin 4.3 LAB CA 8.5-10.2 mg/dL Calcium, Total 9.5 LAB TBIL 0.2-1.3 mg/dL Low Bilirubin, Total <0.2 LAB ALKP 34-123 U/L Alkaline Phosphatase 63 LAB AST 13-35 U/L AST 25 LAB GLU 74-99 mg/dL Low Glucose 56 Result Comment: The [place] Diabetes Association (ADA) provides guidance for cutoff values for fasting glucose and random glucose. The ADA defines fasting as no caloric intake for at least 8 hours. Fas ting plasma glucose results between 100 to 125 mg/dL indicate increased risk for diabetes (prediabetes). Fasting plasma glucose results greater than or equal to 126 mg/dL meet the criteria for diagnosis of diabetes. In the absence of unequivocal hyperglycemia, results should be confirmed by repeat testing. In a patient with classic symptoms of hyperglycemia or hyperglycemic crisis, random plasma glucose results greater than or equal to 200 mg/dL meet the criteria for diagnosis of diabetes. Reference: Standards of Medical Care in Diabetes 2016, [place] Diabetes Association. Diabetes Care. 2016.39(Suppl 1). LAB BUN 7-21 mg/dL BUN Low 5 LAB CRET 0.58-0.96 mg/dL Creatinine 0.76 LAB NA 136-144 mmol/L Sodium 137 LAB K 3.7-5.1 mmol/L Potassium 3.7 LAB CL 97-105 mmol/L Chloride 100 LAB CO2 22-30 mmol/L CO2 24 LAB AGAP 9-18 mmol/L Anion Gap 13 LAB ALT 7-38 U/L ALT 18 LAB GFRAA eGFR- Amer. >60 LAB GFRNAA . eGFR-All Other Races >60 Result Comment: eGFR (Estimated GFR) Units of measure: mL/min/1.73 meters squared eGFR is derived from the reexpressed MDRD Study equation using the following parameters: serum creatinine, age, gender and race. The creatinine assay has been calibrated to be traceable to IDMS. An eGFR <60 mL/min/1.73m2 for >3 months is consistent with chronic kidney disease. Refer to KDOQI guidelines for clinical interpretation. In patients with unstable renal function, e.g. those with acute kidney injury, the eGFR may not accurately reflect actual GFR. Performed By: #### CMP, LIPNF, TSH, T4FTI, HBA1C #### [facility] [address] [place], [place] [address] LIPID PANEL, NONFAST Collected: 03/20/2018 Status: F Source: [place] 11:51 AM [facility] REPOSITORY TYPE CODE TESTS RESULT OUT OF REFERENCE UNITS RANGE LAB CHOLNF <200 mg/dL Total High Cholesterol NF 214 Result Comment: <200 mg/dL, Desirable 200-239 mg/dL, Borderline high >239 mg/dL, High LAB TRIGNF <150 mg/dL Triglycerides, NF 120 Result Comment: <150 mg/dL, Normal 150-199 mg/dL, Borderline high 200-499 mg/dL, High >499 mg/dL, Very high LAB HDLNF >39 mg/dL HDL Cholesterol, NF Low 37 Result Comment: 40-59 mg/dL, Acceptable >59 mg/dL, High: Negative risk factor for coronary heart disease <40 mg/dL, Low: Positive risk factor for coronary heart disease LAB LDLNF <100 mg/dL LDL Cholesterol, High NF 153 Result Comment: <100 mg/dL, Optimal 100-129 mg/dL, Near optimal/above optimal 130-159 mg/dL, Borderline high 160-189 mg/dL, High >189 mg/dL, Very high Secondary prevention optimal LDL Cholesterol levels are recommended to be < 70 mg/dL LAB NOHDLN <130 mg/dL High Non HDL Chol, 177 NF Result Comment: <130 mg/dL, Optimal 130-159 mg/dL, Near optimal/above optimal 160-189 mg/dL, Borderline high 190-219 mg/dL, High >219 mg/dL, Very high Secondary prevention optimal non HDL Cholesterol levels are recommended to be < 100 mg/dL LAB VLDLNF <30 mg/dL VLDL Cholesterol, NF 24 LAB TCHDLN <5.10 mg/dL T Chol/HDL Ratio High NF 5.78 LAB LDLHDN <2.54 mg/dL LDL/HDL Ratio, NF High 4.14 Result Comment: Reference: 1. National Cholesterol Education Program ATP III Guideline At-A-Glance Quick Desk Reference: National Heart, Lung, and Blood [place]. National Institutes of Health. 2001: NIH Publication No. 01-3305. 2. An International Atherosclerosis Society position paper: global recommendations for the management of dyslipidemia: executive summary, Atherosclerosis. 2014: 232(2):410-413. Performed By: #### CMP, LIPNF, TSH, T4FTI, HBA1C #### [facility] [address] [place], [place] [address] TSH Collected: 03/20/2018 Status: F Source: [place] 11:51 AM [facility] REPOSITORY TYPE CODE TESTS RESULT OUT OF RANGE REFERENCE UNITS LAB TSH 0.400-5.500 uU/mL TSH 1.270 Result Comment: If the patient is , TSH reference range varies by gestational period: First Trimester 0.100-2.500 uU/mL Second Trimester 0.200-3.000 uU/mL Third Trimester 0.300-3.000 uU/mL References: 1. Rios, Martha M, Kwadwo EK, et al. Management of Thyroid Dysfunction during and : An Endocrine Society Clinical Practice Guideline. J Clin Endocrinol Metab, 2012:97:6897-7959. 2. Imelda GLEZ. Overview of thyroid disease in . UpToDate. 2016. Accessed on December 04, 2015. Performed By: #### CMP, LIPNF, TSH, T4FTI, HBA1C #### [facility] [address] [address] T4/FTI Collected: 03/20/2018 Status: F Source: [place] 11:51 AM [facility] REPOSITORY TYPE CODE TESTS RESULT OUT OF REFERENCE UNITS RANGE LAB T4 5.5-10.2 ug/dL T4 9.7 LAB T4U 0.91-1.19 T4 Uptake 1.07 LAB FTI 5.3-10.8 ug/dL FTI 9.1 Performed By: #### CMP, LIPNF, TSH, T4FTI, HBA1C #### [facility] [address] [address] HEMOGLOBIN A1C Collected: 03/20/2018 Status: F Source: [place] 11:51 AM [facility] REPOSITORY TYPE CODE TESTS RESULT OUT OF REFERENCE UNITS RANGE LAB HGBA1C 4.3-5.6 % Hemoglobin A1c 5.4 LAB HBA0 mg/dL Est. Average Glucose 108 Result Comment: eAG: (Estimated average glucose) is a calculated value from HgbA1c and is artist representative of the average blood glucose level in the last 2-3 month period. Performed By: #### CMP, LIPNF, TSH, T4FTI, HBA1C #### [facility] [address] [id number] PROGRESS Observed: 03/20/2018 Status: COMPLETED Source: [place] 11:13 AM [facility] REPOSITORY HNO ID: [id number] Author: Priyank (ClarissaRonda Quarles Service: (none) Author Type: Nurse Practitioner Type: Progress Notes Filed: 03/20/2018 11:49 AM Note Text: Chief Complaint Patient presents with: Low Blood Sugar: doing better is check at home ( [place] [facility]) JOVANY Tang is a 42 year old female who presents here today for Above Complaints.. Previously followed by a nurse practitioner in [facility]. Went to [facility] ER after she had an episode of shakiness, tachycardia on 03/04/2018. Woke up on Monday after going to a democrat on Monday night, had some alcoholic drinks that night. Her urine drug screen showed amphematines, she states that she believes someone put something in her drink. States that her glucose was 57 in the ambulance, then 44 after two units of glucagon. She had a normal CBC, CMP. D-dimer was elevated, CTA of the chest did not show a PE, but did show bilateral small pulmonary nodules. She is a current smoker. She does admit that she is a drinker, she admits to drinking 6-8 drinks per night. Since this occurrence, she has not had anything to drink. Has not had any episodes of shakiness since stopping drinking. She has been checking her glucose at home with glucose joaquina. BG is 138 after meals, fasting glucose have ranged from 90-110. She states that she has been having problems with blood pressure increases, decreases. Gives the example of 70/30 BP reading last Monday. states that she also has random increase in decreases in heart rate. We'll still palpitations times. Does have a history of anxiety, panic attacks. This occurs at other times. She currently takes lisinopril 20 mg daily. She has tried to decrease lisinopril to 10 mg in the past but is found that she has hypertensive episodes. She had a 48 hour Holter monitor in 2016 thatwas normal. She did have normal ECG at [facility] most recently. she states that she also has a history of hyper lipidemia. Has been trying to work on reducing her cholesterol intake. Will be establishing with Dr. Pereira in late March. Past medical history, appointments, medications, allergies reviewed. Previous Medical History PAST MEDICAL HISTORY Diagnosis Date - Goiter, unspecified Goiter - Unspecified essential hypertension Previous Surgical History PAST SURGICAL HISTORY Procedure Laterality Date - REMOVAL OF TONSILS,<14 Y/O 1987 Tonsillectomy Family History FAMILY HISTORY Problem Relation Age of Onset - Breast Cancer Paternal Grandmother - Cancer Paternal Grandfather STOMACH CANCER - Colon Cancer Maternal Grandmother - Hypertension Maternal Grandfather Patient Allergies ALLERGIES Allergen Reactions - Penicillins Unknown Current Medications Current Outpatient Prescriptions on File Prior to Visit: lisinopril (ZESTRIL, PRINIVIL) 20 mg tablet Take 1 tablet by mouth once daily. No current facility-administered medications on file prior to visit. Social History Social History Marital status: Single Spouse name: Years of education: 13 Number of children: 1 Occupational History Occupation Employer Comment homemaker Social History Main Topics Smoking status: Current Every Day Smoker Packs/day: 0.25 Years: 10.00 Smokeless tobacco: Never Used Alcohol use: No Drug use: No Sexual activity: Yes Partners with: Male control/protection: Spermicide Other Topics Concern No BLOOD TRANSFUSIONS No CAFFEINE No OCCUPATIONAL EXPOSURE No HOBBY HAZARD No SLEEP CONCERN No STRESS CONCERN No WEIGHT CONCERN No DIET No BACK CARE No EXERCISE Yes Comment:DOESNT EXERCISE ROUTINELY BIKE HELMET No SEAT BELT No SELF EXAMS No REVIEW OF SYSTEMS: as above ? Reviewed relevant PMHx, PSHx, Social Hx, current medications and allergies. EXAM: BP 120/74 Pulse 88 Resp 20 Wt 68 kg (150 lb) General Appearance: Well appearing, alert, in no acute distress, well-hydrated, well nourished.. Head: Normocephalic, no masses, lesions, tenderness or abnormalities. Eyes: Anicteric sclera. Pupils are equally round and reactive to light. Extraocular movements are intact. . Ears: External ears normal, canals clear. Nose/Sinuses: Nares normal, septum midline, mucosa normal, no drainage or sinus tenderness. Oropharynx: Lips, mucosa, and tongue normal, teeth and gums normal, oropharynx normal. Neck: Supple, no adenopathy; thyroid symmetric, normal size. Lungs: Lungs clear to auscultation. No wheezing, rhonchi, rales. Heart: RRR without murmur, gallop, or rubs. No ectopy. Abdomen: Normal abdominal exam, Abdomen soft, non-tender. Bowel sounds normal. No masses, organomegaly. Extremities: No deformities, edema. Health Maintenance List DTAP,TDAP,TD(1 - Tdap) due on 1996 ONE PNEUMOVAX PRIOR TO AGE 65 due on 1996 PAP EVERY 5 YEARS due on 06/27/2010 HPV EVERY 5 YEARS due on 06/27/2010 MAMMOGRAM due on 2017 INFLUENZA(1) due on 02/17/2018 Data reviewed [facility] report reviewed. CTA of the chest showed bilateral pulmonary nodules, approximately 3 mm in size bilaterally. CT of the brain was normal and CBC was unremarkable. Glucose was 115, she had normal lipase, liver studies, BUN/creatinine sodium was 134, troponins were normal, drug urine testing was positive for amphetamines d-dimer was elevated, hCG was negative ASSESSMENT/PLAN: 1. Hypotension, unspecified hypotension type - ICD9: 458.9, ICD10: I95.9 (primary diagnosis) - has fluctuating hypertension and hypotension. We discussed decreasing her lisinopril from 20-10 mg she refused at this time as she states that she has in the past and has had hypertensive episodes. - CONSULT TO CARDIOLOGY - COMP METABOLIC PANEL 2. Hypoglycemia - ICD9: 251.2, ICD10: E16.2 - discussed continuing with alcohol cessation, eating 3 meals daily with small snacks in between that contain protein. - HGB A1C - COMP METABOLIC PANEL - TSH BLD - T4/FTI/T4U 3. Tachycardia - ICD9: 785.0, ICD10: R00.0 - coupled with low blood pressure readings, question POTS? - CONSULT TO CARDIOLOGY - COMP METABOLIC PANEL 4. Lung nodules - ICD9: 793.19, ICD10: R91.8 - follow-up in [address] of the chest for finding of bilateral lung nodules 3 mm. - CT CHEST WO IVCON 5. Hyperlipidemia, mixed - ICD9: 272.2, ICD10: E78.2 - to be determined upon return of lab results - Encouraged following a low fat, low cholesterol diet. - Discussed the benefits of regular aerobic exercise and weight loss. - LIPID PANEL, NONFASTING 6. ETOH abuse - ICD9: 305.00, ICD10: F10.10 - discussed alcohol intake and its influence on glucose. She has since stopped drinking and I encouraged her to continue cessation at this time. Get labs today, keep establishing appointment with Dr. Pereira. Priyank Quarles APRN.FRAMING MANAGER CNOV Observed: 03/20/2018 Status: COMPLETED Source: [place] 11:00 AM [facility] REPOSITORY Office Visit (FAMPWS) OXANA TANG ([id number]) 1975 F Date Time Provider Department 03/20/18 11:00 AM PRIYANK QUARLES ([facility]) [facility] During your visit today, we recorded the following information about you: Pulse Respiration Blood pressure Weight 88/minute 20/minute 120/74 68 kg Priyank Quarles APRN.CNP 03/20/2018 11:49 AM Signed Chief Complaint Patient presents with: Low Blood Sugar: doing better is check at home ( [facility]) HPI Oxana Tang is a 42 year old female who presents here today for Above Complaints.. Previously followed by a nurse practitioner in [facility]. Went to [facility] ER after she had an episode of shakiness, tachycardia on 03/04/2018. Woke up on Monday after going to a democrat on Monday night, had some alcoholic drinks that night. Her urine drug screen showed amphematines, she states that she believes someone put something in her drink. States that her glucose was 57 in the ambulance, then 44 after two units of glucagon. She had a normal CBC, CMP. D-dimer was elevated, CTA of the chest did not show a PE, but did show bilateral small pulmonary nodules. She is a current smoker. She does admit that she is a drinker, she admits to drinking 6-8 drinks per night. Since this occurrence, she has not had anything to drink. Has not had any episodes of shakiness since stopping drinking. She has been checking her glucose at home with glucose joaquina. BG is 138 after meals, fasting glucose have ranged from 90-110. She states that she has been having problems with blood pressure increases, decreases. Gives the example of 70/30 BP reading last Monday. states that she also has random increase in decreases in heart rate. We'll still palpitations times. Does have a history of anxiety, panic attacks. This occurs at other times. She currently takes lisinopril 20 mg daily. She has tried to decrease lisinopril to 10 mg in the past but is found that she has hypertensive episodes. She had a 48 hour Holter monitor in 2016 thatwas normal. She did have normal ECG at [facility] most recently. she states that she also has a history of hyper lipidemia. Has been trying to work on reducing her cholesterol intake. Will be establishing with Dr. Pereira in late March. Past medical history, appointments, medications, allergies reviewed. Previous Medical History PAST MEDICAL HISTORY Diagnosis Date - Goiter, unspecified Goiter - Unspecified essential hypertension Previous Surgical History PAST SURGICAL HISTORY Procedure Laterality Date - REMOVAL OF TONSILS,<14 Y/O 1987 Tonsillectomy Family History FAMILY HISTORY Problem Relation Age of Onset - Breast Cancer Paternal Grandmother - Cancer Paternal Grandfather STOMACH CANCER - Colon Cancer Maternal Grandmother - Hypertension Maternal Grandfather Patient Allergies ALLERGIES Allergen Reactions - Penicillins Unknown Current Medications Current Outpatient Prescriptions on File Prior to Visit: lisinopril (ZESTRIL, PRINIVIL) 20 mg tablet Take 1 tablet by mouth once daily. No current facility-administered medications on file prior to visit. Social History Social History Marital status: Single Spouse name: Years of education: 13 Number of children: 1 Occupational History Occupation Employer Comment homemaker Social History Main Topics Smoking status: Current Every Day Smoker Packs/day: 0.25 Years: 10.00 Smokeless tobacco: Never Used Alcohol use: No Drug use: No Sexual activity: Yes Partners with: Male control/protection: Spermicide Other Topics Concern No BLOOD TRANSFUSIONS No CAFFEINE No OCCUPATIONAL EXPOSURE No HOBBY HAZARD No SLEEP CONCERN No STRESS CONCERN No WEIGHT CONCERN No DIET No BACK CARE No EXERCISE Yes Comment:DOESNT EXERCISE ROUTINELY BIKE HELMET No SEAT BELT No SELF EXAMS No REVIEW OF SYSTEMS: as above ? Reviewed relevant PMHx, PSHx, Social Hx, current medications and allergies. EXAM: BP 120/74 Pulse 88 Resp 20 Wt 68 kg (150 lb) General Appearance: Well appearing, alert, in no acute distress, well-hydrated, well nourished.. Head: Normocephalic, no masses, lesions, tenderness or abnormalities. Eyes: Anicteric sclera. Pupils are equally round and reactive to light. Extraocular movements are intact. . Ears: External ears normal, canals clear. Nose/Sinuses: Nares normal, septum midline, mucosa normal, no drainage or sinus tenderness. Oropharynx: Lips, mucosa, and tongue normal, teeth and gums normal, oropharynx normal. Neck: Supple, no adenopathy; thyroid symmetric, normal size. Lungs: Lungs clear to auscultation. No wheezing, rhonchi, rales. Heart: RRR without murmur, gallop, or rubs. No ectopy. Abdomen: Normal abdominal exam, Abdomen soft, non-tender. Bowel sounds normal. No masses, organomegaly. Extremities: No deformities, edema. Health Maintenance List DTAP,TDAP,TD(1 - Tdap) due on 1996 ONE PNEUMOVAX PRIOR TO AGE 65 due on 1996 PAP EVERY 5 YEARS due on 06/27/2010 HPV EVERY 5 YEARS due on 06/27/2010 MAMMOGRAM due on 2017 INFLUENZA(1) due on 02/17/2018 Data reviewed [facility] report reviewed. CTA of the chest showed bilateral pulmonary nodules, approximately 3 mm in size bilaterally. CT of the brain was normal and CBC was unremarkable. Glucose was 115, she had normal lipase, liver studies, BUN/creatinine sodium was 134, troponins were normal, drug urine testing was positive for amphetamines d-dimer was elevated, hCG was negative ASSESSMENT/PLAN: 1. Hypotension, unspecified hypotension type - ICD9: 458.9, ICD10: I95.9 (primary diagnosis) - has fluctuating hypertension and hypotension. We discussed decreasing her lisinopril from 20-10 mg she refused at this time as she states that she has in the past and has had hypertensive episodes. - CONSULT TO CARDIOLOGY - COMP METABOLIC PANEL 2. Hypoglycemia - ICD9: 251.2, ICD10: E16.2 - discussed continuing with alcohol cessation, eating 3 meals daily with small snacks in between that contain protein. - HGB A1C - COMP METABOLIC PANEL - TSH BLD - T4/FTI/T4U 3. Tachycardia - ICD9: 785.0, ICD10: R00.0 - coupled with low blood pressure readings, question POTS? - CONSULT TO CARDIOLOGY - COMP METABOLIC PANEL 4. Lung nodules - ICD9: 793.19, ICD10: R91.8 - follow-up in [address] of the chest for finding of bilateral lung nodules 3 mm. - CT CHEST WO IVCON 5. Hyperlipidemia, mixed - ICD9: 272.2, ICD10: E78.2 - to be determined upon return of lab results - Encouraged following a low fat, low cholesterol diet. - Discussed the benefits of regular aerobic exercise and weight loss. - LIPID PANEL, NONFASTING 6. ETOH abuse - ICD9: 305.00, ICD10: F10.10 - discussed alcohol intake and its influence on glucose. She has since stopped drinking and I encouraged her to continue cessation at this time. Get labs today, keep establishing appointment with Dr. Pereira. CANDY Monroe APRN.CNP 03/20/2018 11:39 AM Signed Get labs today, keep establishing appt with Dr. Pereira. Priyank Quarles APRN.CNP Referring Provider: SELF [[id number]] Allergies As of Date: 03/20/2018 Noted Allergy Reaction PENICILLINS 04/22/2016 16 - Unknown Date Reviewed: 03/20/2018 Reviewed by: Maryann Nava) AMANUEL Hernandez - Fully Assessed Reason for Visit: Low Blood Sugar [211] Cmt: doing better is check at home ( [facility]) Reason For Visit History Recorded Primary Visit Diagnosis:Hypotension, unspecified hypotension type [I95.9] Other Visit Diagnoses:Hypoglycemia [E16.2] Tachycardia [R00.0] Lung nodules [R91.8] Hyperlipidemia, mixed [E78.2] ETOH abuse [F10.10] Order(s):CT CHEST WO IVCON [1415070] Order #: [id number] FUTURE CONSULT TO CARDIOLOGY [9001] Order #: [id number]: 1 HGB A1C [[id number]] Order #: [id number] FUTURE COMP METABOLIC PANEL [SQCMP] Order #: [id number] FUTURE TSH BLD [SQTSH] Order #: [id number] FUTURE T4/FTI/T4U [[id number]] Order #: [id number] FUTURE LIPID PANEL, NONFASTING [SQLIPNF] Order #: [id number] FUTURE Prescriptions as of 03/20/2018 Sig: FISH OIL ORAL Take 1,000 Units by mouth twi* VITAMIN D3 ORAL Take by mouth. LISINOPRIL 20 MG TABLET Take 1 tablet by mouth once d* Medication notes this encounter HYDROCHLOROTHIAZIDE 25 MG TABLET >> Maryann Hernandez MA, MA 03/20/2018 10:55 AM >> MARYANN HERNANDEZ Mar 20, 2018 10:55 AM No longer taking IRON (FERROUS SULFATE) ORAL >> Maryann Hernandez MA, MA 03/20/2018 10:55 AM >> MARYANN HERNANDEZ Mar 20, 2018 10:55 AM No longer taking Problem List As Of Date 03/20/2018 Noted Resolved SUPERVIS OTHER NORMAL PREG [Z34.80] INVALID FOR* Other instructions from your clinician: Get labs today, keep establishing appt with Dr. Pereira. Priyank Quarles APRN.CLARISSA Medications Discontinued During This Encounter hydroCHLOROthiazide (HYDRODIURIL, ES* 30 t* 2 04/22/2016 03/20/2018 Route: ORAL Sig: Take 1 tablet by mouth once daily. Disc: Discontinued by Patient IRON, FERROUS SULFATE, ORAL 03/20/2018 Class: Historical Med Route: ORAL Sig: Take by mouth. Disc: Course of therapy completed Encounter Status:Closed by PRIYANK QUARLES CNP on 03/20/18 12 LEAD ELECTROCARDIOGRAM Observed: 03/07/2018 Status: F Source: [place] 2:34 PM [facility] REPOSITORY [facility] Cardiovascular Services [address] [place] [id number] 12 Lead EKG 03/04/18 1611 MR#: [id number] Acct: [id number] Name: OXANA TANG Rep #: [id number] : 1975 42 From: Doug Simeon MD Attending Dr: Status: DEP ER Ordering Dr: Lyubov Elizalde DO Date: 03/04/18 Location: ED Sex: F C Admitted: Test Reason : Blood Pressure : / mmHG Vent. Rate : 135 BPM Atrial Rate : 135 BPM P-R Int : 134 ms QRS Dur : 080 ms QT Int : 366 ms P-R-T Axes : 075 064 087 degrees QTc Int : 549 ms Sinus tachycardia Poor R wave progression Nonspecific ST and T wave abnormality Abnormal ECG Confirmed by FABRICIO WALTON, DOUG ([id number]), associate entertainment editor IGOR CORTES ([id number]) on 03/07/2018 2:33:58 PM Referred By: JADE Confirmed By:DOUG SIMEON MD 03/07/18 1434 Date Doug Simeon MD CC: ESTEFANY Narayanan; Lyubov Elizalde Signed CBC Collected: 03/05/2018 Status: F Source: [facility] 4:03 PM [facility] EM[facility] REPOSITORY TYPE CODE TESTS RESULT OUT OF REFERENCE UNITS RANGE LAB WBC(LOINC) 4.60-10.80 10 3/mcL WBC 7.50 LAB RBCCT(LOINC 4.20-5.40 10 6/mcL ) RBC 5.15 LAB HGB(LOINC) 12.0-16.0 G/dL Hgb 16.0 LAB HCT(LOINC) 37.0-47.0 % Hct 45.9 LAB MCV(LOINC) 80.0-94.0 fL MCV 89.1 LAB MCH(LOINC) 27.0-31.2 pg MCH 31.1 LAB MCHC(LOINC) 33.0-37.0 G/dL MCHC 34.9 LAB RDW(LOINC) 11.5-14.5 % High RDW 16.9 LAB PLT(LOINC) 130-400 10 3/mcL Platelet 238 LAB MPV(LOINC) 7.4-10.4 fL MPV 7.6 Performed By: #### CBC, ADIFF, ANEU #### [address] [address] #### BMP, GFR #### [address] [address] .AUTO DIFF Collected: 03/05/2018 Status: F Source: [facility] 4:03 [facility] [place] REPOSITORY TYPE CODE TESTS RESULT OUT OF REFERENCE UNITS RANGE LAB DEBBIE(LOINC) 37.0-80.0 % Neutrophil % 71.0 LAB LYM(LOINC) 10.0-50.0 % Lymphocyte % 22.8 LAB MON(LOINC) 1.7-13.0 % Monocyte % 4.6 LAB EO(LOINC) 0.0-7.0 % Eosinophil % 0.7 LAB BAS(LOINC) 0.0-2.5 % Basophil % 0.9 LAB ABLYM(LOIN 0.77-3.85 10 3/mcL C) Lymphocyte, 1.70 Absolute LAB MASTER(LOINC 0.15-1.00 10 3/mcL ) Monocyte, 0.30 Absolute LAB AEOS(LOINC 0.00-0.40 10 3/mcL ) Eosinophil, 0.00 Absolute LAB ABAS(LOINC 0.00-0.19 10 3/mcL ) Basophil, 0.10 Absolute Performed By: #### CBC, ADIFF, ANEU #### [address] [place], [place] [address] #### BMP, GFR #### [address] [address] .NEUABS Collected: 03/05/2018 Status: F Source: [facility] 4:03 [facility] [place] REPOSITORY TYPE CODE TESTS RESULT OUT OF REFERENCE UNITS RANGE LAB ANEU(LOINC) 2.85-6.16 10 3/mcL Neutrophil, 5.30 Absolute Performed By: #### CBC, ADIFF, ANEU #### [address] [address] #### BMP, GFR #### [address] [address] BMP Collected: 03/05/2018 Status: F Source: [facility] 4:03 [facility] [place] REPOSITORY TYPE CODE TESTS RESULT OUT OF REFERENCE UNITS RANGE LAB GLU(LOINC) 70-105 mg/dL Glucose High Level 107 LAB NA(LOINC) 136-145 mmol/L Sodium Level 137 LAB K(LOINC) 3.5-5.1 mmol/L Potassium Level 4.3 LAB CL(LOINC) 98-107 mmol/L Chloride 100 LAB CO2(LOINC) 22-29 mmol/L CO2 26 LAB EBAL(LOINC mEq/L ) Electrolyte Balance 11.0 LAB BUN(LOINC) 7-18 mg/dL Low BUN 5 LAB CRE(LOINC) 0.55-1.02 mg/dL Creatinine Lvl (s) 0.69 LAB BC(LOINC) 7-27 ratio BUN/Creatinine 7 Ratio LAB CA(LOINC) 8.4-10.2 mg/dL Calcium Lvl 9.8 Performed By: #### CBC, ADIFF, ANEU #### [address] [address] #### BMP, GFR #### [address] [address] .GFR Collected: 03/05/2018 Status: F Source: [facility] 4[facility]03 [facility] REPOSITORY TYPE CODE TESTS RESULT OUT OF REFERENCE UNITS RANGE LAB GFRAA(LOINC ml/min/1.73 ) sqm GFR 114 Russian Result Comment: GFR Population mean for , Non- Americans Ages 20-29 = 116 mL/min/1.73 sq.m. Ages 30-39 = 107 mL/min/1.73 sq.m. Ages 40-49 = 99 mL/min/1.73 sq.m. Ages 50-59 = 93 mL/min/1.73 sq.m. Ages 60-69 = 85 mL/min/1.73 sq.m. Ages 70+ = 75 mL/min/1.73 sq.m. Chronic Kidney Disease: Less than 60 mL/min/1.73 square meters End Stage Renal Disease: Less than 15 mL/min/1.73 square meters LAB GFRNO(LOINC) ml/min/1.73sqm GFR Non- 94 Result Comment: GFR Population mean for , Non- Americans Ages 20-29 = 116 mL/min/1.73 sq.m. Ages 30-39 = 107 mL/min/1.73 sq.m. Ages 40-49 = 99 mL/min/1.73 sq.m. Ages 50-59 = 93 mL/min/1.73 sq.m. Ages 60-69 = 85 mL/min/1.73 sq.m. Ages 70+ = 75 mL/min/1.73 sq.m. Chronic Kidney Disease: Less than 60 mL/min/1.73 square meters End Stage Renal Disease: Less than 15 mL/min/1.73 square meters Performed By: #### CBC, ADIFF, ANEU #### [address] [address] #### BMP, GFR #### [address] [address] DISCHARGE INSTRUCTION Observed: 03/04/2018 Status: F Source: [place] 7:46 PM [facility] REPOSITORY [facility] Medical Records Department [address] [place] [address] Discharge Instruction 03/04/181943 MR#: [id number] Acct: [id number] Name: OXANA TANG Rep #: [id number] : 1975 42 From: Lyubov Elizalde DO PCP: ESTEFANY Morales Status: REG ER ED Disposition - Plan for ED Patient: Chief Complaint: Dizziness Instructions: ED Hyperventilation Syndrome, Hypoglycemia (Low Blood Sugar), ED Drug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 bladder was 179 ml. US/Pelvic (Non ) IMPRESSION: Left adnexal cyst. Electronically Signed: Willi Raya MD at 20:14 EDT , Service support , CC: ESTEFANY Narayanan; Anusha Loco MD Marine Resource Economist: Signed CBC W/DIFF, AUTOMATED Collected: 11/28/2017 Status: F Source: [place] 5:30 PM [facility] REPOSITORY TYPE CODE TESTS RESULT OUT OF RANGE REFERENCE UNITS LAB L100.1000 4.4-11.0 K/mm3 Normal WBC 7.8 LAB L100.1200 4.2-5.4 M/mm3 Normal RBC 4.88 LAB L100.1300 12.0-15.0 g/dl High HGB 15.2 LAB L100.1400 37-47 % Normal HCT 46.1 LAB L100.1500 81-99 fL Normal MCV 94.5 LAB L100.1600 27.0-32.0 pg Normal MCH 31.1 LAB L100.1700 32-36 g/gl Normal MCHC 33.0 LAB L100.1810 11.6-14.6 % Normal RDW CV 14.5 LAB L100.1820 35.1-43.9 fl High RDW SD 49.9 LAB L100.1900 150-450 K/mm3 Normal PLT 233 LAB L100.2000 6.2-12.0 fl Normal MPV 9.2 LAB L100.2100 47-70 % Normal NEUT% 68.2 LAB L100.2200 19-41 % Normal LY% 24.2 LAB L100.2300 0-10 % Normal MONO% 6.6 LAB L100.2400 0-5 % Normal EO% 0.6 LAB L100.2500 0-1 % Normal BASO% 0.3 LAB L100.2550 0.0-0.9 % Normal IM GRAN % 0.100 Result Comment: IG% - Immature Granulocytes (promyelocytes, myelocytes and metamyelocytes) > 1% indicates that a LEFT SHIFT is Present. LAB L100.2620 2.0-7.7 X10 3/uL Normal Absolute Neut 5.3 LAB L100.2720 0.83-4.51 X10 3/ul Normal Absolute Lymph 1.89 Performed By: #### L100.0100 #### [facility] [address] [facility]. [place], [place], [address] BASIC METABOLIC Collected: 11/28/2017 Status: F Source: [place] PROFILE (BMP) 5:30 PM [facility] REPOSITORY TYPE CODE TESTS RESULT OUT OF RANGE REFERENCE UNITS LAB L501.0100 74-106 mg/dL Normal GLU 90 Result Comment: Please note revised GLUCOSE reference range effective 2017. LAB L501.1000 7-18 mg/dL Normal BUN 7 LAB L501.1100 0.55-1.02 mg/dL Normal CREAT,SERUM 0.90 Result Comment: The validity of the calculated GFR AND GFRAA in patients over 70 years has not been determined. Clinical correlation is essential. LAB L501.1110 >60 mL/min Normal EST GFR 74 Result Comment: Non- GFR Calc LAB L501.1115 >60 mL/min Normal EST GFR - AA 89 Result Comment: GFR Calc LAB L501.1300 10-20 RATIO Low BUN/CRE 7.8 LAB L501.2200 8.5-10.1 mg/dL Normal CA 8.8 LAB L501.5300 136-145 mmol/L Normal NA 139 LAB L501.5600 3.5-5.1 mmol/L Normal K 3.9 LAB L501.5900 98-107 mmol/L Normal CL 105 LAB L501.6100 21.0-32.0 mmol/L Normal CO2 24.0 LAB L501.6200 5-15 Normal GAP 10 Performed By: #### L500.2500 #### [facility] [address] [place], [place], [address] ,SERUM,HCG QUALI. Collected: Status: F Source: [place] 11/28/2017 5:30 PM [facility] REPOSITORY TYPE CODE TESTS RESULT OUT OF REFERENCE UNITS RANGE LAB L700.7000 0-9 Nonpreg Negative Normal HCGSQUAL NEGATIVE LAB L700.6700 =>Qualitative mIU/mL Normal HCG Qual < 1 triggr Performed By: #### L700.6800 #### [facility] [address] [facility] [place], [address] URINALYSIS, COMPLETE Collected: 11/28/2017 Status: F Source: [place] 5:21 PM [facility] REPOSITORY Order Comment: Order Date: 11/28/17 Has pt arrived? Y How was Urine Obtained? CLEAN CATCH TYPE CODE TESTS RESULT OUT OF RANGE REFERENCE UNITS LAB L400.3000 Yellow COLOR Normal Yellow LAB L400.3050 Clear Normal CLARITY Clear LAB L400.3200 Normal mg/dl Normal GLUCOSE, UR Normal LAB L400.3300 Negative mg/dL Normal BILIRUBIN URINE Negative LAB L400.3400 Negative mg/dl Normal KETONE UR Negative LAB L400.3465 1.002-1.030 Normal SP.GR. DIPSTX 1.010 LAB L400.3550 5.0 - 8.0 pH UR Normal 6.5 LAB L400.3600 Negative mg/dl PROT Normal DIPSTX Negative LAB L400.3700 Normal mg/dl Normal UROBILI Normal LAB L400.3750 Negative Normal NITRITE UR Negative LAB L400.3780 Negative /ul Normal OCCULT BLOOD-UR Negative LAB L400.3800 Negative /ul High LEUK ESTERASE 500 LAB L400.4050 0-5 /hpf WBC Normal 0-5 SEEN LAB L400.4100 0-5 /hpf 0 Normal RBC-UA SEEN LAB L400.4150 5-10 /hpf SQUAM Normal EPI 0-5 SEEN LAB L400.4300 None Seen /hpf 0 Normal BACTERIA SEEN LAB L400.4350 <or=2+ /hpf 0 Normal MUCUS, URINE SEEN Performed By: #### L400.0001 #### [facility] [address] [facility] [place], [address] ABDOMEN/PELVIS WITHOUT Observed: 11/28/2017 Status: F Source: [place] CONT 5:11 PM [facility] REPOSITORY [facility] Imaging Services [address] [place] [address] Abdomen/Pelvis without Cont MR#: [id number] Acct: [id number] Name: OXANA TANG Rep #: [id number] : 1975 F 42 From: Willi Raya MD PCP: ESTEFANY Morales Status: REG ER Study: Abdomen/Pelvis without Cont Date of Exam: 11/28/17 Exam# [id number] Ordering Dr: Anusha Loco MD STUDY: CT ABDOMEN AND PELVIS WITHOUT CONTRAST REASON FOR EXAM: Female, 42 years old. Right flank pain. Nausea. RADIATION DOSAGE (If Supplied By Facility): CTDIvol = ( 9.62 ) mGy, DLP = ( 464.55 ) mGycm TECHNIQUE: Transaxial images were obtained from the dome of the diaphragm to the symphysis pubis without oral contrast, and without intravenous contrast. Sagittal and coronal images were reconstructed. Individualized dose optimization techniques were used for this CT. COMPARISON: August 26, 2013. FINDINGS: The visualized lung bases are unremarkable. The visualized portions of the heart are within normal limits. Normal liver. The gallbladder is contracted. Normal spleen. Normal pancreas. Normal bilateral adrenal glands. Normal right kidney. Normal left kidney. No stones or hydronephrosis. Normal visualized stomach. Normal small intestine. Normal colon. The appendix is visualized and appears normal. There is mild atherosclerotic calcification of the abdominal aorta, without a demonstrated aneurysm. Normal inferior vena cava. Normal retroperitoneum. Normal urinary bladder. Normal visualized uterus. There is no free fluid in the abdomen or pelvis. Normal abdominal wall. Normal osseous structures. CT/Abdomen/Pelvis without Cont IMPRESSION: No urinary stones or hydronephrosis. Contracted gallbladder No obstruction. Electronically Signed: Willi Raya MD at 18:40 EDT , Service support , CC: ESTEFANY Narayanan; Anusha Loco MD Marine Resource Economist: Signed OPERATIVE REPORT Observed: 11/08/2017 Status: F Source: [place] 10:45 AM [facility] REPOSITORY [facility] Medical Records Department [address] [place] [address] Operative Report 11/08/17 1006 MR#: [id number] Acct: [id number] Name: OXANA TANG Rep #: [id number] : 1975 42 From: John Campos MD PCP: ESTEFANY Morales Status: REG [facility] Y Location: [place] [address] Problem List (1) Moderate cervical dysplasia, histologically confirmed Status: Chronic Report of Operation Date of Procedure: 11/08/17 Pre-Operative Diagnosis: Moderate Cervical Dysplasia Post-Operative Diagnosis: same Surgery/Procedure Performed:: Loop Electrosurgical Excisional Procedure Description of Surgical Findings:: Normal appearing cervix. Transition zone well defined with nonstaining area extending to 2 to 3 o'clock pitting machine operator: None Type of Anesthesia:: MAC Anesthesiologist: Antoni Pinto Special Medications: none Specimen's removed: portion of cervix Drains: none Estimated Blood Loss (mL): minimal Fluids Replaced: 400cc Description of Procedure: Oxana was taken to the OR with IV running. She was given clindamycin and gentamicin intravenously prior to the procedure. MAC anesthesia was then introduced without complication. She was then prepped and draped in the dorsal lithotomy position. The bladder was drained with a red rubber catheter. A shielded speculum was then placed. The cervix was identified and painted with lugol's solution to define the transition zone. Using a hand held loop the exocervix was removed. Ball cautery was then used to cauterize the base of the cervical defect and margins including the endocervix. Hemostasis was assured. All instruments were then removed. Sponge and instrument counts were correct. She was reversed from anesthesia and taken to the recovery room in stable condition. Grafts/Implants Used: none - Complications none - Admit VTE Documentation VTE Present on Admission: No VTE Mechan Device Prophylaxis: SCD's VTE Pharm Prophylaxis ordered?: No 11/08/17 1045 <Electronically signed by John Campos MD> Date John Campos MD CC: SVITLANA-Chary Narayanan; John Campos MD Signed DISCHARGE INSTRUCTION Observed: 11/08/2017 Status: F Source: [place] 10:06 AM [facility] REPOSITORY [facility] Medical Records Department [address] [place] [address] Instructions for Home/Discharge Instructions 11/08/17 1004 MR#: [id number] Acct: [id number] Name: OXANA TANG Rep #: [id number] : 1975 42 From: John Campos MD PCP: ESTEFANY Morales Status: REG SDC - Discharge Diagnoses Reason(s) for Visit for Discharge Instructions: LEEP You will use the following diet at home:: No restrictions Discharge Activity: Return to Normal Activity, May Drive, May not drive while taking narcotic pain medications., May Shower Return to work on:: 11/13/17 May resume sexual activity in: 4 weeks Call your doctor if your incision/area has: Sudden Increased Bleeding, Increased Pain/ Swelling, Foul Smelling Discharge Call your doctor if you observe: Fever of 101 or Higher, Inability to urinate, Inability to have a bowel movement, Using more than one pad per hour, Shortness of breath, Chest pain, Calf discomfort, Uncontrolled pain Cleanse incision/area with: Soap AND Water Allergies/Adverse Reactions: Allergies Penicillins Allergy (Verified 10/31/17 13:23) Hives Medications to take at Discharge Lisinopril 20 mg PO DAILY 07/24/17 Ergocalciferol [Vitamin D] 50,000 unit PO Q7D 11/08/17 Ibuprofen [Ibu] 600 mg PO Q6H PRN PRN #30 tab 11/08/17 [place]-3 Fatty Acids/Fish Oil [Fish Oil 1,000 mg Capsule] 2 each PO DAILY 11/08/17 Oxycodone [Oxyir] 5 mg PO Q4H PRN PRN 7 Days #14 tab 11/08/17 The following prescriptions were given: Oxycodone [Oxyir] 5 mg PO Q4H PRN PRN 7 Days #14 tab PRN Reason: Severe Pain (6-10/10) Ibuprofen [Ibu] 600 mg PO Q6H PRN PRN #30 tab PRN Reason: pain or cramping Primary Care Physician: Pio Narayanan, ESTEFANY [Primary Care Provider] - Please Follow Up With: Jhon Campos MD When: one week Proposed Discharge Date: 11/08/17 11/08/17 1006 <Electronically signed by John Campos MD> Date oJhn Campos MD CC: ESTEFANY Narayanan LEEP CONIZATION Observed: 11/08/2017 Status: F Source: [place] 9:30 AM [facility] REPOSITORY Patient: OXANA TANG : 1975 (42/F) Acct Num: [id number] Phys: John Campos MD Unit Num: [id number] Loc: [facility] Specimen: [id number] Received: 11/08/17 - 1214 Spec Type: Leep Cone TISSUES TISSUES: UTERINE CERVIX LEEP COMMENT Please make reference to previous specimen ([id number]) cervix at 10 o clock, biopsy with diagnosis of mild squamous dysplasia and endocervix, curettings with diagnosis of strips of squamous epithelium with mild to moderate squamous dysplasia. Results from immunohistochemistry ([id number]) for surrogate HPV marker (p16) will be reported separately. GROSS DESCRIPTION Received in fixative is one container labeled with the patient's name and designated LEEP cone. The specimen consists of an irregular fragment of smooth, glistening barba mucosa with attached submucosal tissue measuring 2.1 x 1.2 cm and a depth of excision measuring 1 cm. No mucosal mass lesions are identified. The specimen is inked, radially sectioned and totally submitted in four cassettes: 1 presumed 12-3 o clock, 2 presumed 3- 6 o clock, 3 presumed 6-9 o clock, 4 presumed 9-12 o clock. / AM:selin 11/08/17 TC:5 CPT: 73782 HEADER OPERATION: LEEP cone PRE-OP DIAGNOSIS: Cervical dysplasia TISSUE SUBMITTED: LEEP cone MICROSCOPIC DESCRIPTION Slides are reviewed. MICROSCOPIC DIAGNOSIS Cervix, LEEP conization: Mild squamous dysplasia (LGSIL, WILTON I). The resection margins are free of dysplastic changes. Focal mild acute and chronic inflammation and squamous metaplasia. SJ:selin 11/09/17 Signed Jose Cruz Zhongin 11/10/17 <signature on file> Performed By: #### PCONE #### [facility] [address] [place], [address] ,URINE Collected: 11/08/2017 Status: F Source: [place] 8:15 AM [facility] REPOSITORY TYPE CODE TESTS RESULT OUT OF REFERENCE UNITS RANGE LAB L400.8000 Negative Normal HCGUQUAL Negative Result Comment: Very dilute urine specimens, as indicated by a low specific gravity, may not contain artist representative levels of hCG. If is still suspected, a first morning urine specimen should be collected 48 hours later and tested. Performed By: #### L400.7600 #### [facility] [address] [facility] [place], [address] IMMUNOHISTOCHEMISTRY Observed: 11/08/2017 Status: F Source: [place] 12:00 AM [facility] REPOSITORY Patient: OXANA TANG : 1975 (42/F) Acct Num: [id number] Phys: John Campos MD Unit Num: [id number] Loc: [facility] Specimen: [id number] Received: 11/09/17 - 1240 Spec Type: IMMUNO TISSUES TISSUES: Uterine cervix, NOS - #2 AND 4 SPECIMEN INFORMATION: Tissue Source: LEEP cone Clinical Info: Cervical dysplasia Specimen Number: [id number] #2 AND 4 CPT code: 41050, 22789 x3 METHODOLOGY: Deparaffinized sections of prefer/formalin-fixed tissue or PAP/DQ stained slides are incubated with monoclonal/polyclonal antibodies/oligonucleotide probes. Localization is made via biotin free immunoperoxidase method. Appropriate controls are performed and reacted as expected. Results on target cell population are indicated in the following table: RESULTS: ANTIBODY / CLONE RESULT Block 2 P16 (E6H4) positive, focal and patchy Ki-67 (30-9) positive, low to moderate Block 4 P16 (E6H4) positive, focal and patchy Ki-67 (30-9) positive, low These tests were developed and their performance characteristics determined by [facility]. They may not have been cleared or approved by the U.S. Food and Drug Administration. The FDA has determined that such clearance or approval is not necessary. INTERPRETATION: LEEP cone: Focal mild squamous dysplasia. SJ:selin 11/10/17 [facility]YS[facility] [address] [address] Signed Jose Cruzjennifer Wang 11/10/17 <signature on file> Performed By: #### PIMM #### [facility] [address] [place] [address]. [place], [place], [address] CBC-COMPLETE BLOOD CNT Collected: 11/07/2017 Status: F Source: [place] NO DIFF 2:31 PM [facility] REPOSITORY TYPE CODE TESTS RESULT OUT OF RANGE REFERENCE UNITS LAB L100.1000 4.4-11.0 K/mm3 Normal WBC 4.5 LAB L100.1200 4.2-5.4 M/mm3 Normal RBC 4.70 LAB L100.1300 12.0-15.0 g/dl Normal HGB 14.8 LAB L100.1400 37-47 % Normal HCT 45.1 LAB L100.1500 81-99 fL Normal MCV 96.0 LAB L100.1600 27.0-32.0 pg Normal MCH 31.5 LAB L100.1700 32-36 g/gl Normal MCHC 32.8 LAB L100.1810 11.6-14.6 % Normal RDW CV 14.6 LAB L100.1820 35.1-43.9 fl High RDW SD 51.4 LAB L100.1900 150-450 K/mm3 Normal PLT 231 LAB L100.2000 6.2-12.0 fl Normal MPV 9.5 Performed By: #### L100.0500 #### [facility] [address] [facility] [place], [address] PROTHROMBIN TIME W/INR Collected: 11/07/2017 Status: F Source: [place] 2:31 PM [facility] REPOSITORY TYPE CODE TESTS RESULT OUT OF RANGE REFERENCE UNITS LAB L300.4150 11.7-14.9 SECONDS Normal PROTIME 13.1 LAB L300.4200 Normal INR 1.0 Performed By: #### L300.3900, L300.4310 #### [facility] [address] [place], [address] PARTIAL THROMBOPLAST Collected: 11/07/2017 Status: F Source: [place] TIME 2:31 PM [facility] REPOSITORY TYPE CODE TESTS RESULT OUT OF RANGE REFERENCE UNITS LAB L300.4310 24.1-36.2 Seconds Normal PTT 30.3 Performed By: #### L300.3900, L300.4310 #### [facility] [address] [place], [address] ,SERUM,HCG QUALI. Collected: Status: F Source: [place] 11/07/2017 2:31 PM [facility] REPOSITORY TYPE CODE TESTS RESULT OUT OF REFERENCE UNITS RANGE LAB L700.7000 0-9 Nonpreg Negative Normal HCGSQUAL NEGATIVE LAB L700.6700 =>Qualitative mIU/mL Normal HCG Qual < 1 triggr Performed By: #### L700.6800 #### [facility] [address] [place], [address] TYPE AND SCREEN Collected: 11/07/2017 Status: F Source: [place] 2:31 PM [facility] REPOSITORY Order Comment: Surgery Date: 11/08/17 Hx of Preganancy in last 3 Months No Ever experience any problems with transfusion(s)? N Hx of Transfusion in last 3 Months N Reason for Type AND Screen/Red Cells: SURGERY SURGICAL PROCEDURE: 46848 TYPE CODE TESTS RESULT OUT OF RANGE REFERENCE UNITS LAB B10.0800 A Normal BLOOD TYPE GEL POSITIVE LAB B100.4000 Normal Antibody NEGATIVE Screen Performed By: #### B101.7475 #### [facility] [address] [facility] [place], [address] XR HAND MINIMUM 3 Observed: 09/30/2017 Status: F Source: [place] VIEWS LEFT 3:39 PM [facility] REPOSITORY ORIGINAL XR HAND MINIMUM 3 VIEWS LEFT CLINICAL STATEMENT: Fall 2 days ago, left hand pain and swelling at first and second metacarpophalangeal joints COMPARISON: Left hand radiograph 01/24/2017 FINDINGS: No acute fracture or dislocation is identified. The carpal arcs and joint spaces are maintained. There is no radiopaque foreign body. IMPRESSION: No acute fracture or dislocation. I have personally reviewed the images of this examination and agree with the resident's findings and interpretation. Interpreted By: Jonathan Gerber MD Preliminary Report By: Syd Virgen DO Electronically Signed By: Jonathan Gerber MD Dictated Date: 09/30/2017 3:47:08 PM Prelim Date: 09/30/2017 3:48:23 PM Sign Date: 09/30/2017 3:49:08 PM CERVICAL Observed: 09/28/2017 Status: F Source: [place] 12:00 AM [facility] REPOSITORY Patient: OXANA TANG : 1975 (42/F) Acct Num: [id number] Phys: John Campos MD Unit Num: [id number] Loc: [facility] Specimen: [id number] Received: 09/28/17 - 1336 Spec Type: CERV TISSUES TISSUES: A. Uterine cervix, NOS B. Endocervical COMMENT A. Results from immunohistochemistry ([id number]) for surrogate HPV marker (p16) will be reported separately. Case has been reviewed in consultation with Dr. Wang who concurs with the above diagnosis. IDC:IVANIA GROSS DESCRIPTION A - Received in fixative is one container labeled with the patient's name and designated cervical biopsy 10 o'clock. The specimen consists of multiple fragments of mucoid tissue that in aggregate measure 2 x 0.2 x 0.1 cm. The specimen is totally submitted in one cassette. B - Received in fixative is one container labeled with the patient's name and designated ECC. The specimen consists of multiple fragments of hemorrhagic mucoid tissue that in aggregate measure 3 x 2.5 x 0.2 cm. The specimen is totally submitted in one cassette. / IVANIA:selin 09/29/17 TC:0 CPT: 77800 x2 HEADER OPERATION: Colposcopy PRE-OP DIAGNOSIS: HGSIL pap 02/2017 TISSUE SUBMITTED: A Cervical biopsy 10 o clock, B - ECC MICROSCOPIC DESCRIPTION Slides are reviewed. MICROSCOPIC DIAGNOSIS A. Cervix at 10 o clock, biopsy: Mild squamous dysplasia, WILTON I (LGSIL). Changes consistent with HPV cytopathic effect. B. Endocervix, curettings: Strips of benign endocervix with squamous metaplasia. Strips of squamous epithelium with mild to moderate squamous dysplasia, WILTON I-II (HGSIL). AM:selin 10/02/17 Signed Austin Buckley 10/02/17 <signature on file> Performed By: #### PCER #### [facility] [address] [place], [address] IMMUNOHISTOCHEMISTRY Observed: 09/28/2017 Status: F Source: [place] 12:00 [facility] REPOSITORY Patient: OXANA TANG : 1975 (42/F) Acct Num: [id number] Phys: John Campos MD Unit Num: [id number] Loc: [facility] Specimen: [id number] Received: 10/02/171422 Spec Type: IMMUNO TISSUES TISSUES: A. Uterine cervix, NOS B. Endocervical SPECIMEN INFORMATION: Tissue Source: A Cervical biopsy 10 o clock, B - ECC Clinical Info: HGSIL Specimen Number: [id number] A AND B CPT code: 35043 x2, 32315 x2 METHODOLOGY: Deparaffinized sections of prefer/formalin-fixed tissue or PAP/DQ stained slides are incubated with monoclonal/polyclonal antibodies/oligonucleotide probes. Localization is made via biotin free immunoperoxidase method. Appropriate controls are performed and reacted as expected. Results on target cell population are indicated in the following table: RESULTS: ANTIBODY / CLONE RESULT Block A P16 (E6H4) positive, rare cells Ki-67 (30-9) positive, focal Block B P16 (E6H4) positive, block-like Ki-67 (30-9) positive, moderate These tests were developed and their performance characteristics determined by [facility]. They may not have been cleared or approved by the U.S. Food and Drug Administration. The FDA has determined that such clearance or approval is not necessary. INTERPRETATION: A. Cervix at 10 o clock, biopsy: Consistent with mild squamous dysplasia. B. Endocervix, curettings: Mild to moderate squamous dysplasia, WILTON I-II ( HGSIL). AM:selin 10/06/17 PHYSICIAN AND INSTITUTION [facility] [address] [place], [place] [address] Signed Austin Buckley 10/06/17 <signature on file> Performed By: #### KIRK #### [facility] [address] [place], [place] [address]. [place], [address] CBC W/ AUTO DIFF Collected: 09/01/2017 Status: F Source: [facility] 10:00 AM [facility] REPOSITORY TYPE CODE TESTS RESULT OUT OF RANGE REFERENCE UNITS LAB 15529913(L 3.6-11.0 E3/mcL OINC) Normal WBC 3.9 LAB 36987818(L 3.90-5.40 E6/mcL OINC) Normal RBC 4.47 LAB 66020626(L 12.0-16.0 G/DL OINC) Normal Hgb 14.4 LAB 66053943(L 36.0-48.0 % OINC) Normal Hct 42.1 LAB 41471488(L 11.5-14.5 % OINC) Normal RDW 13.5 LAB 08982549(L 27.0-31.0 pg OINC) High MCH 32.1 LAB 65071159(L 33.0-37.0 G/DL OINC) Normal MCHC 34.1 LAB 54572403(L 78.0-100.0 fL OINC) Normal MCV 94.1 LAB 59629086(L 7.4-11.0 fL OINC) Normal MPV 7.6 LAB 97272799(L 130-400 E3/mcL OINC) Normal Platelet 249 Performed By: #### [id number] #### EVE NunezHembertha [address] [place] [address] AUTO DIFF Collected: 09/01/2017 Status: F Source: [facility] 10:00 AM [facility] REPOSITORY Order Comment: Order Added by Discern Expert. TYPE CODE TESTS RESULT OUT OF RANGE REFERENCE UNITS LAB [id number](L 37.0-75.0 % OINC) Normal Neutro Auto 48.3 LAB 10115823(L 20.0-55.0 % OINC) Normal Lymph Auto 41.0 LAB 16106051(L 0.0-10.0 % OINC) Normal [place] Auto 7.4 LAB 42794019(L 0.0-11.0 % OINC) Normal Eos Auto 2.2 LAB 17762374(L 0.0-2.0 % OINC) Normal Basophil Auto 1.1 LAB 63598896(L 1.4-6.5 E3/mcL OINC) Normal Neutro 1.9 Absolute LAB 42643467(L 1.2-3.4 E3/mcL OINC) Normal Lymph Absolute 1.6 LAB 34685531(L 0.0-0.7 E3/mcL OINC) Normal [place] Absolute 0.3 LAB 78424014(L 0.0-0.7 E3/mcL OINC) Normal Eos Absolute 0.1 LAB 98908137(L 0.0-0.2 E3/mcL OINC) Normal Basophil 0.0 Absolute Performed By: #### [id number] #### EVE Castillo [address] [place] [address] Collected: 09/01/2017 Status: F Source: [facility] 10:00 AM [facility] REPOSITORY TYPE CODE TESTS RESULT OUT OF RANGE REFERENCE UNITS LAB 71566385(L 70-99 mg/dL OINC) Glucose Normal Lvl 92 LAB 68748625(L 7-18 mg/dL OINC) BUN Normal 9 LAB 2812358(LO 0.6-1.3 mg/dL INC) Normal Creatinine 0.7 LAB 59020799(L 8.4-10.2 mg/dL OINC) Calcium Normal Lvl 9.3 LAB 40952897(L 136-145 mEq/L OINC) Low Sodium Lvl 135 LAB 20217509(L 3.5-5.1 mEq/L OINC) Normal Potassium Lvl 4.2 LAB 97790112(L 98-107 mEq/L OINC) Chloride Normal 107 LAB 61858503(L 24.0-30.0 mEq/L OINC) Low CO2 23.9 LAB 04208744(L 42-121 Int._Unit/ OINC) L Alk Phos Normal 52 LAB 32459746(L 0.2-1.0 mg/dL OINC) Bili Normal Total 0.6 LAB 04822942(L 3.2-5.0 G/DL OINC) Albumin Normal Lvl 3.8 LAB 58090202(L 6.4-8.3 G/DL OINC) Total Normal Protein 7.5 LAB 42198188(L 10-40 Int._Unit/ OINC) L ALT Normal 14 LAB 38957057(L 10-42 Int._Unit/ OINC) L AST Normal 17 LAB 12988953(L 5.4-30.0 ratio OINC) Normal BUN/Creat Ratio 12.9 LAB 27354683(L 2.0-4.0 G/DL OINC) Globulin Normal 3.7 LAB 17075421(L 1.1-1.9 ratio OINC) Low A/G Ratio 1.0 Performed By: #### [id number] #### EVE [employer] [facility] [place] [address] EGFR Collected: 09/01/2017 Status: F Source: [facility] 10:00 [facility] REPOSITORY Order Comment: Order added by Discern Expert. TYPE CODE TESTS RESULT OUT OF RANGE REFERENCE UNITS LAB 70768020(LO mL/min/1.73 INC) m2 Normal eGFR >60 LAB 52015490(LO mL/min/1.73 INC) m2 Normal eGFR AA >60 Performed By: #### [id number] #### EVE [employer] [place] [address] CRP Collected: 09/01/2017 Status: F Source: [facility] 10:00 [facility] REPOSITORY TYPE CODE TESTS RESULT OUT OF RANGE REFERENCE UNITS LAB 60758258(LO 0.00-0.75 mg/dL INC) Normal CRP <0.50 Performed By: #### [id number] #### EVE [employer] [address] [place] [address] SED RATE AUTOMATED Collected: 09/01/2017 Status: F Source: [facility] 10:00 [facility] REPOSITORY TYPE CODE TESTS RESULT OUT OF RANGE REFERENCE UNITS LAB 37484165(L mm/hr OINC) Sed Normal Rate Automated 31 Result Comment: AGE-SPECIFIC REFERENCE RANGES FOR SEDIMENTATION RATE AUTOMATED REFERENCE RANGE - MM/HR AGE MEN WOMEN 0-2 0-2 - PUBERTY 3-13 3-13 PUBERTY - 50 YRS 0-15 0-20 > 50 YRS 0-20 0-30 Performed By: ####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
== END ==
PROVIDERS: Family Provider Nurse Practitioner Family; PCP Nurse Practitioner Family; Referring Provider Obstetrics & Gynecology; Visit Provider Obstetrics & Gynecology
DX: Z01.818 Encounter for other preprocedural examination (principal)
CPT/HCPCS: 36415; 84702; 85027; 85610; 85730; 86850; 86900

== ENCOUNTER 2018-08-07 17:04 | Emergency (ER) | payer MEDICAID, SELFPAY ==
[2018-08-07 17:04] VITALS: BMI 25.1
[2018-08-07 17:07] VITALS: BP 150/92; PULSE 122; RESP 16; TEMP 36.4; O2SAT 100; BMI 23.1
--- NOTE | 2018-08-07 17:22 | EKG12_ITS ---
Test Reason : PALPS Blood Pressure : / mmHG Vent. Rate : 117 BPM Atrial Rate : 117 BPM P-R Int : 124 ms QRS Dur : 078 ms QT Int : 330 ms P-R-T Axes : 047 024 049 degrees QTc Int : 460 ms Sinus tachycardia Poor R wave progression Confirmed by FABRICIO WALTON, MEMO ([id number]), photographic editor IGOR CORTES ([id number]) on 08/09/2018 1:30:26 PM Referred By: MARQUITA Confirmed By:MEMO REGALADO MD
--- NOTE | 2018-08-07 17:22 | CT_ITS ---
STUDY: CT ABDOMEN AND PELVIS WITHOUT CONTRAST REASON FOR EXAM: Female, 43 years old. Low pelvic pain RADIATION DOSAGE (If Supplied By Facility): CTDIvol = ( 6.31 ) mGy, DLP = ( 323.40 ) mGycm TECHNIQUE: Transaxial images were obtained from the dome of the diaphragm to the symphysis pubis without oral contrast, and without intravenous contrast. Sagittal and coronal images were reconstructed. Individualized dose optimization techniques were used for this CT. COMPARISON: November 28, 2017 CT scan abdomen and pelvis FINDINGS: The visualized lung bases are unremarkable. The visualized portions of the heart are within normal limits. Normal liver. Normal gallbladder and extrahepatic biliary system. Normal spleen. Normal pancreas. Normal bilateral adrenal glands. Normal right kidney. Normal left kidney. Normal visualized stomach. There mildly distended loops of small bowel. There are a few diverticula present without visualized diverticulitis. The appendix is visualized and appears normal. Aorta is partially calcified. Normal inferior vena cava. A few nonspecific stable subcentimeter mesenteric and retroperitoneal lymph nodes appear There is thickening of the bladder wall up to 8.4 mm. There is a left ovarian cyst measuring 2.1 x 1.6 cm. Areas right ovarian cyst measuring 1.5 cm. The Uterus is normal size. Normal abdominal wall. There is a broad left lateral disc bulge with moderate left neural from narrowing mild central stenosis. At L5-S1 there is a broad disc protrusion mild to moderate neural foraminal narrowing no significant central stenosis. CT/Abdomen/Pelvis without Cont IMPRESSION: Small bilateral ovarian cysts. Consider follow-up pelvic ultrasound. Thickening of the bladder wall could consider cystitis. Moderate constipation diverticulosis no evidence of diverticulitis. Nonspecific mildly distended loops of small bowel. Consider mild ileus. No evidence of renal ureteral bladder calculi. No evidence of appendicitis. Electronically Signed: Michelle Rodney MD at 19:24 EST Tel , Service support ,
--- NOTE | 2018-08-07 17:26 | ED.DCSUM_ITS ---
- ER Visit Summary Date of Service: 08/07/18 Chief Complaint: [Hypoglycemia] History of Present Illness: The patient is a 43 F [presents the emergency department with complaint of low blood sugar today. Patient states that she is not been feeling well for 2-3 days with some dysuria and some pressure in her lower abdomen. Patient today was at her daughter's home and started feeling some blurred vision and feeling achy as well as numbness and tingling in her fingers and felt like her heart was racing. Patient checked her blood sugar because she has history of low blood sugar from time to time and noted that it was 62. Patient denies any cough or fever. She has had no nausea or vomiting. Patient denies any diarrhea. Patient has not had any change in medications.] Physical Examination: [HEENT-PERRLA, EOMI. Cranial nerves II through XII grossly intact. TMs clear. Mucous membranes moist. No adenopathy. Cardiovascular-regular and tachycardic. No murmurs auscultated. Lungs-clear to auscultation, chest wall stable without crepitus or subcu emphysema Abdomen-normoactive bowel sounds, soft. Patient has tenderness diffusely over the lower abdomen and suprapubic area. There is some guarding. There is no rebound, rigidity, or perineal signs. Extremities-intact ?4, normal range of motion, normal pulses, atraumatic] Test Results: [EKG obtained arrival showed a sinus rhythm with a ventricular rate of 117 bpm. CBC with differential was normal. Chemistries were normal. Glucose was 97. Urinalysis was normal. HCG was negative. CT flank showed small bilateral ovarian cyst otherwise only a mild ileus and nothing else acute.] Emergency Department Course and Treatment: [On arrival patient was given Ativan 1 mg IV and she did feel improved after treatment.] Treatment Plan: [I suspect patient may have had a anxiety attack and I will write her for as needed Ativan. Patient did describe a hyperventilatory type syndrome. It is possible she may have had some mild hypoglycemia as well.] Disposition: [Discharged home in stable condition] Impression: [Hypoglycemia Anxiety] This note was generated with [employer] software. It may contain incorrect words, spelling, and punctuation that were not noted in review of the chart prior to signing ED Disposition - Plan for ED Patient: Referrals: Berta Narayanan PAPER ROLL MACHINE OPERATOR-C [Primary Care Provider] -
[2018-08-07] MEDS: LORazepam 2 MG/ML Syringe 1 MG IV (17:34)
[2018-08-07] MEDS: 0.9% Normal Saline 1,000 ML 150 ML IV (17:34)
[2018-08-07 17:52] LABS: Bedside Glucose 111 mg/dL (70-110)
[2018-08-07 17:54] LABS: Absolute Neutrophil Count 4.6 X10^3/uL (2.0-7.7); Basophil# 0.04 X10^3/uL; Basophil% 0.5 % (0-1); Eosinophil# 0.01 X10^3/uL; Eosinophils% 0.1 % (0-5); Hematocrit 43.9 % (37-47); Hemoglobin 14.4 g/dl (12.0-15.0); Lymphocyte % 31.3 % (19-41); Mean Corp Hgb Conc 32.8 g/gl (32-36); Mean Corpuscular Hgb 28.7 pg (27.0-32.0); Mean Corpuscular Volume 87.5 fL (81-99); Mean Platelet Vol. 9.6 fl (6.2-12.0); Monocyte# 0.39 X10^3/uL; Monocyte% 5.3 % (0-10); Neutrophil % 62.7 % (47-70); Platelet Count 305 K/mm3 (150-450); RBC Distribution Width SD 44.3 fl (35.1-43.9); Red Blood Count 5.02 M/mm3 (4.2-5.4); White Blood Count 7.4 K/mm3 (4.4-11.0)
[2018-08-07 17:55] LABS: POSITIVE COUNT NO; POSITIVE DIFFERENTIAL NO; POSITIVE MORPHOLOGY NO
[2018-08-07 18:01] LABS: Anion Gap 11 (5-15); BUN 4 mg/dL (7-18); BUN/Creat Ratio 5.6 RATIO (10-20); Calcium,Total 9.3 mg/dL (8.5-10.1); Chloride 107 mmol/L (98-107); Creatinine, Serum 0.72 mg/dL (0.55-1.02); EST Glomerular Filtration Rate 95 mL/min (>60); Est Glom Filt Rate - Afr Amer 115 mL/min (>60); Estimated Creatinine Clearance 88.79 ml/min; Glucose 97 mg/dL (74-106); Sodium Level 142 mmol/L (136-145)
[2018-08-07 18:19] LABS: Bacteria 0 SEEN /hpf (None Seen); Mucous, Urine 0 SEEN /hpf (<or=2+); Red Blood Cells-Urine 0 SEEN /hpf (0-5); White Blood Cells 0 SEEN /hpf (0-5)
[2018-08-07 18:26] LABS: Color, Urine Straw (Yellow); Glucose, Dipstick Normal (Normal); Ketone-Dipstick Negative (Negative); Leukocyte Esterase-Dipstick Negative /ul (Negative); Nitrite-Dipstick Negative (Negative); Occult Blood-Urine Negative /ul (Negative); Protein-Dipstick Negative (Negative); Specific Gravity, Urine 1.015 (1.002-1.030); Urine Bilirubin Dipstick Negative (Negative); Urine Clarity Clear (Clear); Urine Urobilinogen Normal (Normal)
[2018-08-07 18:31] LABS: Squamous Epithelial Cells - UA 0-5 SEEN /hpf (5-10)
[2018-08-07 18:48] LABS: Pregnancy, Serum, hCG Quali. NEGATIVE Negative (0-9 Nonpreg)
[2018-08-07 19:04] VITALS: PULSE 14
--- NOTE | 2018-08-07 19:43 | ED.DEP ---
ED Disposition - Plan for ED Patient: Instructions: ED Blood Sugar Low Non Diabetic, ED Stress React Prescriptions: Lorazepam [Ativan] 1 mg PO TID PRN #10 tab PRN Reason: Anxiety Referrals: Berta Narayanan NP-C [Primary Care Provider] - 5-7 Days
[2018-08-07 20:00] VITALS: BP 111/83; PULSE 83; RESP 16; O2SAT 100
== END 2018-08-07 20:00 | disposition home or self-care (01) ==
LOC: ED 17:26
PROVIDERS: Emergency Provider Emergency Medicine; Family Provider Nurse Practitioner Family; PCP Nurse Practitioner Family
DX: E16.2 Hypoglycemia, unspecified (principal); F41.9 Anxiety disorder, unspecified; Z72.0 Tobacco use
CPT/HCPCS: 74176; 80048; 81001; 82962; 84703; 85025; 93005; 96361; 96374; 99283; J7030

== ENCOUNTER 2018-09-18 15:30 | Emergency (ER) | payer MEDICAID, SELFPAY ==
[2018-09-18 15:31] VITALS: BP 159/88; PULSE 102; RESP 18; TEMP 36.7; O2SAT 99; BMI 24.5
--- NOTE | 2018-09-18 15:48 | CT_ITS ---
STUDY: CT BRAIN WITHOUT CONTRAST REASON FOR EXAM: Female, 43 years old. Headache, blurred vision RADIATION DOSAGE (If Supplied By Facility): CTDIvol = ( 44.99 ) mGy, DLP = ( 728.62 ) mGycm TECHNIQUE: Transaxial CT imaging of the brain was performed without administration of intravenous contrast material. Individualized dose optimization techniques were used for this CT. COMPARISON: March 04, 2018 CT scan had FINDINGS: Normal soft tissue structures. Normal calvarium. Normal size ventricles and extra-axial spaces for the patient's age. Normal white matter tracts of the cerebral hemispheres. Normal basal ganglia and thalami. Normal brainstem. Normal cerebellum. There is no intracranial hemorrhage. There are no findings of an acute ischemic infarction. Normal visualized paranasal sinuses. CT/Brain/Head without Contrast IMPRESSION: Normal unenhanced CT scan of the brain. Electronically Signed: Michelle Rodney MD at 17:21 EDT Tel , Service support ,
--- NOTE | 2018-09-18 15:51 | ED.VISSUMM ---
- ER Visit Summary Date of Service: 09/18/18 Chief Complaint: Headache History of Present Illness: The patient is a 43 F reports onset of headache about an hour after getting up this morning. She describes it as throbbing and pressure over the top of her head. She describes blurry vision from both eyes. She does report nausea. She denies any recent head injury or URI symptoms. She does report recently finishing an antibiotic for a kidney infection. She feels as if she has had chills today but no fever. She has not taken anything for her headache. Physical Examination: Pressure is 159/88, temperature 98.1, heart rate 102, respiratory rate 18 Patient sitting upright in bed in a well lit room. Lights are darkened for her comfort. Head neck examination was no obvious sign of trauma. She has no meningismus. Heart is regular rate and rhythm. Lung sounds are clear. Abdomen soft nontender. Neuro exam reveals good strength and sensation throughout with no focal deficits. Test Results: CBC and chemistry studies are unremarkable. Urinalysis normal. BG T on arrival was 82. Emergency Department Course and Treatment: Patient was given Toradol, Reglan, Benadryl, and IV fluids. She was sent for head CT which returned negative. Shortly after returning from CT patient asked for her IV to be removed and nurse did so. When test results were completed I went back to reevaluate the patient she had eloped from the emergency department. Treatment Plan: [] Disposition: Eloped from ED Impression: Cephalgia This note was generated with N[employer] dictation software. It may contain incorrect words, spelling, and punctuation that were not noted in review of the chart prior to signing ED Disposition - Plan for ED Patient: Referrals: Berta Narayanan, SVITLANA-C [Primary Care Provider] -
[2018-09-18 16:19] LABS: Bacteria 0 SEEN /hpf (None Seen); Mucous, Urine 0 SEEN /hpf (<or=2+); Red Blood Cells-Urine 0 SEEN /hpf (0-5); White Blood Cells 0 SEEN /hpf (0-5)
[2018-09-18 16:23] LABS: Color, Urine Yellow (Yellow); Glucose, Dipstick Normal (Normal); Ketone-Dipstick Negative (Negative); Leukocyte Esterase-Dipstick Negative /ul (Negative); Nitrite-Dipstick Negative (Negative); Occult Blood-Urine Negative /ul (Negative); Protein-Dipstick Negative (Negative); Urine Bilirubin Dipstick Negative (Negative); Urine Clarity Clear (Clear); Urine Urobilinogen Normal (Normal)
[2018-09-18 16:30] LABS: Bedside Glucose 82 mg/dL (70-110)
[2018-09-18 16:30] LABS: Squamous Epithelial Cells - UA 0-5 SEEN /hpf (5-10)
[2018-09-18 16:31] LABS: Absolute Lymphocyte Count 2.34 X10^3/ul (0.83-4.51); Absolute Neutrophil Count 5.9 X10^3/uL (2.0-7.7); Basophil# 0.03 X10^3/uL; Basophil% 0.3 % (0-1); Eosinophil# 0.03 X10^3/uL; Eosinophils% 0.3 % (0-5); Hemoglobin 13.3 g/dl (12.0-15.0); Lymphocyte # 2.34 X10^3/ul (4.0); Lymphocyte % 27.3 % (19-41); Mean Corp Hgb Conc 33.3 g/gl (32-36); Mean Corpuscular Volume 87.1 fL (81-99); Mean Platelet Vol. 8.9 fl (6.2-12.0); Monocyte# 0.31 X10^3/uL; Monocyte% 3.6 % (0-10); Neutrophil # 5.86 X10^3/uL (2.7-7.7); Neutrophil % 68.4 % (47-70); POSITIVE COUNT NO; POSITIVE DIFFERENTIAL NO; POSITIVE MORPHOLOGY NO; Platelet Count 305 K/mm3 (150-450); RBC Distribution Width CV 16.4 % (11.6-14.6); RBC Distribution Width SD 52.2 fl (35.1-43.9); Red Blood Count 4.59 M/mm3 (4.2-5.4); White Blood Count 8.6 K/mm3 (4.4-11.0)
[2018-09-18] MEDS: Metoclopramide 10 MG/2 ML Vial IV (16:31)
[2018-09-18] MEDS: 0.9% Normal Saline 1,000 ML 1000 ML IV (16:31)
[2018-09-18] MEDS: Ketorolac 30 MG/ML Syringe IV (16:31)
[2018-09-18] MEDS: DiphenhydrAMINE 50 MG/ML Syringe 25 MG IV (16:31)
[2018-09-18 16:39] LABS: Anion Gap 10 (5-15); BUN 6 mg/dL (7-18); Calcium,Total 8.6 mg/dL (8.5-10.1); Chloride 110 mmol/L (98-107); Creatinine, Serum 0.67 mg/dL (0.55-1.02); EST Glomerular Filtration Rate 104 mL/min (>60); Est Glom Filt Rate - Afr Amer 125 mL/min (>60); Estimated Creatinine Clearance 95.42 ml/min; Glucose 93 mg/dL (74-106); Potassium 3.9 mmol/L (3.5-5.1); Sodium Level 144 mmol/L (136-145)
--- NOTE | 2018-09-18 17:02 | ED.RN ---
PT REQUESTED TO REMOVE IV, PT WAS UPSET IT HURTS IV WAS PATENT AND REMOVED PER PT'S REQUEST. DR. SUTTON INFORMED OF SAME.
[2018-09-18 17:09] LABS: Pregnancy, Serum, hCG Quali. NEGATIVE Negative (0-9 Nonpreg)
--- NOTE | 2018-09-18 17:58 | ED.RN ---
PT LEFT WITHOUT DISCHARGE INSTRUCTIONS.
== END 2018-09-18 18:00 | disposition home or self-care (01) ==
LOC: ED 15:53
PROVIDERS: Emergency Provider Emergency Medicine; Family Provider Nurse Practitioner Family; PCP Nurse Practitioner Family
DX: R51 Headache (principal); I10 Essential (primary) hypertension; Z87.442 Personal history of urinary calculi; Z72.0 Tobacco use
CPT/HCPCS: 70450; 80048; 81001; 82962; 84703; 85025; 96361; 96374; 96375; 99284; J7030; A4216

== ENCOUNTER 2018-12-17 15:06 | Emergency (ER) | payer MEDICAID, SELFPAY ==
[2018-12-17 15:07] VITALS: BP 120/74; PULSE 100; RESP 18; TEMP 36.4; O2SAT 98; BMI 23.2
--- NOTE | 2018-12-17 15:20 | CT_ITS ---
STUDY: CT ABDOMEN AND PELVIS WITHOUT CONTRAST REASON FOR EXAM: Female, 43 years old. Right lower quadrant pain RADIATION DOSAGE (If Supplied By Facility): DLP = ( 310.32 ) mGycm TECHNIQUE: Transaxial images were obtained from the dome of the diaphragm to the symphysis pubis without oral contrast, and without intravenous contrast. Sagittal and coronal images were reconstructed. Individualized dose optimization techniques were used for this CT. COMPARISON: CT abdomen pelvis August 07, 2018 FINDINGS: Evaluation of the abdominal viscera is limited in the absence of intravenous contrast. The visualized lung bases are clear. The visualized portions of the heart and pericardium are within normal limits. There are no calcified gallstones present. The liver demonstrates an unremarkable unenhanced appearance. The spleen is normal in size. The pancreas demonstrates an unremarkable unenhanced appearance. The adrenal glands are within normal limits. There are no obstructing renal stones. There is no hydronephrosis. Normal visualized stomach. There is no bowel obstruction or inflammation. The appendix is normal. The aorta is normal in caliber. There is no abdominal or pelvic free air, free fluid, fluid collection or lymphadenopathy. There are no destructive osseous lesions. CT/Abdomen/Pelvis without Cont IMPRESSION: No acute abdominal or pelvic pathology demonstrated on this noncontrast CT. Normal appendix. Electronically Signed: Caleb Hahn, at 17:08 EDT Tel , Service support ,
--- NOTE | 2018-12-17 15:21 | ED.VISSUMM ---
- ER Visit Summary Date of Service: 12/17/18 Chief Complaint: [Abdominal pain] History of Present Illness: The patient is a 43 F [present to the emergency department complaint of abdominal pain that started this morning around 6 AM. The pain came on suddenly and woke her from sleep. Patient states the pain initially was around her bellybutton now seems to be more in the right lower quadrant. Patient has had history of kidney stones in the past and ovarian cysts but she is not sure if this is the same kind of discomfort. Patient states the discomfort is continuous and has a dull ache that is intermittently sharp and stabbing. She currently rates it an 8 out of 10. Patient has had 2 episodes of vomiting associated with it. She denies any diarrhea. She denies any blood in her stool or black tarry stool. Patient has not had any fevers. Patient does complain of urinary frequency however she denies any dysuria. Patient also describes a lot of pressure in the lower abdomen. Patient also with history of hypertension and high cholesterol.] Physical Examination: HEENT-PERRLA, EOMI. Cranial nerves II through XII grossly intact. TMs clear. Mucous membranes moist. No adenopathy. Cardiovascular-regular rate and rhythm without murmur or ectopy Lungs-clear to auscultation, chest wall stable without crepitus or subcu emphysema Abdomen-normoactive bowel sounds, soft. Patient has tenderness palpation over right lower quadrant with some guarding. There is no rebound, rigidity, cranial signs. No masses palpated. No significant CVA tenderness on exam. Extremities-intact ?4, normal range of motion, normal pulses, atraumatic [] Test Results: [CBC with this shortness of white count 6.3, hemoglobin 12, hematocrit 36, platelets 228. Chemistries unremarkable. LFTs were unremarkable. Urinalysis was positive for 500 leukocyte esterase and greater than [address] flank showed nothing acute.] Emergency Department Course and Treatment: [Patient was medicated with morphine and Zofran initially. Patient had to be remedicated with morphine 4 mg IV. Patient started on Rocephin 1 g IV. Patient was given Azo p.o.] Treatment Plan: [We started on Bactrim and Pyridium. Patient will be given a few [place] for severe pain. Patient advised to follow-up with primary care physician within the next 2 to 3 days. Patient advised to return if worsening pain, persistent vomiting, dehydration, high fevers, or conditions worsen anyway.] Disposition: [Discharged home in stable condition Impression: [Urinary tract infection] This note was generated with [employer] dictation software. It may contain incorrect words, spelling, and punctuation that were not noted in review of the chart prior to signing ED Disposition - Plan for ED Patient: Referrals: Berta Narayanan, [employer]-C [Primary Care Provider] -
[2018-12-17] MEDS: Ondansetron 4 MG/2 ML Vial IV (15:50)
[2018-12-17] MEDS: 0.9% Normal Saline 1,000 ML 125 ML IV (15:50)
[2018-12-17] MEDS: Ketorolac 30 MG/ML Syringe IV (15:52)
[2018-12-17] MEDS: Morphine 4 MG/ML Syringe IV ×2 (15:53→16:57)
[2018-12-17 15:55] LABS: Absolute Lymphocyte Count 2.02 X10^3/ul (0.83-4.51); Absolute Neutrophil Count 3.9 X10^3/uL (2.0-7.7); Basophil# 0.01 X10^3/uL; Basophil% 0.2 % (0-1); Eosinophils% 1.6 % (0-5); Hematocrit 36.2 % (37-47); Hemoglobin 12.2 g/dl (12.0-15.0); Lymphocyte # 2.02 X10^3/ul (4.0); Lymphocyte % 32.1 % (19-41); Mean Corp Hgb Conc 33.7 g/gl (32-36); Mean Corpuscular Hgb 27.4 pg (27.0-32.0); Mean Corpuscular Volume 81.2 fL (81-99); Mean Platelet Vol. 10.2 fl (6.2-12.0); Monocyte# 0.28 X10^3/uL; Monocyte% 4.4 % (0-10); Neutrophil # 3.89 X10^3/uL (2.7-7.7); Neutrophil % 61.7 % (47-70); Platelet Count 228 K/mm3 (150-450); RBC Distribution Width CV 16.4 % (11.6-14.6); RBC Distribution Width SD 48.1 fl (35.1-43.9); Red Blood Count 4.46 M/mm3 (4.2-5.4); White Blood Count 6.3 K/mm3 (4.4-11.0)
[2018-12-17 16:01] LABS: POSITIVE COUNT NO; POSITIVE DIFFERENTIAL NO; POSITIVE MORPHOLOGY NO
[2018-12-17 16:11] LABS: ALB/GLOB Ratio 0.8 RATIO (0.9-2.4); AST(SGOT) 15 U/L (15-37); Alanine Aminotransfer ALT/SGPT 11 U/L (13-56); Albumin, Serum 3.1 g/dL (3.2-5.0); Alkaline Phosphatase 67 U/L (45-117); Anion Gap 6 (5-15); BUN 4 mg/dL (7-18); Calcium,Total 8.6 mg/dL (8.5-10.1); Chloride 106 mmol/L (98-107); Creatinine, Serum 0.67 mg/dL (0.55-1.02); EST Glomerular Filtration Rate 103 mL/min (>60); Est Glom Filt Rate - Afr Amer 125 mL/min (>60); Estimated Creatinine Clearance 95.42 ml/min; Globulin 3.8 g/dL (2.2-4.2); Glucose 130 mg/dL (74-106); Potassium 3.8 mmol/L (3.5-5.1); Protein, Total 6.9 g/dL (6.4-8.2); Sodium Level 135 mmol/L (136-145)
[2018-12-17 16:11] LABS: Bacteria 0 SEEN /hpf (None Seen); Mucous, Urine 0 SEEN /hpf (<or=2+); Red Blood Cells-Urine 0 SEEN /hpf (0-5)
[2018-12-17 16:22] LABS: Lactic Acid 1.6 mmol/L (0.4-2.0)
[2018-12-17 16:32] LABS: Internal QC Validated? YES +Cl - CLEAR BKGD; Pregnancy, Serum, hCG Quali. NEGATIVE Negative
[2018-12-17 16:38] LABS: Color, Urine Yellow (Yellow); Glucose, Dipstick Normal (Normal); Ketone-Dipstick Negative (Negative); Leukocyte Esterase-Dipstick 500 /ul (Negative); Nitrite-Dipstick Negative (Negative); Occult Blood-Urine 10 /ul (Negative); Protein-Dipstick Negative (Negative); Specific Gravity, Urine 1.015 (1.002-1.030); Urine Bilirubin Dipstick Negative (Negative); Urine Clarity Cloudy (Clear); Urine Urobilinogen Normal (Normal)
[2018-12-17 16:39] LABS: White Blood Cells >100 SEEN /hpf (0-5)
[2018-12-17 16:40] LABS: Squamous Epithelial Cells - UA 0-5 SEEN /hpf (5-10)
[2018-12-17 17:01] VITALS: BP 110/66; PULSE 73; RESP 18; TEMP 36.7; O2SAT 100
--- NOTE | 2018-12-17 17:29 | ED.DEP ---
ED Disposition - Plan for ED Patient: Instructions: Bladder Infection, Female (Adult) Prescriptions: Smz/Tmp Ds [Bactrim Ds] 1 tab PO BID #10 tab Prescription Printed Hydrocodone Bitart/Apap 5-325 [[place] 5MG-325MG] 1 tab PO Q4H PRN PRN 2 Days #10 tab PRN Reason: Pain Prescription Printed Phenazopyridine HCl [Pyridium] 200 mg PO BID PRN PRN #10 tab PRN Reason: Pain Prescription Printed Referrals: Berta Narayanan NP-C [Primary Care Provider] - 3-5 Days
[2018-12-17] MEDS: Phenazopyridine 95 MG Tablet 190 MG PO (17:40)
[2018-12-17 17:42] VITALS: PULSE 72; RESP 18; O2SAT 97
== END 2018-12-17 17:44 | disposition home or self-care (01) ==
LOC: ED 15:54
PROVIDERS: Emergency Provider Emergency Medicine; Family Provider Nurse Practitioner Family; PCP Nurse Practitioner Family
DX: N39.0 Urinary tract infection, site not specified (principal); I10 Essential (primary) hypertension; Z72.0 Tobacco use; Z87.442 Personal history of urinary calculi; Z79.899 Other long term (current) drug therapy
CPT/HCPCS: 74176; 80053; 81001; 83605; 84703; 85025; 87086; 87088; 96361; 96374; 96375; 96376; 99285; J7030; A4216; J2405

== ENCOUNTER 2021-08-30 12:51 | Emergency (ER) | payer OTHER, SELFPAY ==
[2021-08-30 12:52] VITALS: BP 121/71; PULSE 72; RESP 16; TEMP 36.5; O2SAT 95; BMI 24.6
--- NOTE | 2021-08-30 13:33 | EKG12_ITS ---
Test Reason : Blood Pressure : / mmHG Vent. Rate : 063 BPM Atrial Rate : 063 BPM P-R Int : 134 ms QRS Dur : 092 ms QT Int : 452 ms P-R-T Axes : 022 026 058 degrees QTc Int : 462 ms Normal sinus rhythm Low voltage QRS Confirmed by FABRICIO WALTON, MEMO ([id number]), editor map SONNY YUEN ([id number]) on 09/02/2021 9:59:05 AM Referred By: HERMAN Confirmed By:MEMO REGALADO MD
--- NOTE | 2021-08-30 13:34 | EDS_ITS ---
HPI History of Present Illness Chief Complaint: Dizziness Informant: patient Onset/Context/Timing Onset: Today Current Severity: Mild Maximum Severity: Moderate Narrative Narrative: Patient presents secondary to palpitations and vision change. Patient states that when she came back in her office after eating lunch her vision looked as if she was looking through a kaleidoscope with a rainbow of colors. She took the elevator upstairs and went to the restroom. She did not notice anything in her eyes and was rubbing her eyes but it did not clear. Shortly after this she started noticing her heart racing and felt as if her blood pressure was high. She had the nurse check her vital signs and her pulse rate was noted to be 120 with a blood pressure of 178/80. Patient states she then started feeling cold and clammy. EMS was called. Patient states as EMS was called she started feeling better. She does report a history of hypertension but states has been off her medications for the last 8 to 12 months because her blood pressures were dropping too low. [facility] Medical History Hypertension Home Medications lisinopril 10 mg PO DAILY 07/24/17 [History Last Taken 03/04/18] ergocalciferol (vitamin D2) [Vitamin D2] 50,000 unit PO MO 11/08/17 [History Last Taken 02/26/18] omega-3 fatty acids-fish oil [Fish Oil] 2 ea PO DAILY 11/08/17 [History Last Taken 03/03/18] phenazopyridine 200 mg PO BID PRN PRN #10 tab 12/17/18 [Rx Last Taken Unknown] sulfamethoxazole-trimethoprim 1 tab PO BID #10 tab 12/17/18 [Rx Last Taken Unknown] potassium chloride 20 meq PO BID #6 tab 08/30/21 [Rx Last Taken Unknown] Allergy/AdvReac Type Severity Reaction Status Date / Time Penicillins Allergy Hives Verified 12/17/18 15:09 Social History Smoking Status: Smoker, status unknown tobacco type: cigarettes ROS ROS ED Constitutional Constitutional ED: Denies chills or fever(s) Eyes Eyes: Reports change in vision ENT ENT ED: Denies sore throat Cardiovascular Cardiovascular: Reports palpitations and racing heartbeat; Denies chest pain Respiratory/Chest Respiratory/Chest: Denies cough or dyspnea Gastrointestinal Gastrointestinal: Denies abdominal pain, nausea or vomiting Genitourinary Genitourinary ED: Denies dysuria Musculoskeletal Musculoskeletal: Denies back pain or neck pain Integumentary Denies rash Neurologic Neurologic: Denies headache(s) or weakness Psychiatric Psychiatric: Reports anxiety Allergic/Immunologic Allergic/Immunologic ED: Denies urticaria EXAM Physical Exam Const Vital Signs: 08/30/21 12:52 08/30/21 14:47 Temperature 97.7 F L Temperature Source Temporal Pulse Rate 72 93 Respiratory Rate 16 16 Blood Pressure 121/71 H 100/77 Blood Pressure Mean 87 84 Pulse Ox 95 95 Oxygen Delivery Method Room Air Room Air Positive well nourished and well developed General Appearance ED: well developed HEENT Reports normocephalic and head/scalp atraumatic Eyes PERRL and EOMs intact bilaterally Neck supple Chest Wall inspection of chest normal and palpation of chest normal Resp normal respiratory effort and clear to auscultation bilaterally Cardio regular rate and regular rhythm GI normal to inspection, nondistended, normoactive bowel sounds Palpation: soft Back/Spine no CVA tenderness Extremity normal to inspection Neuro oriented x3 and no sensory deficits noted Sensorium / Orientation: alert Motor Exam: strength 5/5 throughout Psych mental status grossly normal Skin no rashes or lesions noted MDM MDM MDM Narrative Medical decision making narrative: Patient placed on carry in worker. EKG and lab work obtained. Lab Data Attestation: I reviewed the patient's lab results. Labs: Laboratory Results - last 24 hr 08/30/21 08/30/21 12:40 12:40 WBC 5.7 RBC 4.30 Hgb 10.5 L Hct 34.6 L MCV 80.5 L MCH 24.4 L MCHC 30.3 L RDW Std Deviation 48.9 H RDW Coeff of [place] 16.8 H Plt Count 240 MPV 10.2 Immature Gran % (Auto) 0.200 Neut % (Auto) 45.1 L Lymph % (Auto) 48.8 H [place] % (Auto) 4.4 Eos % (Auto) 1.2 Baso % (Auto) 0.3 Absolute Neuts (auto) 2.6 Absolute Lymphs (auto) 2.80 Nucleated RBC % 0 Sodium 136 Potassium 3.4 L Chloride 104 Carbon Dioxide 28.0 Anion Gap 4 L BUN 7 Creatinine 0.85 Estim Creat Clear Calc 72.93 Est GFR (MDRD) Af Amer 93 Est GFR (MDRD) Non-Af 77 BUN/Creatinine Ratio 8.2 L Glucose 113 H Calcium 8.7 TSH 1.80 EKG Initial EKG: Attestation: I personally reviewed and interpreted this EKG as follows: Interpretation: Sinus Rhythm (Sinus at 63 with no acute ischemia.) Treatment and Re-Evaluation Narrative: Patient's blood pressure has been well controlled while here in the emergency room. Lab work reviewed. Potassium is slightly low at 3.4. EKG is unremarkable. I believe patient symptoms are likely secondary to anxiety/panic attack when she had the vision changes after being out in the sun. Symptoms are not consistent with stroke or other acute neurologic event. Patient will be given potassium replacement at home the next couple days. She will spot check h er blood pressure over the next week or 2 to ensure it is maintaining under good control. Return instructions provided. Discharge Plan Triage Chief Complaint: Dizziness ED Provider: Marianne Iglesias Dx/Rx/DC Orders Clinical Impression: Palpitations, Hypokalemia Instructions: ED Hypokalemia, ED Palpitations Prescriptions: New potassium chloride 20 mEq tablet extended release 20 meq PO BID Qty: 6 RF: 0 No Action lisinopril 20 tablet 10 mg PO DAILY RF: 0 ergocalciferol (vitamin D2) [Vitamin D2] 50,000 UNIT capsule 50,000 unit PO MO RF: 0 omega-3 fatty acids-fish oil [Fish Oil] 1 EACH capsule 2 ea PO DAILY RF: 0 phenazopyridine 200 MG tablet 200 mg PO BID PRN PRN (Reason: Pain) Qty: 10 RF: 0 sulfamethoxazole-trimethoprim 1 TABLET tablet 1 tab PO BID Qty: 10 RF: 0 Primary Care Provider: Berta Narayanan NP Referrals: Berta Narayanan NP, [employer]-C [Primary Care Provider] - 1-2 Weeks Disposition Disposition: Home, Self Care
[2021-08-30 13:44] LABS: Absolute Neutrophil Count 2.6 X10^3/uL (2.0-7.7); Basophil# 0.02 X10^3/uL; Basophil% 0.3 % (0-1); Eosinophil# 0.07 X10^3/uL; Eosinophils% 1.2 % (0-5); Hematocrit 34.6 % (37-47); Hemoglobin 10.5 g/dL (12.0-15.0); Lymphocyte % 48.8 % (19-41); Mean Corp Hgb Conc 30.3 g/dL (32-36); Mean Corpuscular Hgb 24.4 pg (27.0-32.0); Mean Corpuscular Volume 80.5 fL (81-99); Mean Platelet Vol. 10.2 fl (6.2-12.0); Monocyte# 0.25 X10^3/uL; Monocyte% 4.4 % (0-10); NRBC Flagged by Analyzer 0 % (0-5); Neutrophil # 2.59 X10^3/uL (2.7-7.7); Neutrophil % 45.1 % (47-70); Platelet Count 240 K/mm3 (150-450); RBC Distribution Width CV 16.8 % (11.6-14.6); RBC Distribution Width SD 48.9 fl (35.1-43.9); White Blood Count 5.7 K/mm3 (4.4-11.0)
[2021-08-30 14:03] LABS: Anion Gap 4 (5-15); BUN 7 mg/dL (7-18); BUN/Creat Ratio 8.2 RATIO (10-20); Calcium,Total 8.7 mg/dL (8.5-10.1); Chloride 104 mmol/L (98-107); Creatinine, Serum 0.85 mg/dL (0.55-1.02); EST Glomerular Filtration Rate 77 mL/min (>60); Est Glom Filt Rate - Afr Amer 93 mL/min (>60); Estimated Creatinine Clearance 72.93 ml/min; Glucose 113 mg/dL (74-106); Potassium 3.4 mmol/L (3.5-5.1); Sodium Level 136 mmol/L (136-145)
[2021-08-30] MEDS: Potassium Chloride Oral Tablet 20 MEQ 40 MEQ PO (14:46)
[2021-08-30 14:47] VITALS: BP 100/77; PULSE 93; RESP 16; O2SAT 95
== END 2021-08-30 15:00 | disposition home or self-care (01) ==
PROVIDERS: Emergency Provider Emergency Medicine; PCP Nurse Practitioner Family; Visit Provider Emergency Medicine
DX: R42 Dizziness and giddiness (principal); E87.6 Hypokalemia; H53.9 Unspecified visual disturbance; I10 Essential (primary) hypertension; R00.2 Palpitations; Z79.899 Other long term (current) drug therapy; F17.210 Nicotine dependence, cigarettes, uncomplicated
CPT/HCPCS: 80048; 84443; 85025; 93005; 99285

== ENCOUNTER → 2021-11-10 | Outpatient (CLI) | payer OTHER, SELFPAY ==
[2021-11-10 12:17] LABS: Anion Gap 6 (5-15); BUN 5 mg/dL (7-18); Calcium,Total 9.1 mg/dL (8.5-10.1); Chloride 107 mmol/L (98-107); Cholesterol 256 mg/dL (200); Creatinine, Serum 0.83 mg/dL (0.55-1.02); EST Glomerular Filtration Rate 80 mL/min (>60); Est Glom Filt Rate - Afr Amer 96 mL/min (>60); Glucose 91 mg/dL (74-106); High Density Lipoprotein 38 mg/dL; Potassium 3.3 mmol/L (3.5-5.1); Sodium Level 139 mmol/L (136-145); Triglycerides 141 mg/dL; Very Low Density Lipoprotein 28 mg/dL (5-40)
== END | disposition home or self-care (01) ==
LOC: LAB 10:38
PROVIDERS: PCP Nurse Practitioner Family; Referring Provider Internal Medicine Cardiovascular Disease; Visit Provider Internal Medicine Cardiovascular Disease
DX: R09.89 Other specified symptoms and signs involving the circulatory and respiratory systems (principal); R00.2 Palpitations
CPT/HCPCS: 36415; 80048; 80061

== ENCOUNTER → 2021-12-06 | Outpatient (CLI) | payer OTHER, SELFPAY ==
--- NOTE | 2021-12-06 12:57 | ECHOD_ITS ---
Reason For Study: Arrhythmia Procedure This was a 2D Doppler, Color Flow transthoracic echocardiogram. Bubble study performed. Exam performed in department. Left Ventricle Normal LV size. Left ventricular systolic function is normal. The estimated ejection fraction is 60 %. No regional wall motion abnormalities noted. Right Ventricle Normal RV size. Normal systolic function. Atria Normal left atrium. Normal right atrium. Bubble contrast study negative for right to left interatrial shunt. Mitral Valve Normal mitral valve. Mild (1+) eccentric mitral valve insufficiency. Tricuspid Valve Normal tricuspid valve. Mild tricuspid valve insufficiency. Aortic Valve Normal aortic valve. Trisinus/trileaflet aortic valve. Pulmonic Valve Normal pulmonic valve. Great Vessels Normal aortic root. The pulmonary artery is normal size. Normal inferior vena cava. Pericardium/Pleural No pericardial effusion. Medication 20 gauge I.V. with prn adaptor inserted into right arm. Performed a rapid injection of agitated mix of 9 cc saline and 1cc air to assess for atrial septal defect. MMode/2D Measurements & Calculations LVIDd: 5.0 cm IVSd: 0.73 cm Ao root diam: 2.8 cm LVIDs: 3.7 cm LVPWd: 0.91 cm LA dimension: 3.1 cm RVDd: 2.6 cm FS: 24.8 % LAV(MOD-bp): 31.1 ml LA A4 area: 12.4 cm2 RA A4 area: 11.5 cm2 LAV(MOD-bp) Indexed: 18.6 ml/m2 LAV(MOD-sp2): 31.9 ml LAV(MOD-sp4): 25.2 ml Time Measurements MV dec time: 0.33 sec Doppler Measurements & Calculations MV E max jude: 109.1 cm/sec Lat Peak E' Jude: 13.6 cm/sec Med Peak E' Jude: 12.8 cm/sec MV A max jude: 99.3 cm/sec E/E' lat: 8.0 E/E' med: 8.5 MV E/A: 1.1 MV V2 max: 129.0 cm/sec MV P1/2t max jude: 128.1 cm/sec Ao V2 max: 114.3 cm/sec MV max P.7 mmHg MV P1/2t: 115.6 msec Ao max P.2 mmHg MV V2 mean: 70.2 cm/sec MV dec slope: 324.4 cm/sec2 MV mean P.3 mmHg MV V2 VTI: 37.8 cm MVA(P1/2t): 1.9 cm2 LV V1 max: 96.8 cm/sec MR max jude: 506.7 cm/sec PA V2 max: 114.6 cm/sec LV V1 max P.7 mmHg MR max P.7 mmHg MR mean jude: 391.8 cm/sec MR mean P.4 mmHg MR VTI: 137.4 cm TR max jude: 219.3 cm/sec TR max P.2 mmHg ECHO/Echo Complete Interpretation Summary Normal LV size. Left ventricular systolic function is normal. The estimated ejection fraction is 60 %. Bubble contrast study negative for right to left interatrial shunt. Ordering Physician: Lc Manuel Referring Physician: Berta Narayanan Performed By: Jeronimo Orozco RCS
== END | disposition home or self-care (01) ==
PROVIDERS: PCP Nurse Practitioner Family; Referring Provider Internal Medicine Cardiovascular Disease; Visit Provider Internal Medicine Cardiovascular Disease
DX: R09.89 Other specified symptoms and signs involving the circulatory and respiratory systems (principal); R00.9 Unspecified abnormalities of heart beat
CPT/HCPCS: 93306; A4216

== ENCOUNTER → 2021-12-08 | Outpatient (CLI) | payer OTHER, SELFPAY ==
--- NOTE | 2021-12-08 12:51 | ART_ITS ---
Reason For Study: Decreased Radial Pulse Procedure A bilateral upper extremity continuous wave Doppler with analog waveform analysis and segmental pressures. Prelim given to Karie SARAH. Left Segmental Pressures Left brachial= 72mmHg. Left forearm by way of the radial artery = 70mmHg. Left radial= 84mmHg. Left ulnar= 74mmHg. Left digit = 83 mmHg. Right Segmental Pressures Right brachial= 127mmHg. Right radial= 146mmHg. Right ulnar= 145mmHg. Right digit = 137 mmHg. Indices The right wrist-brachial index is 1.15. The right digital-brachial index is 1.08. The left wrist- brachial index is 0.66. The left digital-brachial index is 0.65. VL/Upper Extremity Arterial Study Interpretation Summary Normal right upper extremity radial and ulnar wrist brachial indices of 1.15 an d 1.14 respectively with normal triphasic Doppler waveforms Abnormal left radial and ulnar wrist brachial indices of 0.66 and 0.58 respecti vely with biphasic Doppler waveforms consistent with moderately severe disease Ordering Physician: Lc Manuel Referring Physician: Lc Manuel Performed By: Regine Chahal RDCS/RVT
== END | disposition home or self-care (01) ==
LOC: CVS 12:50
PROVIDERS: PCP Nurse Practitioner Family; Referring Provider Internal Medicine Cardiovascular Disease; Visit Provider Internal Medicine Cardiovascular Disease
DX: R09.89 Other specified symptoms and signs involving the circulatory and respiratory systems (principal)
CPT/HCPCS: 93923

== ENCOUNTER → 2022-01-03 | Outpatient (CLI) | payer OTHER, SELFPAY ==
[2022-01-03 16:02] LABS: Creatinine, Serum 0.99 mg/dL (0.55-1.02); EST Glomerular Filtration Rate 65 mL/min (>60); Est Glom Filt Rate - Afr Amer 78 mL/min (>60)
== END | disposition home or self-care (01) ==
LOC: LAB 14:26
PROVIDERS: PCP Nurse Practitioner Family; Visit Provider Surgery Trauma Surgery
DX: I77.1 Stricture of artery (principal)
CPT/HCPCS: 36415; 82565

== ENCOUNTER → 2022-01-05 | Outpatient (CLI) | payer OTHER, SELFPAY ==
--- NOTE | 2022-01-05 16:36 | CT_ITS ---
ACR Level 3 findings have been noted. An addendum which confirms receipt of the report will follow. EXAM: CT ANGIOGRAPHY CHEST WITHOUT AND WITH INTRAVENOUS CONTRAST CLINICAL INDICATION: subclavian stenosis TECHNIQUE: Helically acquired angiography images were obtained of the chest without and with intravenous contrast. This CT exam was performed using one or more of the following dose reduction techniques: automated exposure control, adjustment of the mA and/or kV according to patient size, and/or use of iterative reconstruction technique. This report was created using [employer] report generation technology. MIP reconstructed images were created and reviewed. RADIATION DOSE: CTDIvol = 6.03 mGy, DLP = 238.16 mGy-cmContrast: IV 100mL [id number]-[id number] COMPARISON: March 04, 2018. FINDINGS: PULMONARY ARTERIES: Unremarkable. Normal in caliber. No evidence of pulmonary embolism. AORTA: Minimal plaque of the aorta, no aneurysm or dissection. 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 There was only about 40% stenosis of the proximal left subclavian artery for a length of 8 mm on the prior exam in 2018, it was patent. Normal in caliber. No evidence of dissection. LUNGS AND PLEURAL SPACES: Stable small subpleural nodule in the left lower lobe, 5.5 mm. No infiltrates. No pneumothorax. HEART: Unremarkable. Heart size is normal. No pericardial effusion. No signs of right heart strain, ratio of right ventricle to left ventricle measures less than 1. MEDIASTINUM: Unremarkable. No mediastinal or hilar adenopathy. Esophagus is unremarkable. No hiatal hernia. THYROID: Unremarkable. No thyroid lesions. BONES/JOINTS: Unremarkable. No suspicious lytic or blastic abnormality. 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 There was only mild proximal left subclavian artery stenosis in 2016. Mild plaque and minimal narrowing of the proximal left CCA. Electronically Signed: Lara Collier MD at 5:40 EDT ,
== END | disposition home or self-care (01) ==
LOC: CT 16:31
PROVIDERS: PCP Nurse Practitioner Family; Visit Provider Surgery Trauma Surgery
DX: I77.1 Stricture of artery (principal); R91.1 Solitary pulmonary nodule
CPT/HCPCS: 71275; Q9967

== ENCOUNTER → 2022-01-27 | Outpatient (CLI) | payer OTHER, SELFPAY ==
--- NOTE | 2022-01-27 13:04 | CDU_ITS ---
Reason For Study: carotid stenosis Rt. Velocities/BP Lt. Velocities/BP Prox CCA 103.4/34.3 cm/sec. Prox CCA 132.1/48.6 cm/sec. Mid CCA 96.9/36.9 cm/sec. Mid CCA 115.2/27.8 cm/sec. Dist CCA 104.7/35.6 cm/sec. Dist CCA 115.2/39.5 cm/sec. Prox ICA 104.7/42.1 cm/sec. Prox ICA 121.1/37.1 cm/sec. Mid ICA 83.9/30.4 cm/sec. Mid ICA 128.4/49.9 cm/sec. Dist ICA 108.6/29.1 cm/sec. Dist ICA 132.1/53.5 cm/sec. Rt. ICA/CCA = 1.1. Lt. ICA/CCA = 1.1. Prox ECA 96.9/21.3 cm/sec. Prox ECA 115.6/22.5 cm/sec. Rt. Vert. 107.3/29.1 cm/sec. Right Extracranial There is intimal thickening but no significant atherosclerotic plaque noted in the right common carotid artery. There is heterogeneous, irregular atherosclerotic plaque noted in the right internal carotid artery. There is intimal thickening but no significant atherosclerotic plaque noted in the right external carotid artery. Antegrade flow is noted in the right vertebral artery. Left Extracranial There is intimal thickening but no significant atherosclerotic plaque noted in the left common carotid artery. There is heterogeneous, irregular atherosclerotic plaque noted in the left internal carotid artery. There is intimal thickening but no significant atherosclerotic plaque noted in the left external carotid artery. Retrograde flow noted in the left vertebral artery. Procedure Carotid Duplex 20701. This is a Carotid Duplex examination using B-mode, color flow and specral Doppler. The exam was diagnostic. Exam performed in department. VL/Carotid Duplex Ultrasound Interpretation Summary Mild (<50%) stenosis right extracranial internal carotid. Moderate (50-69%) stenosis left extracranial internal carotid. The Right vertebral is patent and antegrade. The Left vertebral flow is retrograde. Ordering Physician: Rei Bedoya Performed By: Colt Luna RVT
== END | disposition home or self-care (01) ==
LOC: CVS 13:03
PROVIDERS: PCP Nurse Practitioner Family; Visit Provider Surgery Trauma Surgery
DX: I77.1 Stricture of artery (principal); I65.22 Occlusion and stenosis of left carotid artery
CPT/HCPCS: 93880

== ENCOUNTER 2022-07-05 12:34 | Emergency (ER) | payer MEDICAID, SELFPAY ==
[2022-07-05 12:35] VITALS: BP 136/104; PULSE 53; RESP 16; TEMP 36.3; O2SAT 100; BMI 23.5
[2022-07-05 13:26] VITALS: BP 136/89; PULSE 77; RESP 11
--- NOTE | 2022-07-05 14:01 | RAD_ITS ---
STUDY: X-RAY CHEST REASON FOR EXAM: Female, 46 years old. Chest pain TECHNIQUE: Single AP portable view of the chest. COMPARISON: Comparison is made with prior study of 10/21/2015. FINDINGS: EKG electrodes are seen. The lungs are clear and expanded. There is no demonstrated pleural abnormality. Normal size heart. Normal mediastinum and yane. Normal visualized pulmonary arteries. Normal visualized aortic arch and descending thoracic aorta. Normal visualized thoracic spine. Normal visualized ribs, clavicles, and shoulders. There is no demonstrated abnormality of the visualized soft tissue structures of the upper abdomen. RAD/Chest 1 View (Portable) IMPRESSION: Normal x-ray examination of the chest. Electronically Signed: Federico Peoples MD at 14:39 EST ,
--- NOTE | 2022-07-05 14:01 | EKG12_ITS ---
Test Reason : SYNCOPE Blood Pressure : / mmHG Vent. Rate : 066 BPM Atrial Rate : 066 BPM P-R Int : 142 ms QRS Dur : 082 ms QT Int : 430 ms P-R-T Axes : 044 008 049 degrees QTc Int : 450 ms Normal sinus rhythm Normal ECG Confirmed by TEVIN WALTON, TALITA ([id number]), editorial assistant SONNY YUEN ([id number]) on 07/06/2022 2:48:42 PM Referred By: DANNY Confirmed By:TALITA ABARCA MD
[2022-07-05 14:14] LABS: Absolute Lymphocyte Count 1.65 X10^3/uL (0.83-4.51); Absolute Neutrophil Count 2.4 X10^3/uL (2.0-7.7); Basophil# 0.02 X10^3/uL; Basophil% 0.5 % (0-1); Eosinophil# 0.06 X10^3/uL; Eosinophils% 1.4 % (0-5); Hematocrit 34.4 % (37-47); Hemoglobin 10.3 g/dL (12.0-15.0); Lymphocyte # 1.65 X10^3/ul (0.83-4.51); Lymphocyte % 38.3 % (19-41); Mean Corp Hgb Conc 29.9 g/dL (32-36); Mean Corpuscular Hgb 22.3 pg (27.0-32.0); Mean Corpuscular Volume 74.5 fL (81-99); Mean Platelet Vol. 10.1 fl (6.2-12.0); Monocyte# 0.21 X10^3/uL; Monocyte% 4.9 % (0-10); NRBC Flagged by Analyzer 0 % (0-5); Neutrophil # 2.37 X10^3/uL (2.7-7.7); Neutrophil % 54.9 % (47-70); Platelet Count 265 K/mm3 (150-450); RBC Distribution Width CV 17.9 % (11.6-14.6); RBC Distribution Width SD 47.3 fl (35.1-43.9); Red Blood Count 4.62 M/mm3 (4.2-5.4); White Blood Count 4.3 K/mm3 (4.4-11.0)
--- NOTE | 2022-07-05 14:21 | EDS_ITS ---
HPI History of Present Illness Chief Complaint: Syncope Narrative Narrative: 46-year-old female presenting with an episode of syncope which happened yesterday. Patient states she had COVID in May on the . She states she recently started a job which required to get her COVID-vaccine and a week after this she actually had COVID. She states she was very rundown with COVID for weeks. She states saw her primary care physician and followed up in a week because she was feeling so poorly and they retested her for COVID and she was still positive. At that point she was tested for influenza a and B as well. Patient reports shortness of breath and generalized fatigue. She is non-smoker. Patient does report that she has some left-sided chest pressure since yesterday. PFSH PFS Medical History Anxiety Essential hypertension Hyperlipidemia Hypokalemia Moderate cervical dysplasia, histologically confirmed Occlusion of left subclavian artery Pulmonary nodules Subclavian arterial stenosis Subclavian steal syndrome Tobacco dependence Vitamin D deficiency Home Medications atorvastatin 20 mg tablet (Lipitor) 20 mg PO QHS #30 tabs 12/27/21 [Rx Last Taken Unknown] omega 1-aqe-ulr-fish oil 300 mg-1,000 mg capsule (Fish Oil) 1 cap PO DAILY 12/27/21 [History Last Taken Unknown] Allergy/AdvReac Type Severity Reaction Status Date / Time Penicillins Allergy Hives Verified 07/05/22 12:35 Luxybny-UHA-HzK Reductase AdvReac Intermediate Other Verified 07/05/22 12:35 Inhibitor Family History Father Hypertension Mother Cancer Grandfather Diabetes Heart disease Grandmother Colon cancer Dementia Breast cancer Surgical History H/O LEEP (10/2017) History of placement of ear tubes History of tonsillectomy and adenoidectomy Social History Smoking Status: Current every day smoker tobacco type: cigarettes alcohol intake: never substance use type: does not use ROS ROS ED ROS Narrative Syncopal Constitutional Constitutional ED: Denies chills or fever(s) Eyes Eyes: Denies change in vision ENT ENT ED: Denies sore throat Cardiovascular Cardiovascular: Reports chest pain; Denies palpitations Respiratory/Chest Respiratory/Chest: Reports dyspnea Gastrointestinal Gastrointestinal: Denies abdominal pain or constipation Genitourinary Genitourinary ED: Denies dysuria or hematuria Musculoskeletal Musculoskeletal: Denies arthralgias Integumentary Denies abscess or Abrasions Neurologic Neurologic: Denies headache(s) or paresthesias Psychiatric Psychiatric: Denies anxiety or depression EXAM Physical Exam Const Vital Signs: 07/05/22 12:35 07/05/22 13:26 07/05/22 13:26 Temperature 97.3 F L Temperature Source Temporal Pulse Rate 53 L 77 Pulse Rate [Lying] Pulse Rate [Sitting (for 1 minute prior to obtaining)] Pulse Rate [Standing (for 1 minute prior to obtaining)] Respiratory Rate 16 11 L Respiratory Effort Normal Non-Labored Respiratory Pattern Normal Blood Pressure 136/104 H 136/89 H Blood Pressure [Lying] Blood Pressure [Sitting (for 1 minute prior to obtaining)] Blood Pressure [Standing (for 1 minute prior to obtaining)] Blood Pressure Mean 114 104 Blood Pressure Mean [Lying] Blood Pressure Mean [Sitting (for 1 minute prior to obtaining)] Blood Pressure Mean [Standing (for 1 minute prior to obtaining)] Pulse Ox 100 Oxygen Delivery Method Room Air Room Air 07/05/22 14:25 07/05/22 15:08 07/05/22 15:31 Temperature Temperature Source Pulse Rate 54 L Pulse Rate [Lying] 60 Pulse Rate [Sitting (for 1 minute prior to obtaining)] 67 Pulse Rate [Standing (for 1 minute prior to obtaining)] 78 Respiratory Rate 12 Respiratory Effort Respiratory Pattern Blood Pressure 124/76 H Blood Pressure [Lying] 126/75 H Blood Pressure [Sitting (for 1 minute prior to obtaining)] 124/81 H Blood Pressure [Standing (for 1 minute prior to obtaining)] 124/87 H Blood Pressure Mean 92 Blood Pressure Mean [Lying] 92 Blood Pressure Mean [Sitting (for 1 minute prior to obtaining)] 95 Blood Pressure Mean [Standing (for 1 minute prior to obtaining)] 99 Pulse Ox 99 Oxygen Delivery Method Room Air Room Air Positive well nourished HEENT Reports moist mucous membranes Eyes PERRL and EOMs intact bilaterally Neck no lymphadenopathy Chest Wall inspection of chest normal and palpation of chest normal Resp normal respiratory effort and clear to auscultation bilaterally Auscultation: Negative for rales, rhonchi or wheezes Cardio regular rhythm Rate: tachycardic GI normal to inspection, nondistended, normoactive bowel sounds Extremity normal to inspection General Extremety ED: Negative for edema or tenderness General Extremity: Negative for edema Neuro oriented x3 and CN's II-XII intact bilaterally Sensorium / Orientation: alert Motor Exam: strength 5/5 throughout Psych mental status grossly normal Skin no rashes or lesions noted, no wounds and skin turgor normal MDM MDM MDM Narrative Medical decision making narrative: Patient presenting with left-sided pressure in the chest for over 24 hours. Patient states she had a syncopal episode yesterday but has not had a return of this. Patient reports she recently just came back to work after being ill and she felt off while she was working. Patient states that they checked her blood sugar and her blood pressure needs appear to be normal. Patient did not go to the emergency room yesterday. She presents today with routine complaint of chest pain and shortness of breath. Patient has not had a fever. Patient denies nausea or vomiting. I did obtain an EKG which on my interpretation sinus rhythm with a rate of 66 beats minute without sign of ischemic change or dysrhythmia. Chest x-ray my interpretation shows no acute cardiopulmonary process. And radiologist agree. Patient is PERC negative. CBC shows leukopenia with white blood cell count 4.3. Hemoglobin is 10.3 today but this is not changed since August. Platelets are normal at 265. Renal function and electrolytes are normal. High-sensitivity troponin is less than 3 after 24 hours of pain so I do not believe this is ACS. Orthostatic vital signs are normal. Patient counseled on all findings and I feel she stable for discharge home. Patient request a work note for today and tomorrow. Impression: 1. Chest pain 2. Anemia 3. Syncope Lab Data Labs: Laboratory Results - last 24 hr 07/05/22 07/05/22 13:50 13:50 WBC 4.3 L RBC 4.62 Hgb 10.3 L Hct 34.4 L MCV 74.5 L MCH 22.3 L MCHC 29.9 L RDW Std Deviation 47.3 H RDW Coeff of J[place] 17.9 H Plt Count 265 MPV 10.1 Immature Gran % (Auto) 0.000 Neut % (Auto) 54.9 Lymph % (Auto) 38.3 Holt % (Auto) 4.9 Eos % (Auto) 1.4 Baso % (Auto) 0.5 Absolute Neuts (auto) 2.4 Absolute Lymphs (auto) 1.65 Nucleated RBC % 0 Sodium 135 L Potassium 3.7 Chloride 105 Carbon Dioxide 25.0 Anion Gap 5 BUN 4 L Creatinine 0.76 Estim Creat Clear Calc 81.57 Est GFR (MDRD) Af Amer 106 Est GFR (MDRD) Non-Af 87 BUN/Creatinine Ratio 5.3 L Glucose 93 Calcium 9.0 Troponin I High Sens < 3 L Radiography Diagnostic Testing: Clinical Impression(s) from Imaging Studies Chest X-Ray 07/05/22 14:01 IMPRESSION: Normal x-ray examination of the chest. Electronically Signed: Federico Peoples MD at 14:39 EST , Discharge Plan Triage Chief Complaint: Syncope ED Provider: Erasmo Small Dx/Rx/DC Orders Prescriptions: No Action omega 0-sra-two-fish oil [Fish Oil] 300-1,000 mg capsule 1 cap PO DAILY atorvastatin [Lipitor] 20 mg tablet 20 mg PO QHS Qty: 30 0RF Primary Care Provider: Care Physician,No Primary Referrals: Berta Narayanan [employer], [employer] [Non-Staff] -
[2022-07-05] MEDS: Aspirin 81 MG TAB.CHEW 324 MG PO (14:24)
[2022-07-05 14:31] LABS: Anion Gap 5 (5-15); BUN 4 mg/dL (7-18); BUN/Creat Ratio 5.3 RATIO (10-20); Chloride 105 mmol/L (98-107); Creatinine, Serum 0.76 mg/dL (0.55-1.02); EST Glomerular Filtration Rate 87 mL/min (>60); Est Glom Filt Rate - Afr Amer 106 mL/min (>60); Estimated Creatinine Clearance 81.57 ml/min; Glucose 93 mg/dL (74-106); Potassium 3.7 mmol/L (3.5-5.1); Sodium Level 135 mmol/L (136-145); Troponin-I HS < 3 pg/mL (3.0-54.0)
[2022-07-05 15:08] VITALS: BP 124/81; BP 124/87; BP 126/75; PULSE 60; PULSE 67; PULSE 78
[2022-07-05 15:31] VITALS: BP 124/76; PULSE 54; RESP 12; O2SAT 99
[2022-07-05 17:42] VITALS: BP 124/76; PULSE 61; RESP 14; O2SAT 98
--- NOTE | 2022-07-05 17:43 | ED.RN ---
PT INSTRUCTED TO FOLLOW UP WITH VASCULAR SURGEON DR HUYNH, ALSO DISCUSSED SYNCOPAL EPISODES, WAYS TO PREVENT AND HOW TO MANAGE. PT VOICES UNDERSTANDING.
== END 2022-07-05 17:45 | disposition home or self-care (01) ==
PROVIDERS: Emergency Provider Student in an Organized Health Care Education/Training Program; Visit Provider Student in an Organized Health Care Education/Training Program
DX: R07.9 Chest pain, unspecified (principal); R55 Syncope and collapse; I10 Essential (primary) hypertension; R06.02 Shortness of breath; D64.9 Anemia, unspecified; E78.5 Hyperlipidemia, unspecified
CPT/HCPCS: 71045; 80048; 84484; 85025; 93005; 99285; J7050; A4216

== ENCOUNTER 2023-11-30 14:00 | Outpatient (CLI) | payer SELFPAY ==
[2023-11-30 14:28] LABS: Absolute Lymphocyte Count 2.98 X10^3/uL (0.83-4.51); Absolute Neutrophil Count 4.4 X10^3/uL (2.0-7.7); Basophil# 0.03 X10^3/uL; Basophil% 0.4 % (0-1); Eosinophil# 0.03 X10^3/uL; Eosinophils% 0.4 % (0-5); Hematocrit 29.5 % (37-47); Hemoglobin 8.4 g/dL (12.0-15.0); Lymphocyte # 2.98 X10^3/ul (0.83-4.51); Lymphocyte % 38.4 % (19-41); Mean Corp Hgb Conc 28.5 g/dL (32-36); Mean Corpuscular Volume 66.9 fL (81-99); Mean Platelet Vol. 9.9 fl (6.2-12.0); Monocyte# 0.35 X10^3/uL; Monocyte% 4.5 % (0-10); NRBC Flagged by Analyzer 0 % (0-5); Neutrophil # 4.36 X10^3/uL (2.7-7.7); Platelet Count 310 K/mm3 (150-450); RBC Distribution Width CV 19.4 % (11.6-14.6); RBC Distribution Width SD 44.7 fl (35.1-43.9); Red Blood Count 4.41 M/mm3 (4.2-5.4); White Blood Count 7.8 K/mm3 (4.4-11.0)
== END 2023-11-30 23:59 | disposition home or self-care (01) ==
LOC: MFPLAB 14:05
PROVIDERS: PCP Family Medicine; Visit Provider Family Medicine
DX: D64.9 Anemia, unspecified (principal)
CPT/HCPCS: 36415; 85025

== ENCOUNTER → 2024-01-12 | Outpatient (CLI) | payer SELFPAY ==
[2024-01-12 15:27] LABS: Absolute Lymphocyte Count 2.93 X10^3/uL (0.83-4.51); Basophil# 0.02 X10^3/uL; Basophil% 0.3 % (0-1); Eosinophil# 0.14 X10^3/uL; Eosinophils% 2.2 % (0-5); Hematocrit 25.9 % (37-47); Hemoglobin 7.4 g/dL (12.0-15.0); Lymphocyte # 2.93 X10^3/ul (0.83-4.51); Lymphocyte % 45.6 % (19-41); Mean Corp Hgb Conc 28.6 g/dL (32-36); Mean Corpuscular Hgb 19.1 pg (27.0-32.0); Mean Corpuscular Volume 66.8 fL (81-99); Mean Platelet Vol. 9.3 fl (6.2-12.0); Monocyte# 0.37 X10^3/uL; Monocyte% 5.8 % (0-10); NRBC Flagged by Analyzer 0 % (0-5); Neutrophil # 2.95 X10^3/uL (2.7-7.7); Neutrophil % 45.9 % (47-70); Platelet Count 244 K/mm3 (150-450); RBC Distribution Width CV 19.3 % (11.6-14.6); RBC Distribution Width SD 46.1 fl (35.1-43.9); RET-HE 19.5 pg (30-35); Red Blood Count 3.88 M/mm3 (4.2-5.4); Reticulocyte Count 1.23 % (0.5-1.5); White Blood Count 6.4 K/mm3 (4.4-11.0)
[2024-01-12 15:58] LABS: ALB/GLOB Ratio 0.8 RATIO (0.9-2.4); AST(SGOT) 20 U/L (15-37); Alanine Aminotransfer ALT/SGPT 17 U/L (13-56); Albumin, Serum 3.3 g/dL (3.2-5.0); Alkaline Phosphatase 70 U/L (45-117); Anion Gap 5 (5-15); BUN 3 mg/dL (7-18); Calcium,Total 8.6 mg/dL (8.5-10.1); Chloride 104 mmol/L (98-107); Creatinine, Serum 0.75 mg/dL (0.55-1.02); EST Glomerular Filtration Rate 88 mL/min (>60); Est Glom Filt Rate - Afr Amer 107 mL/min (>60); Ferritin 3 ng/mL (8-252); Globulin 4.1 g/dL (2.2-4.2); Glucose 104 mg/dL (74-106); Iron 15 ug/dL (50-170); Iron Binding Capacity,Total 455 ug/dL (250-450); Potassium 3.4 mmol/L (3.5-5.1); Protein, Total 7.4 g/dL (6.4-8.2); Sodium Level 136 mmol/L (136-145)
== END | disposition home or self-care (01) ==
LOC: MFPLAB 14:39
PROVIDERS: PCP Family Medicine; Visit Provider Family Medicine
DX: D64.9 Anemia, unspecified (principal)
CPT/HCPCS: 36415; 80053; 82728; 83540; 83550; 85025; 85045; 86850; 86900; 86901; 86920; 86922

== ENCOUNTER → 2024-01-12 | Outpatient (CLI) | payer BC, SELFPAY | END | disposition home or self-care (01) | PROVIDERS: PCP Family Medicine; Visit Provider Family Medicine | DX: D64.9 Anemia, unspecified (principal) ==

== ENCOUNTER 2024-01-15 10:35 | Outpatient (CLI) | payer BC, SELFPAY ==
[2024-01-15 11:17] VITALS: BP 139/81; PULSE 91; RESP 16; TEMP 36.5; O2SAT 98; BMI 24.0
[2024-01-15 11:59] VITALS: BP 125/70; PULSE 74; RESP 14; TEMP 36.9; O2SAT 96
[2024-01-15 12:59] VITALS: BP 145/73; PULSE 71; RESP 16; TEMP 36.3; O2SAT 145
[2024-01-15 14:36] VITALS: BP 122/66; PULSE 73; RESP 16; TEMP 36.3; O2SAT 98
[2024-01-15 15:36] VITALS: BP 142/70; PULSE 81; RESP 16; TEMP 36.9; O2SAT 98
[2024-01-15 16:07] VITALS: BP 131/85; PULSE 73; RESP 16; TEMP 36.6; O2SAT 96
== END 2024-01-15 23:59 | disposition home or self-care (01) ==
LOC: MEDOUTP 10:36
PROVIDERS: PCP Family Medicine; Referring Provider Family Medicine; Visit Provider Family Medicine
DX: D64.9 Anemia, unspecified (principal)
CPT/HCPCS: 36430; 86850; 86900; 86901; 86920; 86922; P9016

== ENCOUNTER → 2024-02-27 | Outpatient (CLI) | payer BC, SELFPAY ==
[2024-02-27 10:01] LABS: Absolute Lymphocyte Count 2.28 X10^3/uL (0.83-4.51); Basophil# 0.04 X10^3/uL; Basophil% 0.6 % (0-1); Eosinophil# 0.06 X10^3/uL; Eosinophils% 0.9 % (0-5); Hematocrit 38.2 % (37-47); Hemoglobin 11.5 g/dL (12.0-15.0); Lymphocyte # 2.28 X10^3/ul (0.83-4.51); Lymphocyte % 34.5 % (19-41); Mean Corp Hgb Conc 30.1 g/dL (32-36); Mean Corpuscular Hgb 22.5 pg (27.0-32.0); Mean Corpuscular Volume 74.9 fL (81-99); Mean Platelet Vol. 10.5 fl (6.2-12.0); Monocyte# 0.27 X10^3/uL; Monocyte% 4.1 % (0-10); NRBC Flagged by Analyzer 0 % (0-5); Neutrophil # 3.95 X10^3/uL (2.7-7.7); Neutrophil % 59.7 % (47-70); POSITIVE MORPHOLOGY YES; Platelet Count 282 K/mm3 (150-450); White Blood Count 6.6 K/mm3 (4.4-11.0)
[2024-02-27 10:03] LABS: Differential Indicated SCAN CRITERIA MET
== END | disposition home or self-care (01) ==
LOC: MFPLAB 09:04
PROVIDERS: PCP Family Medicine; Visit Provider Family Medicine
DX: D64.9 Anemia, unspecified (principal)
CPT/HCPCS: 36415; 85025

== ENCOUNTER → 2024-04-02 | Outpatient (CLI) | payer BC, SELFPAY ==
[2024-04-02 15:30] LABS: Absolute Lymphocyte Count 3.21 X10^3/uL (0.83-4.51); Absolute Neutrophil Count 3.8 X10^3/uL (2.0-7.7); Basophil# 0.04 X10^3/uL; Basophil% 0.5 % (0-1); Eosinophil# 0.07 X10^3/uL; Eosinophils% 0.9 % (0-5); Hematocrit 36.5 % (37-47); Hemoglobin 11.4 g/dL (12.0-15.0); Lymphocyte # 3.21 X10^3/ul (0.83-4.51); Lymphocyte % 43.3 % (19-41); Mean Corp Hgb Conc 31.2 g/dL (32-36); Mean Corpuscular Hgb 24.7 pg (27.0-32.0); Mean Platelet Vol. 9.9 fl (6.2-12.0); Monocyte# 0.32 X10^3/uL; Monocyte% 4.3 % (0-10); NRBC Flagged by Analyzer 0 % (0-5); Neutrophil # 3.75 X10^3/uL (2.7-7.7); Neutrophil % 50.7 % (47-70); POSITIVE MORPHOLOGY YES; Platelet Count 248 K/mm3 (150-450); RBC Distribution Width CV 23.1 % (11.6-14.6); RBC Distribution Width SD 64.9 fl (35.1-43.9); Red Blood Count 4.62 M/mm3 (4.2-5.4); White Blood Count 7.4 K/mm3 (4.4-11.0)
[2024-04-02 15:37] LABS: Differential Indicated SCAN CRITERIA MET
[2024-04-02 16:03] LABS: Anisocytosis 1+
[2024-04-02 16:08] LABS: Anion Gap 7 (5-15); BUN 7 mg/dL (7-18); BUN/Creat Ratio 6.4 RATIO (10-20); Calcium,Total 9.1 mg/dL (8.5-10.1); Chloride 105 mmol/L (98-107); EST Glomerular Filtration Rate 57 mL/min (>60); Est Glom Filt Rate - Afr Amer 69 mL/min (>60); Ferritin 7 ng/mL (8-252); Glucose 136 mg/dL (74-106); Iron 74 ug/dL (50-170); Iron Binding Capacity,Total 425 ug/dL (250-450); PERCENT IRON SATURATION 17.4 % (15.0-55.0); Potassium 3.2 mmol/L (3.5-5.1); Sodium Level 135 mmol/L (136-145)
== END | disposition home or self-care (01) ==
LOC: MFPLAB 14:28
PROVIDERS: PCP Family Medicine; Visit Provider Family Medicine
DX: D64.9 Anemia, unspecified (principal); R42 Dizziness and giddiness
CPT/HCPCS: 36415; 80048; 82728; 83540; 83550; 84443; 85025

== ENCOUNTER → 2024-04-05 | Outpatient (CLI) | payer BC, SELFPAY ==
--- NOTE | 2024-04-05 09:43 | RAD_ITS ---
HISTORY: SCIATICA. TECHNIQUE: XR Spine Lumbar 2 or 3 Views. COMPARISON: CT 12/17/2018. FINDINGS: VERTEBRAE: Vertebral body heights preserved. Posterior elements appear intact. ALIGNMENT: No significant anterior or posterior subluxation. INTERVERTEBRAL DISCS: Disc spaces maintained. SOFT TISSUES: Moderate stool throughout the colon. RAD/Lumbar Spine 2 or 3 Views IMPRESSION: No acute fracture or dislocation identified in the lumbar spine. Electronically Signed: Nery Mcelroy MD at 10:06 EDT ,
== END | disposition home or self-care (01) ==
PROVIDERS: PCP Family Medicine; Referring Provider Family Medicine; Visit Provider Family Medicine
DX: M54.32 Sciatica, left side (principal)
CPT/HCPCS: 72100